=== PATIENT | male | born 1975 | race African-American/Black ===

== ENCOUNTER 2016-12-02 07:29 | Emergency (ER) | payer OTHER ==
[2016-12-02 08:34] LABS: #Basophils 0.1 thou/uL (0.0-0.2); #Eosinphils 0.3 thou/uL (0.0-0.7); #Lymphocytes 0.8 thou/uL (1.20-3.40); #Monocytes 0.5 thou/uL (0.11-0.59); #Neutrophils 5.2 thou/uL (1.40-6.50); %Basophils 1.2 % (0.0-1.0); %Eosinophils 4.1 % (0.0-10.0); %Lymphocytes 11.8 % (21.0-51.0); Mean Platelet Volume 7.9 fL (7.4-10.4); Red Blood Cell (RBC) Count 3.62 mill/uL (4.70-6.10); White Blood Cell (WBC) Count 6.9 thou/uL (4.8-10.8)
[2016-12-02 08:59] LABS: Troponin I 0.137 ng/mL (< 0.028)
[2016-12-02 09:02] LABS: ALT (SGPT) 14 U/L (8-55); AST (SGOT) 18 U/L (5-34); Alkaline Phosphatase 160 U/L (40-150); Anion Gap 24 mmol/L (10-20); BUN (Urea Nitrogen) 41 mg/dL (8.9-20.6); Bilirubin, Total 0.6 mg/dL (0.2-1.2); Calc. Creatinine Clearance 0 mL/min (70-130); Carbon Dioxide 23 mmol/L (22-29); Chloride 99 mmol/L (98-107); Estimated GFR-MDRD 6; Globulin 4.8 g/dL (2.4-3.5); Magnesium 2.2 mg/dL (1.6-2.6); Phosphorus 7.2 mg/dL (2.3-4.7); Protein, Total 8.8 g/dL (6.0-8.3)
== END 2016-12-02 10:07 | disposition home or self-care (01) ==
LOC: ERS 07:29
DX: I12.0 Hypertensive chronic kidney disease with stage 5 chronic kidney disease or end stage renal disease (principal); N18.6 End stage renal disease; E11.9 Type 2 diabetes mellitus without complications; F31.9 Bipolar disorder, unspecified; E78.00 Pure hypercholesterolemia, unspecified; Z99.2 Dependence on renal dialysis
CPT/HCPCS: 36415; 80053; 80307; 82553; 83735; 84100; 84484; 85025; 93005

== ENCOUNTER 2016-12-02 13:26 | Inpatient (IN) | payer OTHER ==
[2016-12-02] MEDS ORDERED: Midazolam HCl 2 mg/2 ml Vial ONE (13:45)
[2016-12-02] MEDS ORDERED: Fentanyl 100 MCG/2 ML VIAL ONE (13:45)
[2016-12-02 13:54] LABS: #Basophils 0.1 thou/uL (0.0-0.2); #Eosinphils 0.2 thou/uL (0.0-0.7); #Lymphocytes 1.3 thou/uL (1.20-3.40); #Monocytes 0.6 thou/uL (0.11-0.59); #Neutrophils 8.1 thou/uL (1.40-6.50); %Basophils 0.9 % (0.0-1.0); %Eosinophils 1.7 % (0.0-10.0); %Lymphocytes 12.9 % (21.0-51.0); %Monocytes 5.7 % (0.0-10.0); Hematocrit 40.8 % (42.0-52.0); Mean Platelet Volume 8.4 fL (7.4-10.4); Red Blood Cell (RBC) Count 4.13 mill/uL (4.70-6.10); White Blood Cell (WBC) Count 10.3 thou/uL (4.8-10.8)
[2016-12-02] MEDS ORDERED: Propofol 1,000 MG/100 ML VIAL IV ONE (14:02)
[2016-12-02 14:12] LABS: Lactic Acid - Sepsis 8.4 mmol/L (0.5-2.2)
[2016-12-02 14:14] LABS: Oxyhemoglobin 97.3 % (94.0-97.0); Sodium 141 mmol/L (135-148)
[2016-12-02 14:16] LABS: ALT (SGPT) 17 U/L (8-55); AST (SGOT) 20 U/L (5-34); Alkaline Phosphatase 179 U/L (40-150); Anion Gap 30 mmol/L (10-20); BUN (Urea Nitrogen) 41 mg/dL (8.9-20.6); Bilirubin, Total 0.7 mg/dL (0.2-1.2); Calc. Creatinine Clearance 0 mL/min (70-130); Calcium 9.2 mg/dL (7.8-10.44); Carbon Dioxide 16 mmol/L (22-29); Chloride 99 mmol/L (98-107); Estimated GFR-MDRD 5; Globulin 5.4 g/dL (2.4-3.5); Protein, Total 9.9 g/dL (6.0-8.3)
[2016-12-02 14:17] LABS: Mechanical Tidal Volume 500 ml; Modified Allen's Test POSITIVE; Vent YES
[2016-12-02 14:21] LABS: Troponin I 0.157 ng/mL (< 0.028)
--- NOTE | 2016-12-02 14:49 | RAD ---
CHEST 1 VIEW: Date: 12/02/16 HISTORY: Emergency exam. COMPARISON: Chest 1 view dated 08/01/16. FINDINGS: The patient is intubated with endotracheal tube tip at the level of the clavicles. Enteric tube is i n place with tip below diaphragm, out of field of view. Mild pulmonary venous congestion. Heart size is enlarged. IMPRESSION: Endotracheal tube tip at the level of the clavicles. Enteric tube tip below diaphragm, out of field of view. POS: [facility]
[2016-12-02] MEDS ORDERED: Dextrose 5% in Water 1,000 ML IV PRN (15:43)
[2016-12-02] MEDS ORDERED: Nitroglycerin 50 MG/250 ML BOT 250 ML IVPB PRN (15:43)
[2016-12-02] MEDS ORDERED: Acetaminophen 650 MG Suppository PR PRN (15:43)
[2016-12-02] MEDS ORDERED: Artificial Tears 18 DROP/0.9 ML EA EYE PRN (15:43)
[2016-12-02] MEDS ORDERED: Eucerin (Mineral Oil/Petrolatum,White) 30 gm Jar TOP PRN (15:43)
[2016-12-02] MEDS ORDERED: Bisacodyl 10 MG SUPP PR PRN (15:43)
[2016-12-02] MEDS ORDERED: Ondansetron HCl/PF 4 MG/2 ML Vial IVP PRN (15:43)
[2016-12-02] MEDS ORDERED: HumaLOG 300 UNITS/3 ML VIAL SC PRN (15:43)
[2016-12-02] MEDS ORDERED: Dextrose 50% Abboject 50 ML SYRINGE SLOW IVP PRN (15:43)
[2016-12-02] MEDS ORDERED: Sedation Protocol FS ONE (15:43)
--- NOTE | 2016-12-02 16:02 | RAD ---
RADIOGRAPH CHEST 1 VIEW: Date: 12/02/16 Time: 2:31 p.m. HISTORY: 41-year-old male status post central line placement. COMPARISON: 12/02/16, 1:29 p.m. FINDINGS: There is a new right subclavian central vascular catheter with distal tip overlying the SVC/right at rial junction. No pneumothorax is identified, but this is a supine view, which would be insensitive for pneumothorax defection. Cardiomegaly. Left lower lobe air space density partially silhouettes th e left hemidiaphragm, worse than before. This is probably atelectasis. Endotracheal tube and NG tube remain. Mild small questionable air space density at right base has developed. IMPRESSION: 1. Right subclavian central vascular catheter placement. 2. Endotracheal tube and NG tube remain. 3. Interval worsening of what may represent left lower lobe atelectasis. ERASTO [] POS: [facility]
[2016-12-02] MEDS ORDERED: DISCONTINUE PREVIOUS NARCOTIC PAIN MEDICATIONS AND BENZODIAZEPINES FS SCH (16:06)
[2016-12-02] MEDS ORDERED: Morphine Sulfate 2 MG/ML SYRINGE SLOW IVP PRN (16:06)
[2016-12-02] MEDS ORDERED: Fentanyl 20 MCG/ML 250 ML IVPB SCH (16:06)
--- NOTE | 2016-12-02 16:09 | CT ---
CT BRAIN NONCONTRAST: 12/02/16 HISTORY: 41-year-old male status post seizure. FINDINGS: There is no midline shift or any other mass effect. There is no evidence of acute intracranial hemo rrhage, large cortical infarct, obstructive hydrocephalus, or extraaxial fluid collection. The calv arium is intact. There is diffuse parenchymal volume loss. There are low attenuation areas in the white matter. These are nonspecific, but in they are probably chronic ischemic white matter changes due to microvascular atherosclerosis. IMPRESSION: 1) No acute intracranial findings. 2) Involutional changes and chronic ischemic white matter changes. 3) Fluid completely filling the nasal cavity and nasopharyngeal airway, a new finding since the prev ious CT of 08/01/16. 4) Diffuse scalp swelling and thickening. 5) Posterior moderately large suboccipital soft tissue density mass, stable since prior CTs dating b ack to 10/01/10. 6) Mucous retention cysts in the bilateral maxillary sinuses and left frontal sinus. 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 raul cedillo POS: [facility]
--- NOTE | 2016-12-02 16:19 | HP ---
PRIMARY CARE PHYSICIAN: Jessica Petty M.D. REASONS FOR ADMISSION: Acute respiratory failure, hypertensive emergency, seizure, encephalopathy, pulmonary edema and volume overload. HISTORY OF PRESENT ILLNESS: A 41-year-old -[place] male with multiple medical problems incl uding hypertension, end-stage renal disease on hemodialysis, diabetes type 2, dyslipidemia and perip heral vascular disease, who was earlier seen in the emergency room around 7:30 a.m. The patient was brought to the ER because he fell down. As per report from the emergency room physician, he was ga mbling and when he was getting out of chair at that time, he fell down and subsequently he was not a ble to maintain his balance. He did not have any head injury. He was brought to emergency room for evaluation. At that time, patient's blood pressure was very high. The patient was due for dialysi s today and that is why he was discharged from the emergency room to get his regular dialysis at his own dialysis center. The patient was waiting in the triage for his ride over there. He was having generalized tonic-clon ic seizure, which was witnessed. Subsequently, he was brought to emergency room for resuscitation. The patient was encephalopathic. He was hypertensive with blood pressure of 245/154 and he was tac hycardic with pulse of 123 and tachypneic with respiratory rate of 28. He was also hypothermic with a temperature of 93.2. He was barely maintaining oxygen saturation with a nonrebreather, but he wa s going hypoxia again and again and that is why this patient required intubation. He did not have any IV access and that is why intraosseous IV line was obtained and subsequently, keith mathews was getting central line. After intubation in the emergency room, he did not have any further seizure. The patient did not get his dialysis yet. At this point, the patient was intubated in the emergency room and that is why unable to get any his tory from him, but I spoke with the ER physician. We are also going to keep this patient in the [facility] after I spoke with Dr. Person, who will manage ventilator and Dr. Che was notified to get em ergent dialysis. REVIEW OF SYSTEMS: All review of systems tried to review with the patient, but unable to review at this point because the patient is intubated and patient was encephalopathic. PAST MEDICAL HISTORY: As per our previous hospital records, the patient has end-stage renal disease , on hemodialysis; labile hypertension; diabetes type 2, on oral hypoglycemics; dyslipidemia; histor y of seizure as a child, but not on any seizure medication; history of left lower extremity tenderne ss infection, status post left below knee amputation and history of polysubstance abuse in the past. PAST SURGICAL HISTORY: Left below knee amputation and left upper extremity AV fistula placement. PAST PSYCHIATRIC HISTORY: Anxiety and depression. ALLERGIES: No known drug allergies. FAMILY HISTORY: Multiple family members with hypertension and diabetes. SOCIAL HISTORY: The patient lives in [place], [place]. He is on disability. No history of tobacco, al cohol or illicit drug abuse currently, but he has a long history of drug abuse with cocaine and andreas jian. CURRENT HOME MEDICATIONS: Based on our hospital record, the patient is on following medications: X anax 2 mg b.i.d., amlodipine 10 mg daily, aspirin 81 mg p.o. daily, PhosLo 667 mg t.i.d., lisinopril 20 mg daily, Toprol-XL 50 mg p.o. daily, minoxidil 20 mg p.o. daily, Zocor 20 mg p.o. at bedtime, R envela 800 mg p.o. daily and glipizide ER 10 mg p.o. daily. EMERGENCY ROOM COURSE: The patient is currently on propofol drip. The patient was given Versed, fe ntanyl, etomidate and rocuronium. PHYSICAL EXAMINATION: VITAL SIGNS: On arrival, blood pressure 245/154, pulse 123, respiratory rate 28, saturation 94% on ventilator and weight 106.5 kilograms. GENERAL: The patient is currently intubated, no acute distress, on ventilator. HEAD: Normocephalic atraumatic. EYES: Pupils are round and reactive to light. ENT: Endotracheal tube in place. NECK: Supple. Range of motion is normal. No meningeal signs of irritation. LUNGS: Bilateral rales noted. Coarse breath sounds noted. Air entry reduced. CARDIAC: S1 and S2 regular. Tachycardia. No murmur, no gallop, no rub. EXTREMITIES: Upper extremity; dialysis graft in the right upper extremity. Passive movement is nor mal. Lower extremity; left jmirs-sjj-ptjo amputation with prosthesis. Right lower extremity has ed nathan. NEUROLOGIC: Unable to assess at this point because the patient is intubated. SKIN: Diaphoretic. SIGNIFICANT LABS AND IMAGING: EKG: Sinus tachycardia. Chest x-ray: Cardiomegaly congestion. CBC : WBC 10.3, hemoglobin 12.7 and platelet 288. ABG reviewed. BMP: Sodium 140, potassium 4.9, chlo ride 99, carbon dioxide 16, anion gap 30, BUN 41, creatinine 12.34, glucose 130, calcium 9.2 and lac tic acid 8.4. LFT: AST 20, ALT 17, alkaline phosphatase 179 and albumin 4.5. ASSESSMENT, PLAN AND IMPRESSION: 1. Acute respiratory failure with hypoxia, most likely because of combined etiology of fluid overlo ad as well as encephalopathy after seizure, all contributed to his hypoxic respiratory failure. Cur rently, the patient is intubated. I spoke with Dr. Person, senior procurement specialist photonics engineer to manage ventila tor. The patient will be admitted in ICU. 2. Acute pulmonary edema. The patient has coarse rales heard from distance. The patient is hypert ensive emergency. The patient was due for dialysis. The patient has end-stage renal disease, on he modialysis and he did not have any dialysis today. He has volume overload status. At this point, I spoke with Dr. Che to do emergent dialysis after admission. The patient is already intubated. 3. Hypertensive emergency. We will closely monitor in CCU. If blood pressure does not come down, then the patient may need a nitroglycerin drip. We will decide about continuous nitroglycerin drip in the next half an hour or will use p.r.n. basis. Our goal is to keep his blood pressure in the 16 0s. We will also use parenteral medication to control his blood pressure. 4. Seizure. The patient had history of seizure as a childhood, most likely metabolic-induced seizu re. We will consult Neurology for their opinion. We will do CT brain in the emergency room. This is a witnessed seizure. As this is first time seizure and that is why he may not need seizure medic ation. We will watch for any seizure. 5. Lactic acidosis, likely related with hypoxia and seizure. We will repeat lactic acid level teresa rrow. 6. Diabetes type 2. We will hold oral diabetic medication. We will continue insulin as per slidin g scale per protocol. We will check Accu-Chek every 6 hourly. 7. Anxiety and depression. The patient was on Xanax 2 mg p.o. b.i.d., unsure if this patient is st ill taking that medication or not. 8. Secondary hyperparathyroidism of renal origin. We will continue PhosLo and Renagel as per home dosage after confirming his home medication. 9. Dyslipidemia. After confirmation of his home medication, we will continue Zocor. 10. Deep venous thrombosis prophylaxis. Heparin 5000 units subcu twice daily. 11. Gastrointestinal prophylaxis. Protonix 40 mg IV daily. 12. CODE STATUS: The patient is FULL CODE. 13. Disposition plan based on clinical course. Total time spent more than 30 minutes to provide critical care to this patient in the emergency room .
[2016-12-02] MEDS: Propofol 1,000 MG/100 ML VIAL IV PRN ×3 (16:33→23:00)
[2016-12-02] MEDS: Sodium Chloride 0.9% 1,000 ML IV SCH (16:44)
--- NOTE | 2016-12-02 17:02 | CON ---
DATE OF CONSULTATION: 12/02/2016 Forty minutes critical care time. REASON FOR CONSULTATION: Acute respiratory failure. HISTORY OF PRESENT ILLNESS: The patient is a 41-year-old male who missed a dialysis session earlier today. He came to the ER, apparently had a seizure in the waiting room, not sure what the circumst ances were behind the seizure. He did not receive any anticonvulsants according to the nursing staf f from the ER, he was intubated and placed on propofol. PAST MEDICAL HISTORY: 1. End-stage renal disease, requiring hemodialysis. 2. Diabetes mellitus. 3. Hypertension. 4. Hyperlipidemia. 5. Childhood seizures. 6. Peripheral vascular disease. 7. Polysubstance abuse in the past. 8. Depression. 9. Anxiety. PAST SURGICAL HISTORY: He has a left yesho-nmp-jsod amputation. He has a left upper extremity AV f istula placement. MEDICATIONS: Prior to admission, glipizide 10 mg every morning, simvastatin 20 mg daily, Renagel 1 tablet daily, minoxidil 20 mg daily, metoprolol XL 50 mg daily, lisinopril 1 tablet daily - dose unk nown, aspirin 81 mg daily, amlodipine 10 mg daily, alprazolam 2 mg b.i.d. Last pneumococcal vaccine on 02/18/2013. ALLERGIES: None. SOCIAL HISTORY: Nonsmoker. He has a history of marijuana and cocaine use in the past, I am not dina e currently. REVIEW OF SYSTEMS: Cannot be obtainable as the patient is intubated. PHYSICAL EXAMINATION: VITAL SIGNS: Pulse 75, O2 sat 100%, respiratory rate 22, blood pressure 187/98. GENERAL: The patient is currently intubated on mechanical ventilation. HEENT: Pupils react. Sclerae anicteric. Oropharynx, endotracheal tube and orogastric tube in place . NECK: Without adenopathy or JVD. LUNGS: Coarse breath sounds bilaterally. CARDIOVASCULAR: S1, S2 regular, without murmur. ABDOMEN: Soft and nontender. EXTREMITIES: Left upper extremity dialysis shunt with palpable thrill. He has a left lower extremi ty xawsr-vop-dmnh amputation. He had a right tibial IO catheter in place which was removed while I was in the room by the nursing staff. LABORATORY AND X-RAY FINDINGS: PH 7.21, pCO2 of 60, pO2 of 231 on SIMV rate 15, tidal volume 500, P EEP 5, FiO2 50%. White blood cell count 10.3, hemoglobin 12.7, hematocrit 40.8, platelet count 288. Sodium 140, potassium 4.9, chloride 99, CO2 of 16, BUN 41, creatinine 12, glucose 130, lactate 8.4 , troponin 0.157. ASSESSMENT: 1. Decompensated chronic renal failure with fluid overload. 2. Seizure. 3. Acute hypercapnic respiratory failure. 4. Lactic acidosis - likely secondary to the seizure. PLAN: 1. Continue mechanical ventilation until the patient has had an opportunity to undergo dialysis. 2. Restart antihypertensives. 3. We would load him with some fosphenytoin. 4. We will follow.
--- NOTE | 2016-12-02 18:10 | CON ---
DATE OF CONSULTATION: 12/02/2016 NEPHROLOGY CONSULTATION REASON FOR CONSULTATION: Respiratory failure, pulmonary edema and end-stage renal disease. HISTORY OF PRESENT ILLNESS: This is a 41-year-old gentleman who presented to the hospital after a s udden onset of acute respiratory failure. The patient has a history of noncompliance, also had seiz ure activity. The patient denies headache. The patient can give no further history as he is intuba pasquale. The patient was supported respiratory jacobs with intubation. PAST MEDICAL HISTORY: Significant for end-stage renal disease, noncompliance, diabetes mellitus, hy pertension, hyperlipidemia, peripheral vascular disease, polysubstance abuse, depression, anxiety, h istory of AV fistula, history of left below knee amputation. HOME MEDICATIONS: List reviewed. ALLERGIES: Reviewed. SOCIOECONOMIC HISTORY: Unavailable. REVIEW OF SYSTEMS: Not obtainable. PHYSICAL EXAMINATION: GENERAL: Patient is resting. VITAL SIGNS: Afebrile, pulse 75, breathing at 16, blood pressure 187/88. GENERAL APPEARANCE AND MENTAL STATUS: Fair. HEAD/NECK: Normocephalic. Atraumatic. EYES: EOMI. No deformity. EARS: Clear. No ulcers. NOSE: Intact. No lesions. MOUTH: Clear. No discharge. THROAT: Clear. No exudate. LUNGS: Clear. No crackles. CARDIAC: S1, S2. No rub. ABDOMEN: Benign. BS+. GENITALIA/RECTUM: Plascencia absent. BACK/EXTREMITIES: Edema 0+ Ulcer- NEUROLOGICAL: Exam cannot be done as the patient is intubated. SKIN: Rash- Bruise- LYMPHATICS: Edema- Ulcer- LABORATORY DATA: Show sodium 140, potassium 4.1. ASSESSMENT AND RECOMMENDATIONS: 1. End-stage renal disease with respiratory failure. Urgent dialysis was initiated and the dialysi s nurse . 2. Anemia, stable. 3. Hypertension. 4. Plan ultrafiltration. 5. Lactic acidosis secondary to seizure. Overall, prognosis is extremely poor. Noncompliance will be addressed to the patient.
[2016-12-02 18:28] LABS: Troponin I 0.162 ng/mL (< 0.028)
[2016-12-02 18:33] LABS: Critical Call CKMBM RESULT DECREASING
[2016-12-02] MEDS: Lorazepam 2 MG/ML VIAL SLOW IVP PRN ×2 (19:13→21:32)
[2016-12-02] MEDS: Labetalol HCl 100 MG/20 ML VIAL SLOW IVP PRN (19:41)
[2016-12-02] MEDS ORDERED: niCARdipine HCl 25 MG in Sodium Chloride 0.9% 250 ML 240 ML IVPB SCH ×2 (20:45→21:00)
[2016-12-02] MEDS ORDERED: Heparin 5,000 UNITS/ML VIAL SC SCH (21:00)
[2016-12-02] MEDS ORDERED: Valproate Sodium 1,000 MG in Sodium Chloride 0.9% 100 ML IVPB SCH (21:00)
[2016-12-02 21:26] LABS: Oxyhemoglobin 96.9 % (94.0-97.0); Sodium 142 mmol/L (135-148)
[2016-12-02 21:29] LABS: Mechanical Tidal Volume 500 ml; Mode SIMV; Pressure Support 10 cmH2O; Vent YES
[2016-12-02 22:27] LABS: Troponin I 0.196 ng/mL (< 0.028)
[2016-12-02 22:29] LABS: Critical Call CKMBM RESULT DECREASING
[2016-12-03] MEDS: Valproate Sodium 500 MG in Sodium Chloride 0.9% 100 ML IVPB SCH ×2 (01:36→14:56)
[2016-12-03 03:21] LABS: #Eosinphils 0.1 thou/uL (0.0-0.7); #Lymphocytes 0.6 thou/uL (1.20-3.40); #Monocytes 0.7 thou/uL (0.11-0.59); #Neutrophils 12.8 thou/uL (1.40-6.50); %Basophils 0.2 % (0.0-1.0); %Eosinophils 0.5 % (0.0-10.0); %Lymphocytes 4.5 % (21.0-51.0); %Monocytes 4.8 % (0.0-10.0); Hematocrit 28.9 % (42.0-52.0); Mean Platelet Volume 8.1 fL (7.4-10.4); Red Blood Cell (RBC) Count 3.02 mill/uL (4.70-6.10); White Blood Cell (WBC) Count 14.3 thou/uL (4.8-10.8)
[2016-12-03] MEDS: Propofol 1,000 MG/100 ML VIAL IV PRN ×4 (03:31→21:39)
[2016-12-03 04:01] LABS: ALT (SGPT) 10 U/L (8-55); AST (SGOT) 12 U/L (5-34); Alkaline Phosphatase 127 U/L (40-150); Anion Gap 18 mmol/L (10-20); BUN (Urea Nitrogen) 26 mg/dL (8.9-20.6); Bilirubin, Total 0.6 mg/dL (0.2-1.2); Calc. Creatinine Clearance 16 mL/min (70-130); Calcium 8.4 mg/dL (7.8-10.44); Carbon Dioxide 29 mmol/L (22-29); Chloride 99 mmol/L (98-107); Estimated GFR-MDRD 8; Globulin 3.6 g/dL (2.4-3.5); Protein, Total 6.8 g/dL (6.0-8.3)
[2016-12-03 06:42] LABS: Oxyhemoglobin 95.1 % (94.0-97.0); Sodium 141 mmol/L (135-148)
[2016-12-03 06:44] LABS: Mechanical Tidal Volume 500 ml; Modified Allen's Test NOT DONE; Vent YES
[2016-12-03 06:45] LABS: Mode SIMV/PSV; Pressure Support 10 cmH2O
--- NOTE | 2016-12-03 07:37 | PRG ---
DATE OF SERVICE: 12/03/2016 Thirty-five minutes critical care time. SUBJECTIVE: Mr. Wright remains intubated on mechanical ventilation. There have been no acute yoon ges in his condition overnight. PHYSICAL EXAMINATION: His temperature is 99.5, pulse 72, blood pressure 133/50, 24-hour intake 1268 , output 1200. NEUROLOGICAL: He will withdraw to deep painful stimuli. Does not follow commands. HEENT: His pupils react to light. He does have a gag reflex. HEENT is otherwise unremarkable exce pt for the endotracheal tube and orogastric tube in place. NECK: No adenopathy, no JVD. CHEST: Clear without wheezing. CARDIAC: S1, S2 regular, without murmur. ABDOMEN: Soft, obese, nontender, nondistended. EXTREMITIES: Left ekbzg-svd-ivvy amputation and left upper arm AV fistula. LABORATORY DATA: White blood count 14.3, hemoglobin 9.1, hematocrit 28.9, platelet count 234. PH 7 .46, pCO2 of 42, pO2 of 79 on SIMV rate 16, tidal volume 500, PEEP 5, pressure support 10, FiO2 30%. Sodium 141, potassium 4.8, chloride 99, CO2 29, BUN 26, creatinine 9.2, and glucose 114. Lactate 2.4. ASSESSMENT: 1. Acute respiratory failure, requiring mechanical ventilation. 2. Encephalopathy -- patient may be postictal after seizures yesterday. 3. Hypercapnic respiratory failure, which has improved. 4. Lactic acidosis, which is improved and was probably secondary to seizures. PLAN: 1. Continue mechanical ventilation until the patient's mental status has improved. 2. Continue nicardipine drip for control of blood pressure. 3. Initiate enteral tube feedings. 4. Seizure management per Neurology. 5. Renal failure management per Nephrology. 6. Adjust mechanical ventilation rate.
--- NOTE | 2016-12-03 07:38 | PDOC.PN ---
- Subjective Encounter Start Date: 12/03/16 Encounter Start Time: 07:36 Mr. Wright is intubated, he has mild sedation, and is a little agitated, and has been biting on the ET tube. - Objective MAR Reviewed: Yes Vital Signs & Weight: Vital Signs (12 hours) Temp Pulse Resp BP Pulse Ox 12/03/16 06:14 72 134/54 L 12/03/16 06:11 73 16 100 12/03/16 06:00 16 12/03/16 05:00 99.5 F 12/03/16 04:00 16 12/03/16 02:29 76 12/03/16 01:59 16 12/03/16 00:31 70 16 100 12/03/16 00:00 100.0 F H 16 12/02/16 22:05 112 H 12/02/16 22:00 16 12/02/16 20:00 98.8 F 20 12/02/16 19:50 98.9 F 108 H 20 100 12/02/16 19:41 108 H 209/114 H Weight Weight 230 lb 6.129 oz Most Recent Monitor Data Heart Rate from ECG 72 NIBP 133/50 NIBP BP-Mean 95 Respiration from ECG 14 SpO2 100 I&O: 12/02/16 12/03/16 12/04/16 06:59 06:59 06:59 Intake Total 1268.1 Output Total 1200 Balance 68.1 Result Diagrams: 12/03/16 02:53 12/03/16 02:53 Additional Labs: Accuchecks 12/03/16 12/03/16 12/02/16 06:18 00:09 18:30 POC Glucose 121 H 95 90 Phys Exam - Physical Examination HEENT: PERRLA + coarse breath sounds Cardiovascular: RRR, no significant murmur Gastrointestinal: soft, non-tender, positive bowel sounds Musculoskeletal: no edema Dx/Plan (1) Seizure Code(s): R56.9 - UNSPECIFIED CONVULSIONS Status: Acute (2) Acute respiratory failure Code(s): J96.00 - ACUTE RESPIRATORY FAILURE, UNSP W HYPOXIA OR HYPERCAPNIA Status: Acute (3) Diabetes mellitus type 2 Code(s): E11.9 - TYPE 2 DIABETES MELLITUS WITHOUT COMPLICATIONS Status: Chronic (4) End stage renal failure on dialysis Code(s): N18.6 - END STAGE RENAL DISEASE; Z99.2 - DEPENDENCE ON RENAL DIALYSIS Status: Chronic (5) Malignant hypertension Code(s): I10 - ESSENTIAL (PRIMARY) HYPERTENSION Status: Chronic - Plan * Acute hypoxic respiratory failure- following seizure- patient is currently intubated- Manganese Heater Managing * HTN- patient is currently on a Cardene drip- he now has an OG tube- will start some of his oral antihypertensives, and begin to wean Cardene drip * DM- continue SSI insulin. * Seizure- ? etiology from Hypertensive emergency- Patient has been started on Valproate by Neurologist * ESRD- dialysis as per Nephrology
[2016-12-03] MEDS ORDERED: Lisinopril 20 MG TAB PO SCH (09:00)
[2016-12-03] MEDS: Famotidine/PF 20 mg/2ml Vial SLOW IVP SCH (09:25)
[2016-12-03] MEDS: Lisinopril 20 MG TAB PO SCH (09:26)
--- NOTE | 2016-12-03 10:07 | RAD ---
RADIOGRAPH CHEST 1 VIEW: Date: 12/03/16 Time: 0510 HOURS HISTORY: 41-year-old male in respiratory failure. COMPARISON: 12/02/16 at 1431 hours. FINDINGS: There has been mild interval improvement of aeration in the retrocardiac portion of left lower lobe, with better visualization of the medial aspect of the left hemidiaphragm now. Small air space densi ty at the right medial base lower lobe remains. Cardiomegaly remains. Endotracheal tube, NG tube, an d right subclavian central venous catheter remain. Pulmonary vascular prominence. No pneumothorax. N o interval change overall. IMPRESSION: 1. Cardiomegaly. 2. Mild bilateral lower lobe nonspecific air space densities. The one on the left has improved. 3. No other interval change. ERASTO [] POS: [facility]
--- NOTE | 2016-12-03 10:42 | PRG ---
DATE OF SERVICE: 12/03/2016 SUBJECTIVE: This is a 41-year-old gentleman being seen for end-stage renal disease. PHYSICAL EXAMINATION: GENERAL: Patient is resting. VITAL SIGNS: Afebrile, pulse 80, breathing at 16, blood pressure 140/63. GENERAL APPEARANCE AND MENTAL STATUS: Fair. HEAD/NECK: Normocephalic. Atraumatic. EYES: EOMI. No deformity. EARS: Clear. No ulcers. NOSE: Intact. No lesions. MOUTH: Clear. No discharge. THROAT: Clear. No exudate. LUNGS: Clear. No crackles. CARDIAC: S1, S2. No rub. ABDOMEN: Benign. BS+. GENITALIA/RECTUM: Plascencia absent. BACK/EXTREMITIES: Edema 0+ Ulcer- NEUROLOGICAL: The patient is resting. SKIN: Rash- Bruise- LYMPHATICS: Edema- Ulcer- LABORATORY DATA: Show hemoglobin 9.1, potassium is 4.8. ASSESSMENT AND RECOMMENDATIONS: 1. Stage 6 chronic kidney disease. We will plan dialysis as scheduled. 2. Pulmonary edema. We will plan dialysis. 3. Hypertension, stable. 4. Medications based on glomerular filtration rate are appropriate.
[2016-12-03] MEDS: Sodium Chloride 0.9% 1,000 ML IV SCH (17:57)
[2016-12-03] MEDS ORDERED: Pantoprazole 40 MG VIAL IVP SCH (21:00)
--- NOTE | 2016-12-03 21:58 | CON ---
DATE OF CONSULTATION: 12/03/2016 REFERRING PHYSICIAN: Dr. Josiah Flores. REASON FOR CONSULTATION: Status epilepticus. HISTORY OF PRESENT ILLNESS: Mr. Wright is a 41-year-old -Emirati male with multiple medica l problems including hypertension, end-stage renal disease on dialysis, diabetes, dyslipidemia, and peripheral vascular disease, who has been consulted for evaluation of seizures. History is obtained from patient's medical chart. Apparently, he was gambling and when he was getting out of chair, at that time he fell down and subsequently he was not able to maintain his balance. He was brought to the Emergency Room for further evaluation. At that time, patient's blood pressure was very high. Patient was due for dialysis on that day and as they felt that this was secondary to him missing beverley lysis for a couple of times a day, he was planned to be discharged home for outpatient dialysis. Ty mathews was waiting in the triage room and while he was there he started having generalized tonic-clon ic seizure, which was witnessed. He was brought back to the emergency room and he had to be intubat ed to protect his airways. Apparently, the patient had episodes of myoclonic jerks. There have bee n witnessed by the nurses. There have been very persistent. I did speak with patient's mother who was at bedside. She reported that patient has a history of seizure disorder in the past, but there was probably for about 10 years ago. He has not been on any seizure medications since that time. Bethany cuellar has not had any seizures since that time. PAST MEDICAL HISTORY: Significant for hypertension, diabetes, hyperlipidemia, end-stage renal disea se on dialysis, history of seizure as a child and history of polysubstance abuse. PAST SURGICAL HISTORY: Significant for left below the knee amputation, left upper extremity AV fist janette placement. SOCIAL HISTORY: Patient does not smoke, drink alcohol, or use illicit drugs; however, he does have a history of cocaine and marijuana use in the past. CURRENT MEDICATIONS: Please review MAR. ALLERGIES: No known drug allergies. REVIEW OF SYSTEMS: Unable to obtain. FAMILY HISTORY: Noncontributory. PHYSICAL EXAMINATION: VITAL SIGNS: Blood pressure of 149/78, pulse of 66, temperature of 98.4, respirations of 17, O2 sat s of 99% on room air. GENERAL: Intubated and sedated -Emirati male, in no apparent distress. RESPIRATORY: Clear to auscultation bilaterally. CARDIOVASCULAR: Regular rate and rhythm. NEUROLOGIC: Mental status: The patient is intubated and sedated with propofol. He does not follow any commands. Cranial nerves: Pupils are 3 mm and reactive. Corneal reflexes are present bilater ally. He does breathe over the ventilator machine. Motor exam showed normal tone and bulk in both upper and lower extremities. He spontaneously moves both upper and lower extremities and he is on 2 -point restraint. Sensory: He withdraws to pain in both upper and lower extremities. Babinski, pl marianna responses flexion bilaterally. LABORATORY DATA: Reviewed, which included CBC, CMP, which is significant for WBC of 14.3, hemoglobi n 9.1, hematocrit 28.9, BUN of 26, creatinine 9.16, otherwise, unremarkable. IMAGING STUDIES: CT head without contrast was reviewed, which showed no acute intracranial abnormal ity. IMPRESSION: 1. Generalized tonic-clonic seizure. 2. Myoclonic jerking. 3. End-stage renal disease on dialysis. ASSESSMENT AND PLAN: Mr. Wright is a 41-year-old -Emirati male with his multiple medical p [facility], who presented with multiple seizures. Yesterday, I had started patient on Depacon IV with 1000 mg loading dose followed by 500 mg b.i.d. of maintenance therapy. This has helped reduce the m yoclonic jerks. There were witnessed by the nurse. At this time, I would recommend continuing on D epacon IV 500 mg b.i.d. I will check a Depakote level in the morning. I will obtain MRI brain with out contrast and EEG on tomorrow morning. Continue supportive care. Thank you for consultation.
[2016-12-04] MEDS: Lorazepam 2 MG/ML VIAL SLOW IVP PRN (00:25)
[2016-12-04] MEDS: Valproate Sodium 500 MG in Sodium Chloride 0.9% 100 ML IVPB SCH ×2 (01:09→15:30)
[2016-12-04] MEDS: Propofol 1,000 MG/100 ML VIAL IV PRN ×5 (01:13→20:27)
--- NOTE | 2016-12-04 01:20 | PDOC.EVN ---
Event Note - Event Note Event Note: Pt seen for: penile bleeding. Intubated, unable to provide any history. Bleeding followed removal of Plascencia catheter. Urology service has been consulted (pt also had a high residual, unclear whether blood or urine), pt going for cystoscopy.
[2016-12-04 03:23] LABS: Bilirubin Negative (Negative); Blood, Urine Large (Negative); Glucose, Urine (Dipstick) Negative (Negative); Ketone, Urine Trace mg/dL (Negative); Nitrite Negative (Negative); Protein, Urine (Dipstick) 300 mg/dL (Neg-Trace)
[2016-12-04 03:26] LABS: Bacteria/HPF None Seen HPF (None Seen); Hyaline Casts/LPF 0-3 HYALINE CAST LPF (0-3 Hyaline); RBC/HPF GREATER THAN 50-TNTC HPF (0-3); Squamous Epithelial 0-3 HPF (0-3)
[2016-12-04 03:37] LABS: #Eosinphils 0.1 thou/uL (0.0-0.7); #Lymphocytes 0.7 thou/uL (1.20-3.40); #Monocytes 0.3 thou/uL (0.11-0.59); #Neutrophils 18.8 thou/uL (1.40-6.50); %Basophils 0.2 % (0.0-1.0); %Eosinophils 0.6 % (0.0-10.0); %Lymphocytes 3.4 % (21.0-51.0); %Monocytes 1.7 % (0.0-10.0); Hematocrit 33.6 % (42.0-52.0); Mean Platelet Volume 7.9 fL (7.4-10.4); White Blood Cell (WBC) Count 19.9 thou/uL (4.8-10.8)
--- NOTE | 2016-12-04 04:45 | OP ---
DATE OF PROCEDURE: 12/04/2016 SURGEON: Dr. Lionel Araiza PREPROCEDUREAL DIAGNOSES: 1. Urinary retention of over 700 mL. 2. History of no urine output for more than 24 hours. 2. Gross hematuria with possible catheter misplacement. POSTOPERATIVE DIAGNOSES: 1. Urinary retention of over 700 mL. 2. History of no urine output for more than 24 hours. 3. Gross hematuria with possible catheter misplacement. 4. Membranous urethral level trauma secondary to balloon insufflation. 5. Benign prostatic hypertrophy with obstruction. 6. Distal urethral stricture disease of uncertain origin, likely vascular secondary to the patient' s known peripheral vascular disease. 7. Urinary retention of approximately 800 mL. PROCEDURE: 1. Cystourethroscopy, 18216. 2. Complicated Plascencia catheter placement over Glidewire 81964. BRIEF HISTORY AND INDICATION FOR PROCEDURE: Mr. Krishna Wright is a 41-year-old Am erican male who presented to the emergency department yesterday after apparent witnessed seizure whi le gambling with friends. The patient was brought to the emergency department, developed a second s eizure. The patient is routine hemodialysis patient of Dr. Erik Che'rubens secondary to hypertension an d diabetes mellitus. The patient also has peripheral vascular disease, has undergone a previous bel ow knee amputation on the left side. Mr. Wright had an indwelling Plascencia catheter placed during his initial hospitalization for his second seizure day before yesterday and had no urine output for mor e than 24 hours. The patient's indwelling Plascencia catheter was discontinued and bright red blood per urethra was noted. I was consulted to evaluate and assess the patient at that time. I did have dur ing the course of the evaluation of the patient a bladder scan performed which showed a residual vol ume within his bladder of 700 mL. Based on the findings, we opted to proceed with cystoscopic assessment. Consent was obtained from t he patient's family via telephone due to the fact that the patient was unable to consent for himself due to intubation and sedated status. TECHNICAL PROCEDURE: Consent was verified. The patient was evaluated in his Intensive Care Unit be d. He was prepped and draped in usual sterile fashion using Betadine prep. The circumcised penis a ppeared to be without gross external lesion, although gross blood was present per urethra. A comple te physical exam was performed. Please see the separately dictated consultation note on this patien t. The patient was cystoscopically evaluated using a 14-Tuvaluan flexible scope, which was passed per ure thra after application of 5 mL of 2% viscous lidocaine jelly. This was advanced and a large amount of clot material was observed in the patient's urethra was terminated at the urinary sphincter level . Careful evaluation notes injury within the 5 cm distal to the urinary sphincter. We were able to negotiate into the patient's prostate gland, which appeared to be obstructive in character and thro ugh this enlarged prostate gland into the patient's bladder. There was no significant bleeding obse rved within the patient's bladder. We placed a 0.035 inch Glidewire into the patient's bladder. We then removed the flexible cystoscope leaving the wire in place. We utilized [place] technique to p lace an 18 [place] 3-way irrigation catheter into the patient's bladder. The catheter was advanced i nto the patient's bladder and inflated to 30 mL. Catheter was then placed to a CBI bag and also to a Plascencia drainage bag. We placed the CBI into the off position in case it is needed for later hematu kathy episodes. The initial drainage from the patient's bladder appeared to be about 800 mL of relati vely dark urine indicating a probable ability to concentrate to some degree. FINDINGS: 1. Probable urethral injury in the bulbar area secondary to catheterization. 2. Urinary retention, likely secondary to enlarged prostate gland. 3. Distal urethral strictures of uncertain, but probable vascular origin. COMPLICATIONS: None.
[2016-12-04 05:25] LABS: Oxyhemoglobin 91.1 % (94.0-97.0); Sodium 141 mmol/L (135-148)
[2016-12-04 05:26] LABS: Mechanical Tidal Volume 500 ml; Mode SIMV; Pressure Support 10 cmH2O; Vent YES
[2016-12-04] MEDS: Acetaminophen 650 MG/20.3 ML UDCUP PER TUBE PRN (06:23)
[2016-12-04 07:00] LABS: Anion Gap 22 mmol/L (10-20); BUN (Urea Nitrogen) 37 mg/dL (8.9-20.6); Calc. Creatinine Clearance 13 mL/min (70-130); Calcium 8.2 mg/dL (7.8-10.44); Carbon Dioxide 26 mmol/L (22-29); Chloride 98 mmol/L (98-107); Estimated GFR-MDRD 6
--- NOTE | 2016-12-04 07:10 | PRG ---
DATE OF SERVICE: 12/04/2016 Thirty-five minutes critical care time. SUBJECTIVE: Mr. Wright remains intubated on mechanical ventilation. He developed urethral bleedin g last night after his Plascencia was pulled and Urology had to be consulted. OBJECTIVE: VITALSIGNS: On exam today, his temperature is 103, pulse 93, blood pressure 143/64. A 24 hour inta ke 1659, output 470. NEUROLOGICAL: The patient is not following commands, but will wake up. HEENT: Pupils react. Sclerae are anicteric. Oropharynx: ET tube in place, has a leak. CARDIOVASCULAR: S1 and S2 regular. LUNGS: Coarse rhonchi. ABDOMEN: Soft, nontender. EXTREMITIES: No edema. He has palpable thrill, left upper extremity shunt. LABORATORY DATA: White blood cell count 19.9, hemoglobin 10, hematocrit 33.6, platelet count 242, p H 7.47, PCO2 39, pO2 60. Valproic acid low at 42. ASSESSMENT: 1. Acute respiratory failure requiring mechanical ventilation. 2. Fever - has a new right lower lobe infiltrate on chest x-ray. 3. Acute renal failure. 4. Encephalopathy. 5. Status post cardiopulmonary arrest. PLAN: 1. Need to switch out the endotracheal tube. 2. Bronchoscopy with lavage, right lower lobe. 3. Adjust antibiotics.
--- NOTE | 2016-12-04 07:38 | OP ---
DATE OF PROCEDURE: 12/04/2016 SURGEON: Dr. Jose G Person PROCEDURE: Exchange of endotracheal tube and Fiberoptic bronchoscopy with bronchoalveolar lavage of the right lower lobe. ANESTHESIA: The patient had been previously sedated with propofol. He was additionally given 100 m g of succinylcholine IV. Using the GlideScope, the patient's current 7.5 endotracheal tube which had a leak in the cuff was e xchanged for an 8.5 endotracheal tube and secured at 27 cm at the lip. This was done without diffic ulty. The bronchoscope was then placed through an adapter down the endotracheal tube. The endotracheal tu be was approximately 5-6 cm above the katherine. There were no obvious endobronchial lesions present. There were some scant mucoid secretions present in the right middle lobe. Bronchoalveolar lavage w as performed in the right lower lobe with approximately 100 mL of normal saline. This was sent for appropriate studies. He tolerated the procedure well.
[2016-12-04] MEDS ORDERED: Vancomycin HCl 1 GM in Premix Bag 1 BAG IVPB SCH (07:45)
[2016-12-04] MEDS ORDERED: Vancomycin HCl 1.25 GM in Sodium Chloride 0.9% 250 ML 250 ML IVPB SCH (07:45)
[2016-12-04] MEDS ORDERED: Vancomycin Sliding Scale 1 EACH FS ONE (07:45)
[2016-12-04] MEDS ORDERED: HOLD VANCOMYCIN FOR LEVEL >20 FS SCH (07:45)
[2016-12-04] MEDS ORDERED: Vancomycin HCl 500 MG in Sodium Chloride 0.9% 100 ML IVPB SCH (07:45)
[2016-12-04] MEDS ORDERED: Vancomycin HCl 750 MG in Sodium Chloride 0.9% 250 ML 250 ML IVPB SCH (07:45)
[2016-12-04] MEDS ORDERED: Vancomycin HCl 1.5 GM in Sodium Chloride 0.9% 250 ML 300 ML IVPB SCH (07:45)
[2016-12-04] MEDS: Piperacillin/Tazobactam 2.25 GM in Sodium Chloride 0.9% 100 ML IVPB SCH ×3 (07:50→23:34)
--- NOTE | 2016-12-04 08:38 | CON ---
DATE OF HOSPITAL ADMISSION: 12/02/2016 DATE OF CONSULTATION REQUEST AND REPORT: 12/04/2016 REASON FOR CONSULTATION: 1. Gross hematuria for catheter removal. 2. Anuria for 24 hours. 3. Apparent urinary retention. HISTORY OF PRESENT ILLNESS: Mr. Krishna Wright is a 41-year-old -Prydeinig male with en d-stage renal disease secondary to hypertension and diabetes mellitus, who is currently on hemodialy sis. The patient presented to the emergency department on 12/02/2016, with a history of seizure and had a witnessed seizure in the emergency department. The patient was apparently gambling at home a nd was getting out of a chair and developed a seizure and fell. In the emergency department, he was also witnessed to have a secondary seizure. The patient's blood pressure was relatively high. The patient was due for hemodialysis and was to get dialysis at his regular dialysis center. Developed a generalized tonic-clonic seizure, which was witnessed. During the course of his admission, dior frye received a Plascencia catheter, which was removed today after no urine output for 24 hours. Family me mbers are unaware as to whether the patient produces urine or not, the patient is not able to provid e any information. At the present time, he is intubated and sedated and on a ventilator. REVIEW OF SYSTEMS: The patient is unable to participate in a review of systems. All of the history is obtained from review of records and from discussion with the patient's current nursing staff. PAST MEDICAL HISTORY: 1. Hypertension. 2. Diabetes mellitus, type 2, on oral hypoglycemics. 3. Dyslipidemia. 4. History of seizures as a child. 5. Peripheral vascular disease, status post left loxap-aom-bjwm amputation. 6. Polysubstance abuse. PAST SURGICAL HISTORY: 1. Left hxmwy-ehr-wwks amputation. 2. Left upper extremity AV fistula placement. PSYCHIATRIC HISTORY: Positive for anxiety and depression as well as polysubstance abuse. ALLERGIES: No known drug allergies. FAMILY MEDICAL HISTORY: Multiple family members with hypertension and diabetes. SOCIAL HISTORY: The patient is on disability, gambles at home or with friends for entertainment and he has a history of cocaine and marijuana use. He is not known to be a smoker, but due to the [facility] history we believe he may be. MEDICATIONS: Current medication history as an outpatient included: 1. Xanax 2 mg twice daily. 2. Amlodipine 10 mg per day. 3. Aspirin 81 mg per day. 4. PhosLo 667 mg t.i.d. 5. Lisinopril 20 mg daily. 6. Toprol XL 50 mg per day. 7. Minoxidil 20 mg p.o. q. day. 8. Zocor 20 mg p.o. at bedtime. 9. Renvela 800 mg p.o. q. day. 10. Glipizide 10 mg ER p.o. q. day. PHYSICAL EXAMINATION: VITAL SIGNS: The patient's temperature is 99.4, pulse 68, respirations 19, O2 saturation on the joellen tilator is 100%. GENERAL: This is an intubated, sedated, -Prydeinig man, in no distress. He was evaluated und er sedation, does not provide any useful information due to the intubation and sedation status. HEAD, EYES, EARS, NOSE, AND THROAT: The patient is intubated. NECK: Appears supple. LUNGS: Clear to auscultation bilaterally with coarse breath sounds consistent with intubation. CARDIAC: The patient has a regular rate and rhythm. ABDOMEN: Soft and nontender above the umbilicus and relatively full below the umbilicus. BACK EXAMINATION: There are no decubiti on the back of the sacral area, the patient is producing br own stool. EXTREMITIES: The patient is status post a left hndzd-leu-zzui amputation, has a decubitus on the st ump. The right foot appears to be free of current gangrene lesions or decubiti. GENITOURINARY: The patient is circumcised. There is gross blood at the urethral meatus. This is n ot bleeding to the degree it was when I was called to see the patient and did arrive within about 30 minutes of the initial consult call. Testes are found present in the scrotum; they are smooth, ano dular, and nontender. Palpation of inguinal canals finds no evidence of hernia. Digital rectal exa mination was performed, finds prostate gland, which is moderately enlarged at about 40 grams. Due t o the sedation status, unable to determine for the patient's prostate gland is tender. There are no specifically sinister nodules, although the overall characteristics of the prostate gland are somew hat indurated. LABORATORY STUDIES: The patient has never had a PSA test in this hospital facility. Current labora tory show the patient's white count at 14,300, hemoglobin 9.1 with hematocrit of 28.9, which indicat es some volume expansion since yesterday. Neutrophil percentage is 90% with a left shift consistent with possible infection, ANC elevated at 12,800. Serum chemistry show the patient's current blood urea nitrogen at 26 with a creatinine of 9.16. Glucose elevated on several tests, but down to 105 o n the most recent test. MICROBIOLOGY: No specimens collected yet today. IMAGING: No CT scan has been performed on the abdomen and pelvis. The patient does have chest x-ra y imaging studies performed due to his current intubation status and x-ray on 12/03/2016, shows card iomegaly, mild bilateral lower lobe nonspecific airspace densities and no other interval changes. ASSESSMENT AND PLAN: 1. Gross blood per urethra, this is likely secondary to the catheter misplacement at initial insert ion. Please see the procedure notes today for cystoscopy and catheter placement. Gross hematuria i n this case is most likely traceable directly to trauma due to the uncertain smoking history. The p atient may benefit from a formal hematuria evaluation when he was in more healthy condition. 2. Urinary retention. A bladder scan was obtained during the course of the evaluation of the patie nt, returned with 700 mL of retained urine. Due to this, the patient will undergo replacement of hi s Plascencia catheter tonight by cystoscopic means or SP tube will be placed. Over 80 minutes of initial consultation time was spent in the evaluation, assessment on this patient today.
--- NOTE | 2016-12-04 09:13 | PRG ---
DATE OF SERVICE: 12/04/2016 NEPHROLOGY PROGRESS NOTE SUBJECTIVE: The patient was seen is in ICU and he is having an EEG done and not waking up. I have discussed with the bedside nurse. PHYSICAL EXAMINATION: GENERAL: This is an obese male seen in ICU, intubated. VITAL SIGNS: Temperature 101.1, pulse 91, respiratory rate 18, blood pressure 140/64. HEENT: Intubated. CARDIOVASCULAR SYSTEM: S1, S2 heard. RESPIRATORY: Clear. GASTROINTESTINAL: Abdomen is soft. MUSCULOSKELETAL: 1+ edema. LABORATORY DATA AND X-RAY FINDINGS: Potassium is 5.2, BUN is 37, creatinine 10.7. Chest x-ray with fluid overload with bilateral infiltrates. ASSESSMENT AND PLAN: 1. End-stage renal disease. Plan is to have dialysis today. 2. Noncompliance. The patient is very noncompliant with his dialysis. 3. Hyperkalemia. Will have dialysis with 2K bath. 4. Fluid overload. 5. Respiratory failure. 6. Anemia of end-stage renal disease. 7. Edema. Plan is to have dialysis today and continue dialysis as tolerated. Overall, long-term prognosis see ms to be poor and we will follow.
--- NOTE | 2016-12-04 09:41 | RAD ---
CHEST 1 VIEW: Date: 12/04/16 HISTORY: Dyspnea. Follow-up. COMPARISON: 12/03/16. FINDINGS: Cardiac silhouette is magnified and enlarged. Pulmonary vasculature is more engorged. Air space infi ltrate throughout the right lung has progressed since the prior study. Mediastinum remains midline. Lines and tubes are unchanged in position. quality assurance monitor chassis leads overlie the chest. IMPRESSION: Worsening infiltrate throughout the right lung. POS: GAVINO
--- NOTE | 2016-12-04 10:40 | PDOC.PN ---
- Subjective Encounter Start Date: 12/04/16 Encounter Start Time: 10:38 Mr. Wright is intubated and sedated. - Objective MAR Reviewed: Yes Vital Signs & Weight: Vital Signs (12 hours) Temp Pulse Resp BP Pulse Ox 12/04/16 10:03 82 129/56 L 12/04/16 10:00 15 12/04/16 09:30 100 12/04/16 08:00 101.1 F H 91 14 100 12/04/16 07:29 89 145/75 H 12/04/16 07:00 101.1 F H 12/04/16 05:53 103.1 F H 12/04/16 05:37 30 H 12/04/16 04:00 25 H 12/04/16 03:00 91 12/04/16 02:00 30 H 12/04/16 01:00 98.7 F 12/04/16 00:29 68 19 100 12/04/16 00:00 15 12/03/16 22:44 74 Weight Weight 232 lb 2.348 oz Most Recent Monitor Data Heart Rate from ECG 80 NIBP 131/53 NIBP BP-Mean 83 Respiration from ECG 21 SpO2 99 I&O: 12/03/16 12/04/16 12/05/16 06:59 06:59 06:59 Intake Total 1268.1 1659.7 Output Total 1200 470 50 Balance 68.1 1189.7 -50 Result Diagrams: 12/04/16 03:24 12/04/16 03:29 Additional Labs: Accuchecks 12/04/16 12/04/16 12/03/16 05:31 01:38 17:56 POC Glucose 96 95 105 12/03/16 12:44 POC Glucose 101 Phys Exam - Physical Examination HEENT: PERRLA Respiratory: clear to auscultation bilateral + coarse breath sounds Cardiovascular: RRR, no significant murmur Gastrointestinal: soft, non-tender, positive bowel sounds Musculoskeletal: no edema Dx/Plan (1) Seizure Code(s): R56.9 - UNSPECIFIED CONVULSIONS Status: Acute (2) Acute respiratory failure Code(s): J96.00 - ACUTE RESPIRATORY FAILURE, UNSP W HYPOXIA OR HYPERCAPNIA Status: Acute (3) Diabetes mellitus type 2 Code(s): E11.9 - TYPE 2 DIABETES MELLITUS WITHOUT COMPLICATIONS Status: Chronic (4) End stage renal failure on dialysis Code(s): N18.6 - END STAGE RENAL DISEASE; Z99.2 - Status: Chronic (5) Malignant hypertension Code(s): I10 - ESSENTIAL (PRIMARY) HYPERTENSION Status: Chronic - Plan * Seizure- ? etiology, concussion from the fall? Neurology work-up is in progress * He makes urine, so will check a UDS to be complete * Continue Valproate * Respiratory failure- patient has been found to have a Right Lung Infiltrate- and antibiotics have been broaded to Vancomycin and Zosyn. * HTN- he is now off the Cardene drip- his blood pressure is stable * DM- blood glucose is stable
[2016-12-04] MEDS: Famotidine/PF 20 mg/2ml Vial SLOW IVP SCH (13:59)
[2016-12-04] MEDS: Lisinopril 20 MG TAB PO SCH (13:59)
[2016-12-04 15:11] LABS: Amphetamine Not Detected (NotDetected); Methadone Not Detected (NotDetected); Methamphetamine Not Detected (NotDetected)
[2016-12-04] MEDS: Sodium Chloride 0.9% 1,000 ML IV SCH (17:50)
[2016-12-05] MEDS: Propofol 1,000 MG/100 ML VIAL IV PRN ×5 (01:22→18:33)
[2016-12-05] MEDS: Valproate Sodium 500 MG in Sodium Chloride 0.9% 100 ML IVPB SCH (01:22)
[2016-12-05 06:12] LABS: Hematocrit 28.8 % (42.0-52.0); Mean Platelet Volume 8.6 fL (7.4-10.4); Red Blood Cell (RBC) Count 3.01 mill/uL (4.70-6.10); White Blood Cell (WBC) Count 19.5 thou/uL (4.8-10.8)
[2016-12-05 06:19] LABS: Anion Gap 16 mmol/L (10-20); BUN (Urea Nitrogen) 32 mg/dL (8.9-20.6); Calc. Creatinine Clearance 18 mL/min (70-130); Calcium 8.2 mg/dL (7.8-10.44); Carbon Dioxide 29 mmol/L (22-29); Chloride 99 mmol/L (98-107); Estimated GFR-MDRD 9
[2016-12-05 06:23] LABS: Band 9 % (5-11); Neutrophil 85 % (42-75)
[2016-12-05 07:27] LABS: Oxyhemoglobin 95.5 % (94.0-97.0)
[2016-12-05 07:30] LABS: Mechanical Tidal Volume 500 ml; Mode SIMV; Modified Allen's Test POSITIVE; Pressure Support 10 cmH2O; Vent YES
--- NOTE | 2016-12-05 07:46 | PDOC.PN ---
- Subjective Encounter Start Date: 12/05/16 Encounter Start Time: 07:44 Mr. Wright is intubated, and sedated. He is responsive. - Objective MAR Reviewed: Yes Vital Signs & Weight: Vital Signs (12 hours) Temp Pulse Resp BP Pulse Ox 12/05/16 07:01 76 151/61 H 12/05/16 07:00 100 12/05/16 06:00 13 12/05/16 04:00 98.9 F 16 12/05/16 02:41 82 131/56 L 12/05/16 02:00 14 12/05/16 00:14 79 148/71 H 12/05/16 00:00 99.9 F H 15 12/04/16 22:27 80 142/71 H 12/04/16 22:00 18 12/04/16 20:00 99.2 F 81 17 99 Weight Admit Weight 232 lb 2.348 oz Weight 226 lb 3.108 oz Most Recent Monitor Data Heart Rate from ECG 76 NIBP 138/71 NIBP BP-Mean 97 Respiration from ECG 22 SpO2 100 I&O: 12/04/16 12/05/16 12/06/16 06:59 06:59 06:59 Intake Total 1659.7 1521 Output Total 470 367 Balance 1189.7 1154 Result Diagrams: 12/05/16 05:28 12/05/16 05:28 Additional Labs: Accuchecks 12/05/16 12/05/16 12/04/16 05:12 00:43 18:16 POC Glucose 116 H 145 H 107 12/04/16 12:22 POC Glucose 99 Phys Exam - Physical Examination HEENT: PERRLA Respiratory: no wheezing, no rales, no rhonchi, clear to auscultation bilateral Cardiovascular: RRR, no significant murmur, no rub Gastrointestinal: soft, non-tender, positive bowel sounds Musculoskeletal: no edema Dx/Plan (1) Seizure Code(s): R56.9 - UNSPECIFIED CONVULSIONS Status: Acute (2) Acute respiratory failure Code(s): J96.00 - ACUTE RESPIRATORY FAILURE, UNSP W HYPOXIA OR HYPERCAPNIA Status: Acute (3) Diabetes mellitus type 2 Code(s): E11.9 - TYPE 2 DIABETES MELLITUS WITHOUT COMPLICATIONS Status: Chronic (4) End stage renal failure on dialysis Code(s): N18.6 - END STAGE RENAL DISEASE; Z99.2 - DEPENDENCE ON RENAL DIALYSIS Status: Chronic (5) Malignant hypertension Code(s): I10 - ESSENTIAL (PRIMARY) HYPERTENSION Status: Chronic - Plan * HTN Emergency - blood pressure is better. It is noted that his UDS was positive for cocaine. This may have precipitated the Hypertensive crisis. * Seizure- MRI is planned for today. Continue Valproate * Respiratory failure- Right Lower lobe infiltrate- continue Zosyn, and Vancomycin. He continues to require Ventilator support. * DM- blood glucose is stable.
--- NOTE | 2016-12-05 07:50 | PRG ---
DATE OF SERVICE: 12/05/2016 A 35 minutes critical care time. SUBJECTIVE: The patient remains intubated on mechanical ventilation. He will awaken when on sedati on, but will not follow commands. EEG yesterday did not demonstrate seizures. OBJECTIVE: VITAL SIGNS: Temperature 98.9, pulse 76, blood pressure 138/71, O2 saturation 100%. A 24-hour inta ke 1521, output 367. HEENT: Unremarkable. NECK: No JVD. LUNGS: Fairly clear. CARDIOVASCULAR: S1, S2 regular. ABDOMEN: Soft, nontender. EXTREMITIES: No edema. He has left below the knee amputation, left upper arm AV fistula. LABORATORY DATA: White blood cell count 19.5, hemoglobin 9.2, hematocrit 28.8, platelet count 184. ABG pending. Sodium 139, potassium 5, chloride 99, CO2 29, BUN 32, creatinine 7.8, glucose 118. X-RAY FINDINGS: Chest x-ray shows a right lower lobe infiltrate. ASSESSMENT: 1. Pneumonia. 2. Acute respiratory failure requiring mechanical ventilation. 3. Status post seizure. 4. Chronic renal failure. PLAN: 1. Await cultures from bronchoscopy done yesterday. 2. MRI of the brain. 3. Keep intubated for the time being given persistent encephalopathy. 4. Initiate enteral tube feedings.
--- NOTE | 2016-12-05 08:42 | RAD ---
CHEST ONE VIEW: History: Intubated. Dyspnea. Follow up. Comparison: 12-04-16 FINDINGS: Cardiac silhouette remains magnified and enlarged. Pulmonary vasculature remains engorged. Patchy in filtrate throughout the right lung is similar in appearance to the prior exam. Lines and tubes are u nchanged in position. physical chemistry professor leads overlie the chest. IMPRESSION: Right lung infiltrate, pulmonary vascular congestion, and other findings appear stable. POS: [facility]
--- NOTE | 2016-12-05 08:49 | PRG ---
DATE OF SERVICE: 12/04/2016 SUBJECTIVE: Mr. Wright is a 41-year-old male who is being admitted with status epilepticus. He shields s not had any seizures over the past 24 hours according to the nurse and the nurse also mentioned th at there are no episodes of myoclonic jerking noted over the past 24 hours. They have been unable t o wean him off the ventilator machine. He becomes extremely agitated when trying to go off sedation and thus he continues to require sedation at this time. PHYSICAL EXAMINATION: VITAL SIGNS: Blood pressure of 144/68, heart rate of 78, temperature of 99.2, respirations of 17 on mechanical ventilation. GENERAL: Intubated and sedated -[place] male in no apparent distress. RESPIRATORY: Clear to auscultation bilaterally. CARDIOVASCULAR: Regular rate and rhythm. NEUROLOGICAL: Mental status: The patient is intubated and sedated. He does not follow any command s. He does grimace to noxious stimuli. Cranial nerves: Pupils are 3 mm and reactive. Positive co ugh and gag reflex. He does breathe over the ventilator machine. Motor exam showed normal tone and bulk. He spontaneously moves both upper extremities and withdraws to pain in both upper extremitie s. LABORATORY DATA AND IMAGING: Reviewed, which included CBC, BMP, Depakote level which is significant for WBC of 19.9, hemoglobin 10.5, hematocrit 33.6, potassium of 5.2, BUN of 37, creatinine of 10.78 , Depakote level of 47.2. EEG was reviewed, which showed moderate generalized slowing without any d ischarges; this is likely secondary to sedation effect. IMPRESSION AND PLAN: 1. Generalized tonic-clonic seizure. 2. End-stage renal disease, dialysis. Mr. Wright is a 41-year-old male who prese nted with multiple seizures that required intubation for airway protection. There has not been any seizure type activity or myoclonic jerking over the past hours. His Depakote level was 47.2. I vesta l increase the dose of Depakote to 750 mg b.i.d. Will recheck the Depakote level in the morning. W e will recover obtaining MRI brain without contrast on morning if possible. Continue supportive car e. No further neurological . Thank you for consultation your consultation.
[2016-12-05] MEDS: Piperacillin/Tazobactam 2.25 GM in Sodium Chloride 0.9% 100 ML IVPB SCH ×3 (09:11→23:15)
[2016-12-05] MEDS: Famotidine/PF 20 mg/2ml Vial SLOW IVP SCH (09:12)
[2016-12-05] MEDS: Heparin 5,000 UNITS/ML VIAL SC SCH ×2 (09:13→20:31)
--- NOTE | 2016-12-05 09:38 | PRG ---
DATE OF SERVICE: 12/05/2016 NEPHROLOGY PROGRESS NOTE SUBJECTIVE: The patient was seen and examined in ICU, intubated and not responding, planned to have MRI today. OBJECTIVE: GENERAL: This is a well-built male, intubated. VITAL SIGNS: Temperature 99, pulse 72, respiratory rate 16, blood pressure 132/70. HEENT: Intubated. CARDIOVASCULAR: S1, S2. Rate and rhythm regular. RESPIRATORY: Clear. GASTROINTESTINAL: Abdomen is soft. MUSCULOSKELETAL: No tenderness, no edema. DERMATOLOGIC: No skin rash. NEUROLOGIC: Intubated. LABORATORY DATA: Potassium is 5.0, BUN is 32, creatinine 7.9. ASSESSMENT AND PLAN: 1. End-stage renal disease. Plan is to have dialysis today and TTS as tolerated. 2. Fluid overload. We will continue dialysis as tolerated. 3. Hypertension, stable. 4. Anemia. We will continue Epogen with dialysis. Overall, prognosis is poor, but plan is to have dialysis, then TTS as tolerated. Follow up with ot er consultants including Neurology.
[2016-12-05] MEDS: Valproate Sodium 750 MG in Sodium Chloride 0.9% 100 ML IVPB SCH ×2 (11:47→20:31)
--- NOTE | 2016-12-05 15:09 | MRI ---
BRAIN MRI NONCOTNRAST: INDICATION: Seizure. COMPARISON: Reference is made to head CT 12/02/16. FINDINGS: Ventricular system is mildly prominent. No midline shift or acute territorial infarction. There is significant patient motion which degrades image quality. Mild-moderate chronic microvascular ische kael disease is advanced for patient's age. Prominent retention cyst formation/mucosal thickening of paranasal sinuses is present, diffusely. There is right mastoid fluid. Central skull base flow vo ids are patent. IMPRESSION: 1. No acute intracranial abnormalities. 2. Advanced for age chronic ischemic disease. Correlate clinically. POS: [facility]
[2016-12-05 15:59] LABS: Vancomycin, Random 10.3 ug/mL (See Comment)
[2016-12-05] MEDS: Lisinopril 20 MG TAB PO SCH (16:03)
[2016-12-05] MEDS: Sodium Chloride 0.9% 1,000 ML IV SCH (17:55)
[2016-12-06] MEDS: Propofol 1,000 MG/100 ML VIAL IV PRN ×5 (04:29→20:06)
[2016-12-06 05:43] LABS: #Eosinphils 0.4 thou/uL (0.0-0.7); #Lymphocytes 0.4 thou/uL (1.20-3.40); #Monocytes 0.7 thou/uL (0.11-0.59); #Neutrophils 12.8 thou/uL (1.40-6.50); %Basophils 0.1 % (0.0-1.0); %Eosinophils 2.6 % (0.0-10.0); %Lymphocytes 2.7 % (21.0-51.0); %Monocytes 4.8 % (0.0-10.0); Hematocrit 29.9 % (42.0-52.0); Mean Platelet Volume 8.4 fL (7.4-10.4); Red Blood Cell (RBC) Count 3.13 mill/uL (4.70-6.10); White Blood Cell (WBC) Count 14.3 thou/uL (4.8-10.8)
[2016-12-06 05:49] LABS: Anion Gap 17 mmol/L (10-20); BUN (Urea Nitrogen) 23 mg/dL (8.9-20.6); Calc. Creatinine Clearance 24 mL/min (70-130); Calcium 8.5 mg/dL (7.8-10.44); Carbon Dioxide 28 mmol/L (22-29); Chloride 99 mmol/L (98-107); Estimated GFR-MDRD 13
--- NOTE | 2016-12-06 07:17 | PRG ---
DATE OF SERVICE: 12/06/2016 Thirty-five minute critical care time. The patient remains intubated on mechanical ventilation. When sedation is turned off, he becomes ag itated to the point he is moving around, but will not follow any commands. PHYSICAL EXAMINATION: VITAL SIGNS: Temperature is 98.9, pulse 91, blood pressure 167/83, 24-hour intake 1375, output 195+ whatever fluid was removed by dialysis. HEENT: His pupils are reactive. Sclerae are anicteric. Oropharynx; endotracheal tube in place. NECK: No JVD. LUNGS: Fairly clear anteriorly. CARDIOVASCULAR: S1 and S2 regular, without murmur. ABDOMEN: Soft, obese, nontender, nondistended. EXTREMITIES: No clubbing, cyanosis, or edema. His chest x-ray demonstrates improvement in the right-sided infiltrate. Endotracheal tube is in goo d position. His culture is growing coag negative Staph in 1 of 2 bottles - one of those was from th e central line put in the ER. ASSESSMENT: 1. Acute respiratory failure requiring mechanical ventilation. 2. Status post generalized tonic clonic seizure. 3. End-stage renal disease requiring hemodialysis. 4. Possibly contaminated central line. PLAN: 1. Replacement of central line. 2. Not weanable at this time secondary to encephalopathy. 3. Continue tube feeds. 4. Prognosis extremely guarded.
--- NOTE | 2016-12-06 07:41 | RAD ---
AP CHEST: History: Daily CCU exam. Comparison: 12-04-16 FINDINGS: ET tube, gastric catheter and right subclavian central venous catheter is similar. Cardiomegaly and pulmonary vascular congestion and central edema pattern is similar. Right costophrenic angle is excl uded. There is suspected tiny left pleural effusion. No pneumothorax is evident. Patchy opacities wi thin the right lung are similar. IMPRESSION: 1. Stable patchy opacities within the right lung suspicious or pneumonia. 2. Persistent changes of CHF. 3. Tubes and lines are stable. POS: [facility]
--- NOTE | 2016-12-06 08:03 | RAD ---
CHEST 1 VIEW: Date: 12/06/16 HISTORY: Line placement. Follow-up. COMPARISON: Earlier exam from same date. FINDINGS: Tip of the endotracheal catheter overlies the thoracic inlet. Nasogastric tube descends to the stoma ch. Tip of a right subclavian central venous catheter projects over the cavoatrial junction. There i s no evidence of pneumothorax. Patchy infiltrate at the right lung base is stable. monitor and storage bin tender l angelia overlie the chest. IMPRESSION: Lines and tubes are as detailed above. Stable radiographic appearance of the chest. POS: [facility]
[2016-12-06 08:09] LABS: Mechanical Tidal Volume 500 ml; Mode SIMV.PSV; Modified Allen's Test POSITIVE; Oxyhemoglobin 95.3 % (94.0-97.0); Pressure Support 10 cmH2O; Sodium 141 mmol/L (135-148); Vent YES
--- NOTE | 2016-12-06 08:09 | OP ---
DATE OF PROCEDURE: 12/06/2016 SURGEON: Dr. Jose G Person PROCEDURE: Central line placement. PREOPERATIVE DIAGNOSIS: Infected previous central line. POSTOPERATIVE DIAGNOSIS: Replacement of central line over a guidewire. ANESTHESIA: 1% lidocaine without epinephrine. DESCRIPTION OF PROCEDURE: Initially I attempted to put a right IJ central line in; however, the ves deb could not be visualized well by ultrasound. It could not be cannulated with a needle. Therefor e I elected to do a guidewire exchange on the right subclavian catheter using sterile technique afte r chlorhexidine prep. The line was exchanged without difficulty. Three ports flushed venous blood.
[2016-12-06 08:27] LABS: Vancomycin, Random 15.9 ug/mL (See Comment)
[2016-12-06] MEDS: Piperacillin/Tazobactam 2.25 GM in Sodium Chloride 0.9% 100 ML IVPB SCH (08:53)
[2016-12-06] MEDS: Famotidine/PF 20 mg/2ml Vial SLOW IVP SCH (08:54)
[2016-12-06] MEDS: Heparin 5,000 UNITS/ML VIAL SC SCH ×2 (08:55→20:07)
[2016-12-06] MEDS: Lisinopril 20 MG TAB PO SCH (08:55)
[2016-12-06] MEDS: Valproate Sodium 750 MG in Sodium Chloride 0.9% 100 ML IVPB SCH (08:56)
--- NOTE | 2016-12-06 10:00 | PQF ---
CLINICAL DOCUMENTATION IMPROVEMENT CLARIFICATION FORM: ICD-10 Updated PLEASE DO AN ADDENDUM TO THE PROGRESS NOTE WITH ANY DOCUMENTATION UPDATES OR ADDITIONS AND CARRY THROUGH TO DC SUMMARY. THANK YOU. DATE: 12/06 ATTN: DR. MARYAM HUNTER Please exercise your independent, professional judgment in responding to the clarification form. Clinical indicators are provided on the bottom of this form for your review Please check appropriate box(s): [ ] Aspiration Pneumonia [ ] Ventilator Associated Pneumonia [ ] Empirically treating Gram Negative Pneumonia [ ] Empirically treating Anaerobic Pneumonia [ ] Pneumonia secondary to (specify organism / underlying disease) [ ] Bronchopneumonia [ ] Pneumonia of unknown etiology [ ] Other diagnosis [ ] Unable to determine In addition, please specify: Present on Admission (POA): [ ] Yes [ ] No [ ] Unable to determine For continuity of documentation, please document condition throughout progress notes and discharge summary. Thank You. CLINICAL INDICATORS - SIGNS / SYMPTOMS / LABS ATTENDING PN 12/04 & 3: PATIENT HAS BEEN FOUND TO HAVE A R LUNG INFILTRATE - ANTIBIOTICS BROADENED TO VANCOMYCIN & ZOSYN PULMONOLOGY PN 12/04: ASSESSMENT - 2. FEVER, HAS NEW RLL INFILTRATE ON X-RAY PULMONOLOGY PN 12/05: ASSESSMENT - 1. PNEUMONIA CXR 12/04: WORSENING INFILTRATE THROUGHOUT R LUNG CXR 12/05: RIGHT LUNG INFILTRATE T: 100.0 - 103.1 (12/03 - 12/04) WBC: 10.3 - 19.9 (12/02 - 12/04) RISK FACTORS: S/P GENERALIZED TONIC-CLONIC SEIZURE REQUIRING INTUBATION ON VENTILATOR >96 HRS ENCEPHALOPATHY TREATMENTS: IV ANTIBIOTICS (ZOSYN & VANCOMYCIN (12/04 - PRESENT) SERIAL CXR PULMONOLOGY CONSULT RESPIRATORY TREATMENTS THANK YOU! Tiera Addressed in Progress note 12/06/2016 (This form is maintained as a part of the permanent medical record) 2014 [employer]. All Rights Reserved Tiera Marrero RN, BSN [email or web address] Office: [phone] [facility]
--- NOTE | 2016-12-06 11:03 | PDOC.PN ---
- Subjective Encounter Start Date: 12/06/16 Encounter Start Time: 09:30 -: non-verbal Pt seen and examined, chart reviewed in its entrety. Pt is intubated, sedated and nonverbal. This is my first visit with this patient. No F/C, no n/V/D/C, no acute events overnight. ROS not obtainable - Objective Resuscitation Status: full MAR Reviewed: Yes Vital Signs & Weight: Vital Signs (12 hours) Temp Pulse Resp BP Pulse Ox 12/06/16 08:55 145/58 H 12/06/16 08:54 85 145/58 H 12/06/16 08:00 12 12/06/16 07:54 85 145/58 H 12/06/16 07:47 81 14 99 12/06/16 07:00 99.8 F H 12/06/16 06:00 18 12/06/16 04:00 18 12/06/16 03:00 98.9 F 12/06/16 02:29 91 162/72 H 12/06/16 02:00 21 H 12/06/16 00:15 79 13 100 12/06/16 00:00 100 F H 14 Weight Admit Weight 232 lb 2.348 oz Weight 221 lb 9.033 oz Most Recent Monitor Data Heart Rate from ECG 80 NIBP 145/58 NIBP BP-Mean 100 Respiration from ECG 18 SpO2 100 I&O: 12/05/16 12/06/16 12/07/16 06:59 06:59 06:59 Intake Total 1521 2329 Output Total 367 200 0 Balance 1154 2129 0 Result Diagrams: 12/06/16 05:00 12/06/16 05:00 Additional Labs: Accuchecks 12/06/16 12/05/16 12/05/16 00:24 18:29 12:25 POC Glucose 73 75 98 Radiology Reviewed by me: Yes EKG Reviewed by me: Yes Phys Exam - Physical Examination Constitutional: NAD HEENT: PERRLA, moist MMs, sclera anicteric, oral pharynx no lesions Neck: no nodes, no JVD, supple, full ROM Respiratory: no wheezing, no rhonchi R>L rales Cardiovascular: RRR, no significant murmur, no rub Gastrointestinal: soft, non-tender, no distention, positive bowel sounds Musculoskeletal: pulses present, edema present Neurological: non-focal, normal sensation, moves all 4 limbs Lymphatic: no nodes Skin: no rash, normal turgor, cap refill <2 seconds Dx/Plan (1) Pneumonia involving right lung Code(s): J18.9 - PNEUMONIA, UNSPECIFIED ORGANISM Status: Acute Qualifiers: Pneumonia type: due to unspecified organism Lung location: middle lobe of lung Qualified Code(s): J18.1 - Lobar pneumonia, unspecified organism Comment: right fletcher infiltrate, represents bacterial pneumonia, atypical versus aspiration. On Vanc/Zosyn, will streamline abx. Not MRSA. I believe Levoflox and clinda will better cover. (2) Acute respiratory failure Code(s): J96.00 - ACUTE RESPIRATORY FAILURE, UNSP W HYPOXIA OR HYPERCAPNIA Status: Acute Qualifiers: Respiratory failure complication: hypoxia Qualified Code(s): J96.01 - Acute respiratory failure with hypoxia Comment: secondary to seizures (3) Seizure Code(s): R56.9 - UNSPECIFIED CONVULSIONS Status: Acute Comment: neuro following. Aniepilleptics increase. No noted seizure activity in lst 24 hours (4) Diabetes mellitus type 2 Code(s): E11.9 - TYPE 2 DIABETES MELLITUS WITHOUT COMPLICATIONS Status: Chronic (5) End stage renal failure on dialysis Code(s): N18.6 - END STAGE RENAL DISEASE; Z99.2 - DEPENDENCE ON RENAL DIALYSIS Status: Chronic (6) HLD (hyperlipidemia) Code(s): E78.5 - HYPERLIPIDEMIA, UNSPECIFIED Status: Chronic Qualifiers: Hyperlipidemia type: unspecified Qualified Code(s): E78.5 - Hyperlipidemia , unspecified (7) Malignant hypertension Code(s): I10 - ESSENTIAL (PRIMARY) HYPERTENSION Status: Chronic - Plan cont current plan of care, continue antibiotics, PT/OT, respiratory therapy * .
[2016-12-06] MEDS: Clindamycin/D5W 900 MG in Premix Bag 1 BAG IVPB SCH ×2 (14:10→21:26)
[2016-12-06] MEDS: Sodium Chloride 0.9% 1,000 ML IV SCH (20:05)
--- NOTE | 2016-12-06 20:11 | PRG ---
DATE OF SERVICE: 12/06/2016 SUBJECTIVE: The patient was seen and examined in ICU, intubated and not responding very well. Had dialysis today, tolerated well. Blood pressure is stable. OBJECTIVE: GENERAL: This is a well-built male in no apparent distress. VITAL SIGNS: Temperature 98.8. Pulse 85. Respiratory rate 16. Blood pressure 147/81. HEENT: Intubated. NECK: Supple. CARDIOVASCULAR: S1, S2 heard. Rate and rhythm regular. RESPIRATORY: Clear to auscultation. GASTROINTESTINAL: Abdomen is soft. MUSCULOSKELETAL: No tenderness. No edema. DERMATOLOGIC: No skin rash. NEUROLOGIC: Intubated. PSYCHIATRIC: Mood and affect normal. LABORATORY DATA: Potassium 4.3, BUN 23, creatinine 5.7. ASSESSMENT AND PLAN: 1. End-stage renal disease. We will continue on dialysis Sunday, , and Sunday as tolera pasquale. 2. Fluid overload. Continue to remove fluid with dialysis. 3. Hypertension, stable. 4. Edema, controlled. 5. Anemia. We will continue Epogen with dialysis. Plan is to continue on dialysis as tolerated.
[2016-12-07] MEDS: Propofol 1,000 MG/100 ML VIAL IV PRN ×3 (01:56→09:54)
[2016-12-07] MEDS: Clindamycin/D5W 900 MG in Premix Bag 1 BAG IVPB SCH ×3 (05:17→21:02)
[2016-12-07 05:36] LABS: #Basophils 0.1 thou/uL (0.0-0.2); #Eosinphils 0.4 thou/uL (0.0-0.7); #Lymphocytes 0.7 thou/uL (1.20-3.40); #Monocytes 0.7 thou/uL (0.11-0.59); #Neutrophils 8.7 thou/uL (1.40-6.50); %Basophils 0.5 % (0.0-1.0); %Lymphocytes 6.3 % (21.0-51.0); Hematocrit 29.2 % (42.0-52.0); Mean Platelet Volume 8.2 fL (7.4-10.4); Red Blood Cell (RBC) Count 3.11 mill/uL (4.70-6.10); White Blood Cell (WBC) Count 10.5 thou/uL (4.8-10.8)
[2016-12-07 05:56] LABS: Anion Gap 18 mmol/L (10-20); BUN (Urea Nitrogen) 35 mg/dL (8.9-20.6); Calc. Creatinine Clearance 19 mL/min (70-130); Calcium 8.6 mg/dL (7.8-10.44); Carbon Dioxide 26 mmol/L (22-29); Chloride 98 mmol/L (98-107); Estimated GFR-MDRD 10
[2016-12-07] MEDS ORDERED: Sodium Chloride 0.9% 250 ML 200 ML IVPB PRN (07:10)
--- NOTE | 2016-12-07 07:48 | PRG ---
DATE OF SERVICE: 12/07/2016 Thirty-five minutes critical care time. Mr. Wright remains intubated on mechanical ventilation. He is starting to wake up and track with h is eyes. Unfortunately, I could not fully discontinue sedation this morning because he is about to undergo dialysis. PHYSICAL EXAMINATION: VITAL SIGNS: Temperature is 99.0, pulse 90, blood pressure 146/68, 24 intake 2565, output 244. Agus ght 225 pounds. HEENT: Pupils react. Sclerae are anicteric. Oropharynx, endotracheal tube in place. NECK: No JVD. LUNGS: Fairly clear anteriorly. CARDIOVASCULAR: S1, S2 regular. ABDOMEN: Soft, nontender. EXTREMITIES: No edema. He has a left [id number] amputation. LABORATORY DATA: White blood cell count 10.5, hemoglobin 9.2, hematocrit 29.2, platelet count 230. ABG; pH 7.42, pCO2 of 40, pO2 76 on SIMV rate 12, tidal volume 500, PEEP 5, pressure 10, FiO2 25%. Sodium 138, potassium 4.3, chloride 98, CO2 26, BUN 35, creatinine 7.3, glucose 81. Chest x-ray sh ows clearing of the right-sided infiltrate. ASSESSMENT: 1. Status post seizure, likely related to cocaine abuse. 2. Acute respiratory failure requiring mechanical ventilation. 3. Chronic renal failure requiring hemodialysis. 4. Possibly contaminated central line at the time of admission. 5. Aspiration pneumonia. PLAN: 1. After dialysis his sedation will be stopped and he will be evaluated for the prospect of extubat ion. 2. Antibiotics have been changed to Levaquin and clindamycin since MRSA is not involved in this shelton e. 3. Continue seizure medications per Neurology.
--- NOTE | 2016-12-07 08:11 | RAD ---
PORTABLE CHEST 1 VIEW: DATE: 12/07/16. TIME: 4:16 a.m. HISTORY: Respiratory failure. FINDINGS: No significant interval change is seen since the previous day's exam. POS: [facility]
[2016-12-07 09:26] LABS: Sodium 141 mmol/L (135-148)
[2016-12-07 09:27] LABS: Mechanical Tidal Volume 500 ml; Mode SIMV/PSV; Pressure Support 10 cmH2O; Vent YES
--- NOTE | 2016-12-07 10:34 | PDOC.PN ---
- Subjective Encounter Start Date: 12/07/16 Encounter Start Time: 10:32 Subjective: nonverbal - Objective MAR Reviewed: Yes Vital Signs & Weight: Vital Signs (12 hours) Temp Pulse Resp BP Pulse Ox 12/07/16 10:00 14 12/07/16 09:21 87 126/64 12/07/16 08:00 99.9 F H 89 16 100 12/07/16 07:24 85 144/56 H 12/07/16 07:00 99.9 F H 12/07/16 06:00 14 12/07/16 05:34 90 184/84 H 12/07/16 04:00 99.0 F 15 12/07/16 02:29 82 128/50 L 100 12/07/16 02:00 16 12/07/16 00:27 82 12 100 12/07/16 00:00 99.6 F 17 12/06/16 22:35 90 138/62 Weight Admit Weight 232 lb 2.348 oz Weight 225 lb 4.999 oz Most Recent Monitor Data Heart Rate from ECG 85 NIBP 135/70 NIBP BP-Mean 92 Respiration from ECG 20 SpO2 100 I&O: 12/06/16 12/07/16 12/08/16 06:59 06:59 06:59 Intake Total 2329 2565 Output Total 200 244 0 Balance 2129 2321 0 Result Diagrams: 12/07/16 05:15 12/07/16 05:15 Additional Labs: Accuchecks 12/07/16 12/06/16 12/06/16 00:03 18:25 12:50 POC Glucose 79 79 80 Phys Exam - Physical Examination Constitutional: NAD Neck: no JVD coarse BS, no focal findings Cardiovascular: RRR, no significant murmur Gastrointestinal: soft, non-tender, no distention, positive bowel sounds Musculoskeletal: no edema Dx/Plan (1) Polysubstance abuse Code(s): F19.10 - OTHER PSYCHOACTIVE SUBSTANCE ABUSE, UNCOMPLICATED Status: Acute (2) Acute respiratory failure Code(s): J96.00 - ACUTE RESPIRATORY FAILURE, UNSP W HYPOXIA OR HYPERCAPNIA Status: Acute Qualifiers: Respiratory failure complication: hypoxia Qualified Code(s): J96.01 - Acute respiratory failure with hypoxia Comment: secondary to seizures (3) Pneumonia involving right lung Code(s): J18.9 - PNEUMONIA, UNSPECIFIED ORGANISM Status: Acute Qualifiers: Pneumonia type: due to unspecified organism Lung location: middle lobe of lung Qualified Code(s): J18.1 - Lobar pneumonia, unspecified organism Comment: right fletcher infiltrate, represents bacterial pneumonia, atypical versus aspiration. On Vanc/Zosyn, will streamline abx. Not MRSA. I believe Levoflox and clinda will better cover. (4) Seizure Code(s): R56.9 - UNSPECIFIED CONVULSIONS Status: Acute Comment: neuro following. Aniepilleptics increase. No noted seizure activity in lst 24 hours (5) Diabetes mellitus type 2 Code(s): E11.9 - TYPE 2 DIABETES MELLITUS WITHOUT COMPLICATIONS Status: Chronic (6) End stage renal failure on dialysis Code(s): N18.6 - END STAGE RENAL DISEASE; Z99.2 - DEPENDENCE ON RENAL DIALYSIS Status: Chronic (7) HLD (hyperlipidemia) Code(s): E78.5 - HYPERLIPIDEMIA, UNSPECIFIED Status: Chronic Qualifiers: Hyperlipidemia type: unspecified Qualified Code(s): E78.5 - Hyperlipidemia , unspecified (8) Malignant hypertension Code(s): I10 - ESSENTIAL (PRIMARY) HYPERTENSION Status: Chronic (9) Noncompliance with medication regimen Code(s): Z91.14 - PATIENT'S OTHER NONCOMPLIANCE WITH MEDICATION REGIMEN Status : Chronic - Plan cont HD, vent depent, on enteral nutrition -: cont iv antibx -: cont FRAN, bblocker per tube * .
[2016-12-07] MEDS ORDERED: Metoprolol Tartrate 25 MG TAB PO SCH (11:45)
--- NOTE | 2016-12-07 12:27 | PRG ---
DATE OF SERVICE: 12/07/2016 SUBJECTIVE: The patient was seen and examined during dialysis, ICU, remains intubated. PHYSICAL EXAMINATION: GENERAL: A well-built male in no apparent distress. VITAL SIGNS: Temperature 99.9, pulse 85, respiratory rate 18, blood pressure 135/70. HEENT: Intubated. CARDIOVASCULAR: S1, S2 heard. Rate and rhythm regular. RESPIRATORY: Clear. GASTROINTESTINAL: Abdomen is soft. MUSCULOSKELETAL: . DERMATOLOGIC: No skin rash. NEUROLOGIC: Intubated and sedated. LABORATORY DATA: Potassium is 4.3, BUN is 35, creatinine is 7.3. ASSESSMENT AND PLAN: 1. End-stage renal disease. The patient was evaluated at dialysis, tolerating well, we will contin ue on dialysis Sunday, , and Sunday, fluid overload, better. 2. Edema, controlled. 3. Hypertension. We will remove fluid. 4. Anemia. Continue ALBERT. Continue dialysis, TTS as tolerated.
[2016-12-07] MEDS: Famotidine 20 MG TAB PO SCH (13:06)
[2016-12-07] MEDS: Heparin 5,000 UNITS/ML VIAL SC SCH ×2 (13:07→19:39)
[2016-12-07] MEDS: Valproate Sodium 250 mg/5 ml UD Cup PO SCH ×2 (13:08→19:39)
[2016-12-07] MEDS: Lisinopril 20 MG TAB PO SCH (13:08)
[2016-12-07] MEDS ORDERED: DC Sedation Protocol FS ONE (14:23)
[2016-12-07] MEDS: Sodium Chloride 0.9% 1,000 ML IV SCH (17:50)
[2016-12-07] MEDS: Metoprolol Tartrate 25 MG TAB PO SCH (19:39)
[2016-12-08] MEDS: Acetaminophen 650 MG/20.3 ML UDCUP PER TUBE PRN (02:43)
[2016-12-08 04:17] LABS: #Eosinphils 0.3 thou/uL (0.0-0.7); #Lymphocytes 0.9 thou/uL (1.20-3.40); #Neutrophils 8.6 thou/uL (1.40-6.50); %Basophils 0.1 % (0.0-1.0); %Eosinophils 3.2 % (0.0-10.0); %Lymphocytes 8.3 % (21.0-51.0); %Monocytes 8.9 % (0.0-10.0); Hematocrit 30.4 % (42.0-52.0); Mean Platelet Volume 7.8 fL (7.4-10.4); Red Blood Cell (RBC) Count 3.25 mill/uL (4.70-6.10); White Blood Cell (WBC) Count 10.8 thou/uL (4.8-10.8)
[2016-12-08 04:54] LABS: Anion Gap 16 mmol/L (10-20); BUN (Urea Nitrogen) 24 mg/dL (8.9-20.6); Calc. Creatinine Clearance 24 mL/min (70-130); Calcium 8.9 mg/dL (7.8-10.44); Carbon Dioxide 30 mmol/L (22-29); Chloride 99 mmol/L (98-107); Estimated GFR-MDRD 13
[2016-12-08] MEDS: Clindamycin/D5W 900 MG in Premix Bag 1 BAG IVPB SCH ×3 (05:02→21:05)
--- NOTE | 2016-12-08 08:18 | PRG ---
DATE OF SERVICE: 12/08/2016 Mr. Wright was extubated yesterday afternoon. He is slowly coming back around mentally. He is mac ented to place, but not to time or to current events. PHYSICAL EXAMINATION: VITAL SIGNS: Temperature is 98.9, pulse 85, blood pressure 137/65. 24 hour intake 1215, output 320 0 through dialysis. HEENT: Sclerae are anicteric. Oropharynx clear. NECK: No JVD. CHEST: Clear to auscultation without wheezing. CARDIAC: S1 and S2 regular. ABDOMEN: Soft, obese, nontender. EXTREMITIES: He has a left [id number] amputation. LABORATORY DATA: White blood cell count 10.8, hemoglobin 9.9, hematocrit 30.4, platelet count 218. Sodium 141, potassium 3.6, chloride 99, CO2 30, BUN 24, creatinine 5.6, glucose 101. His chest x-ray is fairly clear. Cultures show no further growth to date. ASSESSMENT: 1. Encephalopathy, which is slowly improving. 2. Post-seizure likely related to cocaine abuse. 3. Acute respiratory failure requiring mechanical ventilation - now resolved. 4. Chronic renal failure requiring hemodialysis. 5. Possibly contaminated central line time at the time of admission which now has been changed out. 6. Aspiration pneumonia, which is clearing. PLAN: 1. I would like to leave him in the ICU today to allow his sensorium to clear more before sending h im to the floor. 2. Initiate physical therapy. 3. Initiate diet.
--- NOTE | 2016-12-08 09:00 | PRG ---
DATE OF SERVICE: 12/08/2016 SUBJECTIVE: Patient was seen and examined at bedside and overnight events noted. Patient denies an y shortness of breath or chest pain or palpitation. No history of nausea or vomiting or diarrhea or fever or chills or cramps. OBJECTIVE: GENERAL: This is a well-built male in no apparent distress VITAL SIGNS: Temperature 98.3, pulse 92, respiratory rate 18, blood pressure 172/84. HEENT: Atraumatic, normocephalic. Oral mucosa is moist. NECK: Supple. CARDIOVASCULAR: S1 and S2 heard, rate and rhythm regular. RESPIRATORY: Clear to auscultation. GASTROINTESTINAL: Abdomen is soft. MUSCULOSKELETAL: No tenderness, no edema. DERMATOLOGIC: No skin rash. NEUROLOGIC: Alert and awake and oriented X3. No focal neurologic deficits. Moving all the extremi ties. PSYCHIATRIC: Mood and affect normal. LABORATORY DATA: Potassium 3.6, BUN is 74, creatinine is 5.6. ASSESSMENT AND PLAN: 1. End-stage renal disease. Continue on dialysis, Sunday, , and Sunday as tolerated. 2. Edema, controlled 3. Hypertension. 4. Anemia. Continue on dialysis, Sunday, , and Sunday as tolerated. We will follow.
[2016-12-08] MEDS: Lisinopril 20 MG TAB PO SCH (09:32)
[2016-12-08] MEDS: Heparin 5,000 UNITS/ML VIAL SC SCH ×2 (09:33→20:37)
[2016-12-08] MEDS: Famotidine 20 MG TAB PO SCH (09:33)
[2016-12-08] MEDS: Metoprolol Tartrate 25 MG TAB PO SCH ×2 (09:33→20:38)
[2016-12-08] MEDS: Valproate Sodium 250 mg/5 ml UD Cup PO SCH ×2 (09:33→20:38)
--- NOTE | 2016-12-08 10:20 | RAD ---
AP VIEW CHEST: 12/08/2016 HISTORY: Ventilator dependent patient. COMPARISON: 12/07/2016 FINDINGS: AP view chest demonstrates a right subclavian central line in place. Nasogastric and endotracheal t ubes have been removed. Mild cardiomegaly is seen. Pulmonary vascular congestion is seen. No evid ence of effusions, pneumonia, or pneumothorax is seen. IMPRESSION: 1. Cardiomegaly. 2. Pulmonary vascular congestion. POS: [facility]
[2016-12-08 13:48] VITALS: BMI 28.5
[2016-12-08] MEDS ORDERED: Succinylcholine Chloride 20 MG/ML 10 ml SYRINGE FS ONE (14:48)
--- NOTE | 2016-12-08 16:32 | PDOC.PN ---
- Subjective Encounter Start Date: 12/08/16 Encounter Start Time: 11:55 Subjective: pt was extubated yesterday -: is awkae, still drowsy, no seizures -: pleitez in place - Objective Vital Signs & Weight: Vital Signs (12 hours) Temp Pulse Pulse Pulse Resp BP BP 12/08/16 16:00 98.6 F 12/08/16 13:48 90 95 144/69 H 12/08/16 12:00 98.4 F 12/08/16 09:33 92 141/67 H 12/08/16 09:32 141/67 H 12/08/16 08:50 12/08/16 08:00 98.3 F 92 22 H 12/08/16 07:00 98.3 F BP Pulse Ox 12/08/16 16:00 12/08/16 13:48 173/87 H 12/08/16 12:00 12/08/16 09:33 12/08/16 09:32 12/08/16 08:50 93 L 12/08/16 08:00 98 12/08/16 07:00 Weight Admit Weight 232 lb 2.348 oz Weight 222 lb 6.4 oz Most Recent Monitor Data Heart Rate from ECG 87 NIBP 154/81 NIBP BP-Mean 106 Respiration from ECG 10 SpO2 100 I&O: 12/07/16 12/08/16 12/09/16 06:59 06:59 06:59 Intake Total 2565 1215 680 Output Total 244 327 65 Balance 2321 888 615 Result Diagrams: 12/08/16 04:00 12/08/16 04:00 Additional Labs: Accuchecks 12/08/16 12/08/16 12/07/16 11:58 05:22 22:59 POC Glucose 98 86 92 12/07/16 18:07 POC Glucose 78 Phys Exam - Physical Examination Neck: no JVD diminished BS at bases Cardiovascular: RRR, no significant murmur, no rub Gastrointestinal: soft, non-tender, no distention Musculoskeletal: no edema, pulses present Neurological: non-focal, normal sensation Psychiatric: A&O x 3 Skin: no rash Dx/Plan (1) Acute respiratory failure Code(s): J96.00 - ACUTE RESPIRATORY FAILURE, UNSP W HYPOXIA OR HYPERCAPNIA Status: Acute Qualifiers: Respiratory failure complication: hypoxia Qualified Code(s): J96.01 - Acute respiratory failure with hypoxia Comment: secondary to seizures (2) Pneumonia involving right lung Code(s): J18.9 - PNEUMONIA, UNSPECIFIED ORGANISM Status: Acute Qualifiers: Pneumonia type: due to unspecified organism Lung location: middle lobe of lung Qualified Code(s): J18.1 - Lobar pneumonia, unspecified organism Comment: right fletcher infiltrate, represents bacterial pneumonia, atypical versus aspiration. On Vanc/Zosyn, will streamline abx. Not MRSA. I believe Levoflox and clinda will better cover. (3) Polysubstance abuse Code(s): F19.10 - OTHER PSYCHOACTIVE SUBSTANCE ABUSE, UNCOMPLICATED Status: Acute (4) Seizure Code(s): R56.9 - UNSPECIFIED CONVULSIONS Status: Acute Comment: neuro following. Aniepilleptics increase. No noted seizure activity in lst 24 hours (5) Diabetes mellitus type 2 Code(s): E11.9 - TYPE 2 DIABETES MELLITUS WITHOUT COMPLICATIONS Status: Chronic (6) End stage renal failure on dialysis Code(s): N18.6 - END STAGE RENAL DISEASE; Z99.2 - DEPENDENCE ON RENAL DIALYSIS Status: Chronic (7) Malignant hypertension Code(s): I10 - ESSENTIAL (PRIMARY) HYPERTENSION Status: Chronic (8) Noncompliance with medication regimen Code(s): Z91.14 - PATIENT'S OTHER NONCOMPLIANCE WITH MEDICATION REGIMEN Status : Chronic - Plan * . pt is improving. will continue with current care . transfer to tele when ok with pulmo. HD pe renal. monitor BP. will f/u on urology recomm regarding removal of pleitez.
[2016-12-08] MEDS: Sodium Chloride 0.9% 1,000 ML IV SCH (17:21)
[2016-12-09 04:46] LABS: Anion Gap 18 mmol/L (10-20); BUN (Urea Nitrogen) 31 mg/dL (8.9-20.6); Calc. Creatinine Clearance 19 mL/min (70-130); Calcium 9.1 mg/dL (7.8-10.44); Carbon Dioxide 28 mmol/L (22-29); Chloride 99 mmol/L (98-107); Estimated GFR-MDRD 10
[2016-12-09] MEDS: Clindamycin/D5W 900 MG in Premix Bag 1 BAG IVPB SCH ×2 (05:33→15:04)
[2016-12-09] MEDS: Heparin 5,000 UNITS/ML VIAL SC SCH ×2 (08:38→21:46)
[2016-12-09] MEDS: Famotidine 20 MG TAB PO SCH (08:38)
[2016-12-09] MEDS: Metoprolol Tartrate 25 MG TAB PO SCH (08:38)
[2016-12-09] MEDS: Valproate Sodium 250 mg/5 ml UD Cup PO SCH ×2 (08:38→21:46)
[2016-12-09] MEDS: Lisinopril 20 MG TAB PO SCH ×2 (08:39→21:46)
[2016-12-09 10:42] LABS: #Eosinphils 0.3 thou/uL (0.0-0.7); #Lymphocytes 1.1 thou/uL (1.20-3.40); #Monocytes 1.4 thou/uL (0.11-0.59); #Neutrophils 9.7 thou/uL (1.40-6.50); %Basophils 0.2 % (0.0-1.0); %Eosinophils 2.8 % (0.0-10.0); %Monocytes 11.1 % (0.0-10.0); Hematocrit 34.2 % (42.0-52.0); Mean Platelet Volume 8.1 fL (7.4-10.4); Red Blood Cell (RBC) Count 3.69 mill/uL (4.70-6.10); White Blood Cell (WBC) Count 12.6 thou/uL (4.8-10.8)
[2016-12-09 11:02] LABS: Anion Gap 18 mmol/L (10-20); BUN (Urea Nitrogen) 18 mg/dL (8.9-20.6); Calc. Creatinine Clearance 28 mL/min (70-130); Calcium 9.5 mg/dL (7.8-10.44); Carbon Dioxide 26 mmol/L (22-29); Chloride 99 mmol/L (98-107); Estimated GFR-MDRD 16
--- NOTE | 2016-12-09 11:25 | PRG ---
DATE OF SERVICE: 12/09/2016 SUBJECTIVE: This is a 41-year-old gentleman being seen for end-stage renal disease. Patient denies any nausea, vomiting or chest pain. PHYSICAL EXAMINATION: GENERAL: Patient is awake, alert. VITAL SIGNS: Afebrile, pulse 86, breathing at 16, blood pressure 153/56. GENERAL APPEARANCE AND MENTAL STATUS: Fair. HEAD/NECK: Normocephalic. Atraumatic. EYES: EOMI. No deformity. EARS: Clear. No ulcers. NOSE: Intact. No lesions. MOUTH: Clear. No discharge. THROAT: Clear. No exudate. LUNGS: Clear. No crackles. CARDIAC: S1, S2. No rub. ABDOMEN: Benign. BS+. GENITALIA/RECTUM: Plascencia absent. BACK/EXTREMITIES: Edema 0+ Ulcer- NEUROLOGICAL: Alert and motor intact. SKIN: Rash- Bruise- LYMPHATICS: Edema- Ulcer- LABORATORY DATA: Show hemoglobin 11.2. ASSESSMENT AND PLAN: 1. Stage 6 chronic kidney disease. We will plan dialysis today. 2. Hypertension, stable. 3. Anemia, stable. 4. Medications based on glomerular filtration rate are appropriate.
--- NOTE | 2016-12-09 11:49 | EKG ---
Test Reason : AMS Blood Pressure : / mmHG Vent. Rate : 090 BPM Atrial Rate : 090 BPM P-R Int : 190 ms QRS Dur : 098 ms QT Int : 420 ms P-R-T Axes : 071 005 078 degrees QTc Int : 513 ms Normal sinus rhythm Possible Left atrial enlargement Prolonged QT Abnormal ECG Confirmed by ROSEMARY ZHOU, ROSI Owen ([id number]), art editor MILEY LOPEZ ([id number]) on 12/09/2016 11:48:57 AM Referred By: Confirmed By:ROSI RILEY MD
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
[2016-12-09] MEDS: Metoprolol Tartrate 50 MG TAB PO SCH (21:46)
[2016-12-09] MEDS: Labetalol HCl 100 MG/20 ML VIAL SLOW IVP PRN (21:59)
[2016-12-10 06:56] LABS: Anion Gap 20 mmol/L (10-20); BUN (Urea Nitrogen) 32 mg/dL (8.9-20.6); Calc. Creatinine Clearance 20 mL/min (70-130); Calcium 9.4 mg/dL (7.8-10.44); Carbon Dioxide 24 mmol/L (22-29); Chloride 100 mmol/L (98-107); Estimated GFR-MDRD 11
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
[2016-12-10] MEDS ORDERED: Sodium Chloride 0.9% 10 ML ONE (07:57)
[2016-12-10] MEDS: Famotidine 20 MG TAB PO SCH (08:08)
[2016-12-10] MEDS: Lisinopril 20 MG TAB PO SCH ×2 (08:08→22:28)
[2016-12-10] MEDS: Metoprolol Tartrate 50 MG TAB PO SCH ×2 (08:09→22:28)
[2016-12-10] MEDS: Heparin 5,000 UNITS/ML VIAL SC SCH ×2 (08:12→22:29)
[2016-12-10] MEDS: Valproate Sodium 250 mg/5 ml UD Cup PO SCH ×2 (08:14→22:28)
[2016-12-10 08:27] LABS: Anion Gap 20 mmol/L (10-20); BUN (Urea Nitrogen) 32 mg/dL (8.9-20.6); Calc. Creatinine Clearance 20 mL/min (70-130); Calcium 9.4 mg/dL (7.8-10.44); Carbon Dioxide 27 mmol/L (22-29); Chloride 98 mmol/L (98-107); Estimated GFR-MDRD 10
[2016-12-10 08:31] LABS: #Basophils 0.1 thou/uL (0.0-0.2); #Eosinphils 0.3 thou/uL (0.0-0.7); #Monocytes 1.3 thou/uL (0.11-0.59); #Neutrophils 8.8 thou/uL (1.40-6.50); %Basophils 0.9 % (0.0-1.0); %Eosinophils 2.7 % (0.0-10.0); %Lymphocytes 8.4 % (21.0-51.0); %Monocytes 11.6 % (0.0-10.0); Hematocrit 38.1 % (42.0-52.0); Mean Platelet Volume 8.4 fL (7.4-10.4); White Blood Cell (WBC) Count 11.5 thou/uL (4.8-10.8)
--- NOTE | 2016-12-10 11:34 | PRG ---
DATE OF SERVICE: 12/10/2016 SUBJECTIVE: This is a 41-year-old gentleman being seen for end-stage renal disease. Patient denies any nausea, vomiting or chest pain. PHYSICAL EXAMINATION: GENERAL: Patient is awake, alert. VITAL SIGNS: Afebrile, pulse 84, breathing at 16, blood pressure 161/85. HEAD/NECK: Normocephalic. Atraumatic. EYES: EOMI. No deformity. EARS: Clear. No ulcers. NOSE: Intact. No lesions. MOUTH: Clear. No discharge. THROAT: Clear. No exudate. LUNGS: Clear. No crackles. CARDIAC: S1, S2. No rub. ABDOMEN: Benign. BS+. GENITALIA/RECTUM: Plascencia absent. BACK/EXTREMITIES: Edema 0+ Ulcer-. NEUROLOGICAL: Alert and motor intact. SKIN: Rash- Bruise- LYMPHATICS: Edema- Ulcer-. LABORATORY DATA: Show hemoglobin 12.1, potassium 3.7. ASSESSMENT AND RECOMMENDATIONS: 1. Stage 6 chronic kidney disease, stable. 2. Hypertension, stable. 3. Anemia, stable. 4. Congestive heart failure, stable. 5. Medications based on GFR are appropriate.
--- NOTE | 2016-12-10 12:17 | PDOC.PN ---
- Subjective Encounter Start Date: 12/10/16 Encounter Start Time: 11:45 Subjective: pt lying comfortably in bed. - Objective Vital Signs & Weight: Vital Signs (12 hours) Temp Pulse Resp BP BP BP Pulse Ox 12/10/16 09:05 161/85 H 12/10/16 08:11 84 191/96 H 12/10/16 08:09 84 191/96 H 12/10/16 08:08 191/96 H 12/10/16 07:25 98.7 F 84 17 191/96 H 97 12/10/16 05:55 78 20 195/97 H 95 12/10/16 04:00 98.2 F 86 16 123/60 92 L 12/10/16 00:28 96 Weight Admit Weight 232 lb 2.348 oz Weight 222 lb 4.8 oz Most Recent Monitor Data Heart Rate from ECG 100 NIBP 125/86 NIBP BP-Mean 96 Respiration from ECG 23 SpO2 94 I&O: 12/09/16 12/10/16 12/11/16 06:59 06:59 06:59 Intake Total 2197 1191 Output Total 322 321 Balance 1875 870 Result Diagrams: 12/10/16 08:04 12/10/16 08:04 Additional Labs: Accuchecks 12/09/16 20:29 POC Glucose 112 H Phys Exam - Physical Examination HEENT: PERRLA, moist MMs, sclera anicteric Neck: no nodes Respiratory: no wheezing, no rales, no rhonchi Cardiovascular: RRR, no significant murmur, no rub, gallop Gastrointestinal: soft, non-tender, no distention, positive bowel sounds Musculoskeletal: no edema Neurological: non-focal Psychiatric: normal affect, A&O x 3 Skin: no rash Dx/Plan (1) Acute respiratory failure Code(s): J96.00 - ACUTE RESPIRATORY FAILURE, UNSP W HYPOXIA OR HYPERCAPNIA Status: Acute Qualifiers: Respiratory failure complication: hypoxia Qualified Code(s): J96.01 - Acute respiratory failure with hypoxia Comment: secondary to seizures (2) Pneumonia involving right lung Code(s): J18.9 - PNEUMONIA, UNSPECIFIED ORGANISM Status: Acute Qualifiers: Pneumonia type: due to unspecified organism Lung location: middle lobe of lung Qualified Code(s): J18.1 - Lobar pneumonia, unspecified organism Comment: right fletcher infiltrate, represents bacterial pneumonia, atypical versus aspiration. On Vanc/Zosyn, will streamline abx. Not MRSA. I believe Levoflox and clinda will better cover. (3) Polysubstance abuse Code(s): F19.10 - OTHER PSYCHOACTIVE SUBSTANCE ABUSE, UNCOMPLICATED Status: Acute (4) Seizure Code(s): R56.9 - UNSPECIFIED CONVULSIONS Status: Acute Comment: neuro following. Aniepilleptics increase. No noted seizure activity in lst 24 hours (5) Diabetes mellitus type 2 Code(s): E11.9 - TYPE 2 DIABETES MELLITUS WITHOUT COMPLICATIONS Status: Chronic (6) End stage renal failure on dialysis Code(s): N18.6 - END STAGE RENAL DISEASE; Z99.2 - DEPENDENCE ON RENAL DIALYSIS Status: Chronic (7) Malignant hypertension Code(s): I10 - ESSENTIAL (PRIMARY) HYPERTENSION Status: Chronic (8) Noncompliance with medication regimen Code(s): Z91.14 - PATIENT'S OTHER NONCOMPLIANCE WITH MEDICATION REGIMEN Status : Chronic - Plan we will continue to adjust pain medications * .
--- NOTE | 2016-12-10 12:24 | PDOC.EVN ---
Event Note - Event Note Event Note: pt seen and examined . progress note dictated # [id number]
--- NOTE | 2016-12-10 12:45 | PRG ---
DATE OF SERVICE: 12/09/2016 This note is for visit of 12/09/16 SUBJECTIVE: The patient is doing well. He is more awake and alert. He denies any chest pain or shortness of breath. He was noted to have elevated blood pressure. Patient tolerated his dialysis well. PHYSICAL EXAMINATION: VITAL SIGNS: On examination, his temperature is 97.9, pulse rate 97, respirations are 17, and blood pressure is 197/103. LUNGS: Chest is clear. HEART: S1, S2 normal. ABDOMEN: Soft, bowel sounds are present. LABORATORY DATA: White count is 12.6, hemoglobin 11.2, and platelet count is 277. Neutrophils are 77. Glucose is 140, potassium 3.3, chloride 99, CO2 26, BUN 18, creatinine 4.94. ASSESSMENT: 1. Resolved acute respiratory failure. 2. Right lung pneumonia, improved. Patient has diminished 1 week of antibiotic. 3. Polysubstance abuse. 4. Seizure disorder, controlled. 5. Type 2 diabetes mellitus, controlled. 6. Mild hypokalemia. 7. Uncontrolled hypertension, slightly worse. 8. Hematuria. The patient is still on Plascencia. DISCUSSION: At this time, patient will be transferred to telemetry floor. We will continue to adjust his blood pressure medications. Await Urology recommendation for a Plascencia, likely presumed to be in place for 2-3 weeks given his history of hematuria. We will transfer out to telemetry if okay with Pulmonary Service. Continue hemodialysis per Renal. We will replace potassium. Patient was encouraged to be compliant with his medications. [facility]
--- NOTE | 2016-12-10 15:16 | PRG ---
DATE OF SERVICE: 12/10/2016 Mr. Wright still has significant blood pressure elevations up to 191/96 today. Heart rate is 84, r espiratory rate is 18, oximetry is 95%. He is resting flat in bed in no distress. Lungs are clear. IMPRESSION: 1. End-stage renal disease. 2. Hypertension, not controlled. 3. Anemia of chronic disease. 4. Cardiomyopathy. 5. Encephalopathy, resolved. 6. History of seizures. 7. Polysubstance abuse. PLAN: Continue support. There are no acute pulmonary issues at this time.
[2016-12-11 05:19] LABS: Anion Gap 18 mmol/L (10-20); BUN (Urea Nitrogen) 38 mg/dL (8.9-20.6); Calc. Creatinine Clearance 16 mL/min (70-130); Calcium 9.3 mg/dL (7.8-10.44); Carbon Dioxide 27 mmol/L (22-29); Chloride 99 mmol/L (98-107); Estimated GFR-MDRD 8
--- NOTE | 2016-12-11 08:44 | PRG ---
DATE OF SERVICE: 12/11/2016 SUBJECTIVE: This is a 41-year-old gentleman being seen for end-stage renal disease. Patient denies any nausea, vomiting or chest pain. PHYSICAL EXAMINATION: GENERAL: Patient is awake, alert. VITAL SIGNS: Afebrile, pulse 96, breathing at 16, blood pressure 158/78. GENERAL APPEARANCE AND MENTAL STATUS: Fair. HEAD/NECK: Normocephalic. Atraumatic. EYES: EOMI. No deformity. EARS: Clear. No ulcers. NOSE: Intact. No lesions. MOUTH: Clear. No discharge. THROAT: Clear. No exudate. LUNGS: Clear. No crackles. CARDIAC: S1, S2. No rub. ABDOMEN: Benign. BS+. GENITALIA/RECTUM: Plascencia absent. BACK/EXTREMITIES: Edema 0+ Ulcer- NEUROLOGICAL: Alert and motor intact. SKIN: Rash- Bruise- LYMPHATICS: Edema- Ulcer- LABORATORY DATA: Show hemoglobin is 12. ASSESSMENT RECOMMENDATIONS: 1. Stage 6 chronic kidney disease. Continue hemodialysis per schedule. 2. Hypertension, stable. 3. Anemia, stable. 4. Medications based on glomerular filtration rate are appropriate.
[2016-12-11] MEDS: Heparin 5,000 UNITS/ML VIAL SC SCH (08:46)
[2016-12-11] MEDS: Lisinopril 20 MG TAB PO SCH (08:46)
[2016-12-11] MEDS: Metoprolol Tartrate 50 MG TAB PO SCH (08:47)
[2016-12-11] MEDS: Valproate Sodium 250 mg/5 ml UD Cup PO SCH (08:47)
[2016-12-11] MEDS: Famotidine 20 MG TAB PO SCH (08:47)
--- NOTE | 2016-12-11 08:52 | PDOC.PN ---
- Subjective Encounter Start Date: 12/11/16 Encounter Start Time: 08:47 Subjective: "ready to go home" - Objective MAR Reviewed: Yes Vital Signs & Weight: Vital Signs (12 hours) Pulse BP Pulse Ox 12/11/16 00:36 96 12/10/16 22:28 96 161/86 H Weight Admit Weight 232 lb 2.348 oz Weight 222 lb 4.8 oz Most Recent Monitor Data Heart Rate from ECG 100 NIBP 125/86 NIBP BP-Mean 96 Respiration from ECG 23 SpO2 94 I&O: 12/10/16 12/11/16 12/12/16 06:59 06:59 06:59 Intake Total 1191 1200 Output Total 321 30 Balance 870 1170 Result Diagrams: 12/10/16 08:04 12/11/16 04:55 Additional Labs: Accuchecks 12/10/16 12/10/16 12/10/16 20:55 17:23 11:23 POC Glucose 138 H 99 101 Phys Exam - Physical Examination Constitutional: NAD Neck: no JVD Respiratory: clear to auscultation bilateral Cardiovascular: RRR, no significant murmur Gastrointestinal: soft, positive bowel sounds Musculoskeletal: no edema Dx/Plan (1) Polysubstance abuse Code(s): F19.10 - OTHER PSYCHOACTIVE SUBSTANCE ABUSE, UNCOMPLICATED Status: Acute (2) Acute respiratory failure Code(s): J96.00 - ACUTE RESPIRATORY FAILURE, UNSP W HYPOXIA OR HYPERCAPNIA Status: Acute Qualifiers: Respiratory failure complication: hypoxia Qualified Code(s): J96.01 - Acute respiratory failure with hypoxia Comment: secondary to seizures (3) Pneumonia involving right lung Code(s): J18.9 - PNEUMONIA, UNSPECIFIED ORGANISM Status: Acute Qualifiers: Pneumonia type: due to unspecified organism Lung location: middle lobe of lung Qualified Code(s): J18.1 - Lobar pneumonia, unspecified organism Comment: right fletcher infiltrate, represents bacterial pneumonia, atypical versus aspiration. On Vanc/Zosyn, will streamline abx. Not MRSA. I believe Levoflox and clinda will better cover. (4) Seizure Code(s): R56.9 - UNSPECIFIED CONVULSIONS Status: Acute Comment: neuro following. Aniepilleptics increase. No noted seizure activity in lst 24 hours (5) Diabetes mellitus type 2 Code(s): E11.9 - TYPE 2 DIABETES MELLITUS WITHOUT COMPLICATIONS Status: Chronic (6) End stage renal failure on dialysis Code(s): N18.6 - END STAGE RENAL DISEASE; Z99.2 - DEPENDENCE ON RENAL DIALYSIS Status: Chronic (7) HLD (hyperlipidemia) Code(s): E78.5 - HYPERLIPIDEMIA, UNSPECIFIED Status: Chronic Qualifiers: Hyperlipidemia type: unspecified Qualified Code(s): E78.5 - Hyperlipidemia , unspecified (8) Malignant hypertension Code(s): I10 - ESSENTIAL (PRIMARY) HYPERTENSION Status: Chronic (9) Noncompliance with medication regimen Code(s): Z91.14 - PATIENT'S OTHER NONCOMPLIANCE WITH MEDICATION REGIMEN Status : Chronic - Plan cont current plan of care discuss with consultants, JEANNE? * .
--- NOTE | 2016-12-11 08:59 | PRG ---
DATE OF SERVICE: 12/11/2016 SUBJECTIVE: The patient is doing reasonably well and has no complaints. PHYSICAL EXAMINATION: VITAL SIGNS: Temperature is 99.1, pulse 96, respirations 18, and O2 sat 96%. HEENT: Unremarkable. NECK: No JVD. CHEST: Clear. CARDIAC: S1, S2 regular. ABDOMEN: Soft. EXTREMITIES: No edema. LABORATORY DATA: Sodium 140, potassium 3.7, chloride 99, CO2 27, BUN 30, creatinine 8.5, and glucos e 87. ASSESSMENT: 1. Stable pulmonary status, status post prolonged intubation. 2. End-stage renal disease. 3. Cocaine abuse. 4. History of seizures. 5. Status post hematuria from Plascencia being inflated in his urethra. PLAN: He looks relatively stable for hospital discharge. I believe his Plascencia is supposed to remain in place for another week before Urology takes that out. Nothing further to add at this time.
[2016-12-11 09:59] VITALS: TEMP 98.1
--- NOTE | 2016-12-11 12:46 | DIS ---
DATE OF ADMISSION: 12/02/2016 DATE OF DISCHARGE: 12/11/2016 DIAGNOSES: Non-ST elevation NV, lactic acidosis, anemia of chronic disease. Acute toxic encephalopa thy. DISPOSITION: Discharged home. PRIMARY CARE PROVIDER: Dr. Jessica Petty. CONSULTATIONS: He was also seen in consultation by Dr. Ccii Ricardo and Dr. Lionel Araiza. DISCHARGE SUMMARY: Acute respiratory failure, polysubstance abuse including cocaine, seizure, diabe juliana mellitus type 2 with end-stage renal disease on hemodialysis, malignant hypertension, dyslipidem ia, noncompliance. DISCHARGE MEDICATIONS: Glipizide 10 mg a day, Zocor 20 mg a day, Renagel 800 mg a day, minoxidil 20 mg a day, metoprolol 50 mg a day, lisinopril 20 mg a day, calcium acetate 667 mg 3 times a day, asp irin 81 mg a day, amlodipine 10 mg a day, Depakene 750 mg p.o. b.i.d. ALLERGIES: No known drug allergies. PENDING AT THE TIME OF DISCHARGE: Nothing. CODE STATUS: FULL. LABORATORY DATA: Laboratory at the time of admission, creatinine 12.34, BUN 41, CO2 of 16. Lactic acid 8.4. CK-MB 15.2, troponin 0.157. White count 19.5, hemoglobin 9.2. Patient's drug screen was positive for barbiturates, benzodiazepine and cocaine. His chest x-ray was pertinent for cardiomeg mark. HOSPITAL COURSE: The patient with multiple medical problems brought to the emergency room with gene ralized tonic clonic seizures. He was encephalopathic at this time, he was admitted with severe hig h blood pressure 245/154, tachypneic and tachycardic. He was seen and placed in the Intensive Care Unit. Consultations were obtained with Dr. Erik Che, Nephrology; Dr. Jose G Person, Pulmonology. The patient required intubation, ventilation, sedation, emergent hemodialysis. On day 2, he remaine d intubated, ventilated. Lactic acidosis, improved on IV fluids. He was on Cardene drip for blood pressure. An enteral tube had been placed for feeding. On day , he remained mechanically intub ated. On 12/04/2016, he underwent therapeutic diagnostic bronchoscopy. ET tube was changed. On , he remained mechanically intubated, still agitated, not following commands, tube feedings were continued, treatment for hypertension was continued, sedation was continued. On 12/08, the patient had been extubated. He was oriented to place but not time recurrent events. He was being transitioned to oral medicines, seizures were controlled. On 12/09/2016, had a fall, h it his head, stat CT revealed no intracranial injury. On 12/10, he was dramatically improved. When I saw him today, he is alert, oriented, cooperative. Blood pressure 161/86, 145/70, 163/83. The p atient's cardiorespiratory exam was unremarkable. He was desirous of going on. He has outpatient d ialysis schedule for tomorrow routinely. He has Sunday, Sunday, Sunday dialysis, presents end-st age renal disease. He was discharged on his medicines as listed in the summary to followup with his PCP in 1 week to continue his Sunday, Sunday, Sunday hemodialysis. He was encouraged to take hi s medicines as directed.
[2016-12-11 12:52] VITALS: BP 130/66
== END 2016-12-11 12:54 | disposition home or self-care (01) | DRG 166 ==
LOC: ERS 13:26 → CCU 15:54 → 2NO 12-09 14:29
PROVIDERS: ADMIT Internal Medicine; ATTEND Internal Medicine
PROC: 5A1955Z Respiratory Ventilation, Greater than 96 Consecutive Hours (ICD-10-PCS; principal; 2016-12-02)
PROC: 0BH17EZ Insertion of Endotracheal Airway into Trachea, Via Natural or Artificial Opening (ICD-10-PCS; 2016-12-02)
PROC: 5A1D70Z Performance of Urinary Filtration, Intermittent, Less than 6 Hours Per Day (ICD-10-PCS; 2016-12-02)
PROC: 0B9F8ZX Drainage of Right Lower Lung Lobe, Via Natural or Artificial Opening Endoscopic, Diagnostic (ICD-10-PCS; 2016-12-04)
PROC: 0T9B80Z Drainage of Bladder with Drainage Device, Via Natural or Artificial Opening Endoscopic (ICD-10-PCS; 2016-12-04)
PROC: 02HV33Z Insertion of Infusion Device into Superior Vena Cava, Percutaneous Approach (ICD-10-PCS; 2016-12-06)
DX: J96.01 Acute respiratory failure with hypoxia (principal); J69.0 Pneumonitis due to inhalation of food and vomit; I21.4 Non-ST elevation (NSTEMI) myocardial infarction; I13.2 Hypertensive heart and chronic kidney disease with heart failure and with stage 5 chronic kidney disease, or end stage renal disease; G92 Toxic encephalopathy; N17.9 Acute kidney failure, unspecified; R34 Anuria and oliguria; S37.39XA Other injury of urethra, initial encounter; N18.6 End stage renal disease; I42.9 Cardiomyopathy, unspecified; I16.1 Hypertensive emergency; E87.2 Acidosis; N25.81 Secondary hyperparathyroidism of renal origin; N13.8 Other obstructive and reflux uropathy; N99.820 Postprocedural hemorrhage of a genitourinary system organ or structure following a genitourinary system procedure; T80.219A Unspecified infection due to central venous catheter, initial encounter; T68.XXXA Hypothermia, initial encounter; G40.401 Other generalized epilepsy and epileptic syndromes, not intractable, with status epilepticus; J96.02 Acute respiratory failure with hypercapnia; I50.9 Heart failure, unspecified; Z99.2 Dependence on renal dialysis; Z91.15 Patient's noncompliance with renal dialysis; E87.70 Fluid overload, unspecified; E11.22 Type 2 diabetes mellitus with diabetic chronic kidney disease; Z89.512 Acquired absence of left leg below knee; F41.9 Anxiety disorder, unspecified; F32.9 Major depressive disorder, single episode, unspecified; E78.5 Hyperlipidemia, unspecified; N40.1 Benign prostatic hyperplasia with lower urinary tract symptoms; R33.8 Other retention of urine; R31.0 Gross hematuria; N35.9 Urethral stricture, unspecified; I73.9 Peripheral vascular disease, unspecified; F14.10 Cocaine abuse, uncomplicated; F19.10 Other psychoactive substance abuse, uncomplicated; D63.1 Anemia in chronic kidney disease; E87.6 Hypokalemia; E87.5 Hyperkalemia; T87.89 Other complications of amputation stump; N48.89 Other specified disorders of penis
CPT/HCPCS: 31500; 36415; 36416; 36556; 51702; 70450; 70551; 71010; 80048; 80053; 80164; 80202; 80306; 80307; 81001; 82553; 82805; 83605; 83735; 84100; 84484; 85025; 86803; 87040; 87070; 87086; 87149; 87205; 87340; 87389; 90935; 93005; 94002; 94003; 94640; 95816; 95819; 96365; 96366; 96375; A4216; C1751; C1769; G0257; G8978-GP-CM; G8979-GP-CJ; J0360; J1644; J1956; J2060; J2250; J2543; J2704; J3010; J3370; J3490; J7050; J7620; Q2009; S0028

== ENCOUNTER 2016-12-17 11:08 | Emergency (ER) | payer OTHER | END 2016-12-17 12:12 | disposition left against medical advice (07) | LOC: ERS 11:08 | DX: R31.9 Hematuria, unspecified (principal); E78.5 Hyperlipidemia, unspecified; I10 Essential (primary) hypertension; Z79.899 Other long term (current) drug therapy | CPT/HCPCS: 99283 ==

== ENCOUNTER 2017-01-15 09:56 | Emergency (ER) | payer OTHER | END 2017-01-15 10:58 | disposition home or self-care (01) | LOC: ERS 09:56 | DX: L73.9 Follicular disorder, unspecified (principal); E78.5 Hyperlipidemia, unspecified; I10 Essential (primary) hypertension | CPT/HCPCS: 99282 ==

== ENCOUNTER 2017-01-17 21:47 | Observation (INO) | payer OTHER ==
[2017-01-17 23:08] LABS: #Basophils 0.1 thou/uL (0.0-0.2); #Eosinphils 0.3 thou/uL (0.0-0.7); #Monocytes 0.4 thou/uL (0.11-0.59); #Neutrophils 3.8 thou/uL (1.40-6.50); %Basophils 1.8 % (0.0-1.0); %Eosinophils 5.3 % (0.0-10.0); %Lymphocytes 17.8 % (21.0-51.0); %Monocytes 7.6 % (0.0-10.0); Hematocrit 27.2 % (42.0-52.0); Mean Platelet Volume 8.9 fL (7.4-10.4); Red Blood Cell (RBC) Count 2.91 mill/uL (4.70-6.10); White Blood Cell (WBC) Count 5.6 thou/uL (4.8-10.8)
[2017-01-17] MEDS ORDERED: Nitroglycerin 2% Ointment 1 INCH/1 GM Packet ONE (23:25)
[2017-01-17] MEDS ORDERED: Nitroglycerin 0.4 MG TAB (25 Tab Bottle) ONE (23:25)
[2017-01-17 23:30] LABS: ALT (SGPT) 12 U/L (8-55); AST (SGOT) 14 U/L (5-34); Alkaline Phosphatase 135 U/L (40-150); Anion Gap 22 mmol/L (10-20); BUN (Urea Nitrogen) 87 mg/dL (8.9-20.6); Bilirubin, Total 0.8 mg/dL (0.2-1.2); CK (CPK) 389 U/L (30-200); Calc. Creatinine Clearance 0 mL/min (70-130); Calcium 8.2 mg/dL (7.8-10.44); Carbon Dioxide 20 mmol/L (22-29); Chloride 98 mmol/L (98-107); Estimated GFR-MDRD 5; Globulin 4.2 g/dL (2.4-3.5); Lipase 114 U/L (8-78); Protein, Total 7.8 g/dL (6.0-8.3)
[2017-01-17 23:33] LABS: Troponin I 0.095 ng/mL (< 0.028)
[2017-01-18] MEDS ORDERED: hydrALAZINE 20 MG/ML VIAL ONE (01:10)
[2017-01-18 01:42] LABS: Troponin I 0.106 ng/mL (< 0.028)
[2017-01-18] MEDS ORDERED: hydrALAZINE 20 MG/ML VIAL SLOW IVP PRN ×2 (02:06→02:26)
[2017-01-18] MEDS ORDERED: Ondansetron ODT 4 MG TAB SL PRN (02:06)
[2017-01-18] MEDS ORDERED: Ondansetron HCl/PF 4 MG/2 ML Vial IVP PRN ×2 (02:06→02:26)
[2017-01-18] MEDS ORDERED: Acetaminophen 325 MG TAB PO PRN ×2 (02:06→02:26)
[2017-01-18] MEDS ORDERED: Loratadine 10 MG TAB PO PRN (02:26)
[2017-01-18] MEDS ORDERED: Nitroglycerin 0.4 MG TAB (25 Tab Bottle) SL PRN (02:26)
[2017-01-18] MEDS ORDERED: HYDROcodone/Acetaminophen 5/325 mg Tablet PO PRN (02:26)
[2017-01-18] MEDS ORDERED: Mag-Al 1200 mg/1200 mg/30 ML UDCUP PO PRN (02:26)
[2017-01-18] MEDS ORDERED: Senokot 8.6 MG TAB PO PRN (02:26)
[2017-01-18] MEDS ORDERED: Calcium Carbonate 500 MG ChewTAB PO PRN (02:26)
[2017-01-18] MEDS ORDERED: Benzonatate 100 MG CAP PO PRN (02:26)
[2017-01-18] MEDS ORDERED: Bisacodyl 5 MG TAB PO PRN (02:26)
[2017-01-18] MEDS ORDERED: Lorazepam 1 MG TAB PO PRN (02:26)
[2017-01-18] MEDS: cloNIDine 0.1 MG TAB PO PRN ×2 (04:12→20:28)
[2017-01-18 04:54] LABS: Acetaminophen Less than 6.0 mcg/mL (10.0-30.0); Salicylate Less than 8.0 mg/dL (15.0-30.0)
[2017-01-18 04:57] LABS: Troponin I 0.102 ng/mL (< 0.028)
--- NOTE | 2017-01-18 05:11 | HP ---
DATE OF ADMISSION: 01/18/2017 PRIMARY CARE PHYSICIAN [facility], Dr. Petty CHIEF COMPLAINT: Feeling dizzy with blurred vision and night sweats. HISTORY OF PRESENT ILLNESS: Mr. Wright is a 41-year-old male with past medical his tory of hypertension, dyslipidemia, drug abuse, seizure disorder, end-stage renal disease on dialysis , diabetes, and left BKA, who presented to the emergency room with the above-mentioned complaints. H istory is mainly obtained by the record review as the patient is rather not talk to me at this time o f the night. It is 4:30 a.m. in the morning. Electronic medical records have been reviewed extensiv rj. The patient was recently admitted here at our facility on 12/02/2016 until 12/11/2016. At that time he had a prolonged hospitalization requiring intubation for encephalopathy that was thought sec ondary to be witnessed tonic clonic seizures. At that time, he was found to have uncontrolled hypert ension requiring Cardene drip and ICU admission. He was eventually discharged on metoprolol, lisinop ril, minoxidil, amlodipine and Depakene. The patient has stopped taking almost all of these except f or the minoxidil. However, when I tried to ask him why he has stopped these he said, "I don't need n o medications". Upon presentation to the emergency room, he was found to be in hypertensive urgency with blood pressu re 235/126. With intervention his blood pressure improved to 189/88. IMPRESSION AND PLAN: He has missed hemodialysis the last time. He is Sunday, , and y scheduled. He has evidence of acute on chronic kidney insufficiency and fluid backup with BNP elev ated to over 3600. He has evidence of end organ damage in the form of elevated cardiac enzymes at 0. 093 with CK-MB of 13.3. He has elevated CK, as well at 389 and lipase is elevated at 114. He is now being admitted for hypertensive urgency and fluid overload. Other than that no history is obtainable from the patient who is rather noncooperative at this time. PAST MEDICAL HISTORY: 1. End-stage renal disease on hemodialysis Tuesdays, , and Saturdays. 2. History of seizure disorder. Patient has stopped taking his Depakene. 3. History of uncontrolled hypertension. 4. Diabetes mellitus type 2. 5. Dyslipidemia. 6. 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 7. History of polysubstance abuse. PAST SURGICAL HISTORY: Left below knee amputation and left upper extremity AV fistula placement. PSYCHIATRIC HISTORY: Anxiety and depression. ALLERGIES: No known medication allergies. FAMILY HISTORY: Multiple family members with hypertension and diabetes. SOCIAL HISTORY: He is currently on Disability. He denies any drug, tobacco or alcohol abuse accordi ng to the history, but he has tested positive for cocaine and marijuana in the past. CURRENT HOME MEDICATIONS: The patient could not accurately tell us about his home medications. Thes e further need to be clarified. REVIEW OF SYSTEMS: Unobtainable due to noncooperation. LABORATORY DATA: CBC shows hemoglobin 9.1, hematocrit 27.2. Serum chemistries show sodium 135, bica rbonate 20, anion gap 22, BUN 87, creatinine 14.42, glucose 174, creatinine kinase 389, BNP 3603, tro ponin 0.095 and then 0.106, lipase is 114. A 12-lead EKG shows prolonged QT and normal sinus rhythm. PHYSICAL EXAMINATION: VITAL SIGNS: Most recent blood pressure is 189/88, pulse of 88, respirations 20, saturating 96% on r oom air, temperature upon presentation 98.4. GENERAL: No acute distress. He is lying comfortably in bed and trying to sleep. He is moving all 4 extremities. He is in no acute distress and appears quite comfortable at this time. His significan t other is present in the room with him. The rest of the physical examination is limited as the patient is not cooperative and does not want m e to examined him. According to the ER report, he did have rale on physical examination. Left BKA i s visible. IMPRESSION AND PLAN: 1. Near syncope. The patient has missed dialysis and is in gross fluid overlo ad at this time. He will be admitted to telemetry unit and we will continue to trend serial cardiac enzymes. His leather skinner will be consulted for need for emergent hemodialysis in the morning. Othe rwise, he had had an extensive cardiac workup done earlier this year, including an echocardiogram in 07/2016 which showed severe concentric left ventricular hypertrophy with preserved ejection fraction of 55%. We will restart his home medications of aspirin and statin, but he is reluctant to take anyt kristin else. Check serum drug screen. 2. Acute pulmonary edema consistent with fluid overload due to missed hemodialysis. Emergent hemodi alysis should be started soon. 3. Acute on chronic kidney disease. Dialysis will be initiated shortly. 4. Elevated troponin, likely demand ischemia from fluid overload. He does have chronically elevated troponin in the setting of chronic renal failure. 5. Elevated lipase, unclear significance. The patient is asymptomatic. We will repeat lipase in th e morning. 6. History of seizure disorder. Unfortunately, the patient has started the medication without couns eling. This will be further discussed when he is more compliant. He needs to be restarted on his De pakote and follow up with Neurology. He has a long history of noncompliance. 7. Anemia of chronic kidney disease. Continue to monitor. Procrit as per Nephrology. 8. Diabetes mellitus type 2. It is unclear if he is taking any oral diabetic medications. At this time, we will start him on insulin sliding scale with frequent Accu-Cheks. 9. Secondary hyperparathyroidism of renal origin. We will restart his PhosLo and Renagel as per naveed e dosage after confirming his home medications. 10. Dyslipidemia. We will start and confirm his Zocor. 11. Deep venous thrombosis and gastrointestinal prophylaxis with subcutaneous heparin and oral Su nix. 12. Code status: Full code, presumed at this time as the patient is not willing to discuss his care with me at the moment. DISPOSITION: He is currently being admitted under observation status for fluid overload. Further ma nagement will depend upon his clinical course. Counseling needs to be provided with the importance o f adherence to medical regimen. The patient is, however, a poor candidate for same.
[2017-01-18] MEDS ORDERED: Nitroglycerin 2% Ointment 1 INCH/1 GM Packet TOP SCH (06:00)
[2017-01-18 07:22] VITALS: BMI 30.1
--- NOTE | 2017-01-18 07:44 | RAD ---
CHEST 1 VIEW: Date: 01/17/17 COMPARISON: 12/08/16. HISTORY: Dyspnea. FINDINGS: Portable upright chest demonstrates an enlarged cardiac silhouette. Pulmonary vessels are prominent. Patchy interstitial opacities. No masses or consolidation. No pleural effusion or pneumothorax. IMPRESSION: Cardiomegaly. Pulmonary vascular congestion. POS: [facility]
--- NOTE | 2017-01-18 08:06 | PDOC.PN ---
- Subjective Encounter Start Date: 01/18/17 Encounter Start Time: 08:04 Subjective: uncooperaative, no distress - Objective MAR Reviewed: Yes Vital Signs & Weight: Vital Signs (12 hours) Temp Pulse Resp BP Pulse Ox 01/18/17 07:31 98.1 F 83 18 139/64 95 01/18/17 06:15 82 193/86 H 01/18/17 04:05 98.4 F 87 18 198/98 H 93 L 01/18/17 02:02 98.3 F 84 20 176/86 H 97 Weight Weight 247 lb 4.8 oz I&O: 01/17/17 01/18/17 01/19/17 06:59 06:59 06:59 Intake Total 240 Balance 240 Result Diagrams: 01/17/17 22:57 01/17/17 22:57 Phys Exam - Physical Examination Constitutional: NAD Neck: no JVD mild post rales Cardiovascular: RRR, no significant murmur Gastrointestinal: soft, non-tender, positive bowel sounds Musculoskeletal: edema present Dx/Plan (1) Seizure Code(s): R56.9 - UNSPECIFIED CONVULSIONS Status: Chronic Comment: neuro following. Aniepilleptics increase. No noted seizure activity in lst 24 hours (2) Diabetes mellitus type 2 Code(s): E11.9 - TYPE 2 DIABETES MELLITUS WITHOUT COMPLICATIONS Status: Chronic (3) End stage renal failure on dialysis Code(s): N18.6 - END STAGE RENAL DISEASE; Z99.2 - DEPENDENCE ON RENAL DIALYSIS Status: Chronic (4) Malignant hypertension Code(s): I10 - ESSENTIAL (PRIMARY) HYPERTENSION Status: Chronic (5) Noncompliance with medication regimen Code(s): Z91.14 - PATIENT'S OTHER NONCOMPLIANCE WITH MEDICATION REGIMEN Status : Chronic (6) Noncompliance with treatment Code(s): Z91.19 - PATIENT'S NONCOMPLIANCE W OTH MEDICAL TREATMENT AND REGIMEN Status: Chronic (7) Volume overload Code(s): E87.70 - FLUID OVERLOAD, UNSPECIFIED Status: Acute - Plan HD per Renal -: control BP -: cont accu/ss -: difficult patient-attitude, compliance * .
[2017-01-18] MEDS: Minoxidil 10 MG TAB PO SCH (08:44)
[2017-01-18] MEDS: Calcium Acetate 667 MG CAP PO SCH ×3 (08:45→18:09)
[2017-01-18] MEDS: Amlodipine 10 MG TAB PO SCH (08:45)
[2017-01-18] MEDS: Sevelamer Carbonate 800 MG TAB PO SCH (08:45)
[2017-01-18] MEDS: Heparin 5,000 UNITS/ML VIAL SC SCH ×2 (08:47→20:29)
[2017-01-18] MEDS ORDERED: Aspirin 325 MG TAB PO SCH (09:00)
[2017-01-18 10:00] LABS: Amphetamine Not Detected (NotDetected); Methadone Not Detected (NotDetected); Methamphetamine Not Detected (NotDetected)
[2017-01-18] MEDS ORDERED: Simvastatin 20 MG TAB PO SCH (21:00)
[2017-01-19 05:01] LABS: #Basophils 0.1 thou/uL (0.0-0.2); #Eosinphils 0.4 thou/uL (0.0-0.7); #Lymphocytes 0.8 thou/uL (1.20-3.40); #Monocytes 0.5 thou/uL (0.11-0.59); #Neutrophils 4.4 thou/uL (1.40-6.50); %Basophils 1.5 % (0.0-1.0); %Eosinophils 7.2 % (0.0-10.0); %Monocytes 8.6 % (0.0-10.0); Hematocrit 27.8 % (42.0-52.0); Mean Platelet Volume 8.3 fL (7.4-10.4); Red Blood Cell (RBC) Count 2.94 mill/uL (4.70-6.10); White Blood Cell (WBC) Count 6.3 thou/uL (4.8-10.8)
[2017-01-19 05:20] LABS: Anion Gap 19 mmol/L (10-20); BUN (Urea Nitrogen) 49 mg/dL (8.9-20.6); Calc. Creatinine Clearance 16 mL/min (70-130); Calcium 8.5 mg/dL (7.8-10.44); Carbon Dioxide 27 mmol/L (22-29); Chloride 100 mmol/L (98-107); Estimated GFR-MDRD 7
[2017-01-19] MEDS: Sevelamer Carbonate 800 MG TAB PO SCH (09:10)
[2017-01-19] MEDS: Amlodipine 10 MG TAB PO SCH (09:11)
[2017-01-19] MEDS: Minoxidil 10 MG TAB PO SCH (09:11)
[2017-01-19] MEDS: Calcium Acetate 667 MG CAP PO SCH (09:11)
[2017-01-19] MEDS: Heparin 5,000 UNITS/ML VIAL SC SCH (09:12)
[2017-01-19 09:15] VITALS: BP 163/77
[2017-01-19 09:39] VITALS: TEMP 97.4
--- NOTE | 2017-01-19 10:25 | DIS ---
TRANSFER OF CARE NOTE DISPOSITION: Discharged home. PRIMARY CARE PROVIDER: Jessica Petty M.D. FINAL DIAGNOSES: 1. Volume overload. 2. Chest pain. 3. End-stage renal disease. 4. Diabetes mellitus type 2. 5. Hypertension. 6. Noncompliance with medications. 7. Noncompliance with dialysis. 8. History of seizures. 9. Cocaine abuse. DISCHARGE MEDICATIONS: Discharge medications are his normal medications which he does not take on a regular basis, minoxidil 20 mg a day, Renagel 800 mg a day, Zocor 20 mg a day, amlodipine 10 mg a day , aspirin 81 mg a day, calcium acetate 667 mg a day. ALLERGIES: No known drug allergies. PENDING AT TIME OF DISCHARGE: Nothing. CODE STATUS: FULL. HOSPITAL COURSE: [facility] with feeling diz zy, blurred vision, night sweats. He was noncompliant with his medications at that time. LABORATORY: Revealed a creatinine of 14, sodium 135, CO2 of 20, BUN of 87. The patient was put in w ith volume overload, underwent dialysis. His creatinine dropped from 14.2 to 9.56. His potassium co ntinued to be normal. His sodium was normal at 142, BUN dropped to 49, he was found to have cocaine positive drug screen. His chest is clear. Heart had a regular rate and rhythm. Blood pressure is 163/77. He has schedule d hemodialysis tomorrow. He is being discharged to followup with hemodialysis tomorrow and Sunday, , and Sunday. He has been asked to follow up with Dr. Petty in 7 days. The patient shields s been sullen and uncooperative with examination, history and physical exam throughout his hospital s stacy. He is currently in no distress and did not want to discuss discharge planning with me. His non compliance with dialysis appointments and his medications and his use of cocaine makes readmission in the near term unfortunately predictable.
--- NOTE | 2017-01-19 12:04 | CON ---
DATE OF CONSULTATION: 01/18/2017 CONSULTING PHYSICIAN: Dr. Riley. REASON FOR CONSULTATION: End-stage renal disease evaluation care. REASON FOR ADMISSION: Dizziness. HISTORY OF PRESENT ILLNESS: A 41-year-old male with history of hypertension, hyperlipidemia, drug ab use, seizure disorder, who came to the hospital with above chronic conditions. No fever, no chills, no chest pain, palpitation, no abdominal pain reported. Patient is very noncompliant with his dialys is and he usually has dialysis Sunday, and Sunday and he has missed at least for a week t his time. Patient is being evaluated for dizziness. PAST MEDICAL HISTORY: Positive for end-stage renal disease, seizure disorder, hypertension, type 2 d iabetes, hyperlipidemia, polysubstance abuse. PAST SURGICAL HISTORY: Left wckid-tby-ltam amputation and AV fistula placement. HOME MEDICATIONS: Keflex, PhosLo, aspirin, amlodipine, Xanax, Zocor, Renagel, minoxidil. ALLERGIES: No known drug allergies. SOCIAL HISTORY: No smoking, alcohol, or illicit drug abuse. FAMILY HISTORY: No history of any kidney disease. REVIEW OF SYSTEMS: The following complete review of systems was negative, unless otherwise mentioned in the HPI or below: Constitutional: Weight loss or gain, ability to conduct usual activities. Skin: Rash, itching. Eyes: Double vision, pain. ENT/Mouth: Nose bleeding, neck stiffness, pain, tenderness. Cardiovascular: Palpitations, dyspnea on exertion, orthopnea. Respiratory: Shortness of breath, wheezing, cough, hemoptysis, fever or night sweats. Gastrointestinal: Poor appetite, abdominal pain, heartburn, nausea, vomiting, constipation, or diarr hea. Genitourinary: Urgency, frequency, dysuria, nocturia. Musculoskeletal: Pain, swelling. Neurologic/Psychiatric: Anxiety, depression. Allergy/Immunologic: Skin rash, bleeding tendency. PHYSICAL EXAMINATION: GENERAL: This is an obese male in no apparent distress. VITAL SIGNS: Temperature 97.3, pulse 73, respirations 20, blood pressure 170/79. HEENT: Atraumatic, normocephalic. Oral mucosa is moist. NECK: Supple, no masses. CARDIOVASCULAR: S1, S2 heard. Rate and rhythm regular. RESPIRATORY: Clear. ABDOMEN: Soft. MUSCULOSKELETAL: No tenderness. DERMATOLOGIC: No skin rash. NEUROLOGIC: Alert, awake. PSYCHIATRIC: Mood and affect normal. LABORATORY DATA: Hemoglobin is 9.1, potassium is 4.5, BUN is 87, creatinine is 14.4. ASSESSMENT AND PLAN: 1. End-stage renal disease on hemodialysis. Plan is to continue on dialysis. 2. Hypertension. Titrate blood pressure medicines. 3. Fluid overload, remove fluid with dialysis. 4. Anemia. Hemoglobin is 9. We will continue on Epogen as tolerated. Plan is to continue on dialy sis as tolerated and as tolerated. 5. Noncompliance, counseled. Thank you for the consultation.
--- NOTE | 2017-01-19 12:48 | PRG ---
DATE OF SERVICE: 01/19/2017 SUBJECTIVE: Patient was seen and examined at bedside and overnight events noted. Patient denies any shortness of breath or chest pain or palpitation. No history of nausea or vomiting or diarrhea or f ever or chills or cramps. OBJECTIVE: GENERAL: This is an obese male in no apparent distress. VITAL SIGNS: Temperature 97.4, pulse 93, respiratory rate 22, and blood pressure 163/77. HEENT: Atraumatic, normocephalic. Oral mucosa is moist. NECK: Supple. CARDIOVASCULAR: S1, S2 heard. Rate and rhythm regular. RESPIRATORY: Clear to auscultation. GASTROINTESTINAL: Abdomen is soft. MUSCULOSKELETAL: No tenderness, no edema. DERMATOLOGIC: No skin rash. NEUROLOGIC: Alert and awake and oriented x3. No focal neurologic deficits. Moving all the extremit ies. PSYCHIATRIC: Mood and affect normal. LABORATORY DATA: Potassium is 4.1, BUN is 49, creatinine is 9.1. ASSESSMENT AND PLAN: 1. End-stage renal disease, continue on hemodialysis as tolerated. 2. Status post . 3. Hypertension, stable. 4. Edema, controlled. 5. Anemia of end-stage renal disease. 6. Plan is to continue on dialysis Sunday, , and Sunday as tolerated.
== END 2017-01-19 10:38 | disposition home or self-care (01) ==
LOC: ERS 21:47 → 2SW 01-18 00:47
PROVIDERS: ADMIT Internal Medicine; ATTEND Internal Medicine
DX: E87.70 Fluid overload, unspecified (principal); R07.9 Chest pain, unspecified; E11.22 Type 2 diabetes mellitus with diabetic chronic kidney disease; I12.0 Hypertensive chronic kidney disease with stage 5 chronic kidney disease or end stage renal disease; N18.6 End stage renal disease; R56.9 Unspecified convulsions; F14.10 Cocaine abuse, uncomplicated; F41.8 Other specified anxiety disorders; R55 Syncope and collapse; J81.0 Acute pulmonary edema; N17.9 Acute kidney failure, unspecified; R74.8 Abnormal levels of other serum enzymes; D63.1 Anemia in chronic kidney disease; N25.81 Secondary hyperparathyroidism of renal origin; Z99.2 Dependence on renal dialysis; Z73.6 Limitation of activities due to disability; Z91.15 Patient's noncompliance with renal dialysis; Z91.14 Patient's other noncompliance with medication regimen; Z79.2 Long term (current) use of antibiotics; Z79.82 Long term (current) use of aspirin; Z79.899 Other long term (current) drug therapy; Z89.512 Acquired absence of left leg below knee; Z86.59 Personal history of other mental and behavioral disorders
CPT/HCPCS: 36415; 71010; 80048; 80053; 80306; 80307; 82553; 83690; 83880; 84484; 85025; 87340; 90935; 93005; 96374; 96376; A4216; G0257; G0378; J0360; J1644

== ENCOUNTER 2017-03-28 02:24 | Emergency (ER) | payer OTHER ==
[2017-03-28] MEDS ORDERED: Lidocaine 1% w/Epinephrine 1:100K 20 ML VIAL ONE (03:00)
== END 2017-03-28 03:52 | disposition home or self-care (01) ==
LOC: ERS 02:24
DX: L02.31 Cutaneous abscess of buttock (principal); E78.5 Hyperlipidemia, unspecified; I10 Essential (primary) hypertension; Z99.2 Dependence on renal dialysis
CPT/HCPCS: 10060; 87070; 87077; 87186; 87205; J2001

== ENCOUNTER 2017-03-31 04:41 | Inpatient (IN) | payer OTHER ==
[2017-03-31 05:51] LABS: #Eosinphils 0.5 thou/uL (0.0-0.7); #Lymphocytes 0.8 thou/uL (1.20-3.40); #Monocytes 0.8 thou/uL (0.11-0.59); #Neutrophils 7.4 thou/uL (1.40-6.50); %Basophils 0.1 % (0.0-1.0); %Eosinophils 5.7 % (0.0-10.0); %Lymphocytes 8.3 % (21.0-51.0); %Neutrophils 77.9 % (42.0-75.0); Hemoglobin 9.9 g/dL (14.0-18.0); Mean Corpuscular HGB CONC 32.3 g/dL (32.0-36.0); Mean Corpuscular Volume 89.8 fl (80.0-94.0); Mean Platelet Volume 8.3 fL (7.4-10.4); Platelet Count 282 thou/uL (130-400); RBC Distribution Width 14.6 % (11.5-14.5); Red Blood Cell (RBC) Count 3.41 mill/uL (4.70-6.10); White Blood Cell (WBC) Count 9.5 thou/uL (4.8-10.8)
[2017-03-31 06:05] LABS: Anion Gap 23 mmol/L (10-20); BUN (Urea Nitrogen) 80 mg/dL (8.9-20.6); Calc. Creatinine Clearance 0 mL/min (70-130); Calcium 9.3 mg/dL (7.8-10.44); Carbon Dioxide 27 mmol/L (22-29); Chloride 92 mmol/L (98-107); Estimated GFR-MDRD 5; Glucose 75 mg/dL (70-105); Potassium 4.8 mmol/L (3.5-5.1); Sodium 137 mmol/L (136-145)
[2017-03-31] MEDS ORDERED: hydrALAZINE 20 MG/ML VIAL ONE (06:47)
[2017-03-31] MEDS ORDERED: Ondansetron HCl/PF 4 MG/2 ML Vial IVP PRN ×2 (09:39→10:46)
[2017-03-31] MEDS ORDERED: Ondansetron ODT 4 MG TAB PO PRN ×2 (09:39→10:46)
[2017-03-31] MEDS ORDERED: Acetaminophen 325 MG TAB PO PRN (09:40)
[2017-03-31 10:09] VITALS: BMI 26.7
[2017-03-31] MEDS ORDERED: cefTRIAXone\\ROCEPHIN 2 GM in Sodium Chloride 0.9% 100 ML IVPB SCH (10:46)
[2017-03-31] MEDS ORDERED: traMADol HCl 50 MG TAB PO PRN (10:46)
[2017-03-31] MEDS ORDERED: Acetaminophen 500 MG TAB PO PRN (10:46)
[2017-03-31] MEDS: Calcium Acetate 667 MG CAP PO SCH ×2 (12:35→17:59)
[2017-03-31] MEDS: cloNIDine 0.1 MG TAB PO PRN ×3 (12:41→22:24)
[2017-03-31] MEDS: hydrALAZINE 20 MG/ML VIAL SLOW IVP PRN ×2 (14:53→22:13)
--- NOTE | 2017-03-31 14:53 | HP ---
DATE OF ADMISSION: 03/31/2017 PRIMARY CARE PHYSICIAN: Jessica Petty M.D. PRIMARY CONTINUOUS VULCANIZING MACHINE OPERATOR: Alexx Johnson M.D. CHIEF COMPLAINT: Back abscess. HISTORY OF PRESENT ILLNESS: This is a 42-year-old male who presents to [facility] Emergency Department for reevaluation of lower back abscess status post incisio n and drainage with packing of the abscess approximately 48 hours prior to this evaluation. The chris ent states he underwent a local incision and drainage on 03/29/2017 and was placed on oral antibiotic therapy. The patient states the pain in the area increased with worsening drainage. The patient de nied any specific documented fever, but states he was returning to the emergency room for evaluation of the wound and repacking. Evaluation in the emergency room showed purulent drainage of the abscess cavity at the lower lumbar spine and superior aspect of the sacrum with replacement of wound packing . Wound culture performed on 03/28/2017 showed methicillin-resistant Staphylococcus aureus. The pat ient received IV vancomycin in the emergency room as well as morphine sulfate intravenous normal sali ne x1 liter and hydralazine 10 mg IV push. The patient's blood pressure was noted severely elevated at 246/148. The patient's history also significant for end-stage renal disease with hemodialysis on Sunday, , and Saturdays. The patient states he has not undergone his hemodialysis today. T he patient denies any specific shortness of breath, but some chest tightness. The patient also admit s to some headache and low back pain. PAST MEDICAL HISTORY: 1. End-stage renal disease with hemodialysis Sunday, , and Sunday. 2. Hypertension, uncontrolled. 3. Hyperlipidemia. 4. History of noncompliance. 5. Tobacco abuse. 6. History of cocaine use. 7. Questionable history of seizures. PAST SURGICAL HISTORY: 1. Status post AV fistula placement. 2. Status post above the knee amputation of the left lower extremity. 3. Status post back surgery. CURRENT MEDICATIONS: 1. Alprazolam 2 mg p.o. b.i.d. 2. Amlodipine 10 mg p.o. daily. 3. Enteric coated aspirin 81 mg 1 tab p.o. daily. 4. Calcium acetate 667 mg p.o. t.i.d. 5. Renagel 800 mg p.o. daily. 6. Zocor 20 mg p.o. at bedtime. ALLERGIES: No known drug allergies. FAMILY HISTORY: Multiple family members with hypertension and diabetes. SOCIAL HISTORY: Currently disabled. Smokes up to a half a pack to a pack of cigarettes daily. Hist ory of cocaine and marijuana use. No current alcohol. REVIEW OF SYSTEMS: The following complete review of systems was negative, unless otherwise mentioned in the HPI or below: Constitutional: Weight loss or gain, ability to conduct usual activities. Skin: Rash, itching. Eyes: Double vision, pain. ENT/Mouth: Nose bleeding, neck stiffness, pain, tenderness. Cardiovascular: Palpitations, dyspnea on exertion, orthopnea. Respiratory: Shortness of breath, wheezing, cough, hemoptysis, fever or night sweats. Gastrointestinal: Poor appetite, abdominal pain, heartburn, nausea, vomiting, constipation, or diarrhea. Genitourinary: Urgency, frequency, dysuria, nocturia. Musculoskeletal: Pain, swelling. Neurologic/Psychiatric: Anxiety, depression. Allergy/Immunologic: Skin rash, bleeding tendency. PHYSICAL EXAMINATION: VITAL SIGNS: Currently, blood pressure 240/121, pulse 93, respiratory rate 20, temperature 98.3 degr ees Fahrenheit, O2 saturation 95% on room air. GENERAL APPEARANCE: This is a 42-year-old male, alert and oriented x3, in no acute distress. HEENT: Pupils are equal, round, and reactive to light and accommodation. Extraocular muscles are in tact. No scleral icterus, no conjunctival injection. Nares patent. OP is clear. NECK: Supple, no cervical adenopathy, no thyromegaly, no carotid bruits, no JVD appreciated. Cervic al spine with full active and passive range of motion. CHEST: Lungs are clear to auscultation bilaterally. CARDIOVASCULAR: S1, S2 with tachycardia. ABDOMEN: Obese, soft, nontender, nondistended. Bowel sounds are positive in all four quadrants. Th ere is no hepatosplenomegaly, no abdominal bruits, no rebound or guarding appreciated. EXTREMITIES: Warm and dry with fair turgor. Left lower extremity prosthesis in place. Mild edema n oted in the right lower extremity. SKIN: Shows abscess of the lower lumbar spine on the superior aspect of the gluteal region. Approxi mately 3 x 3 center purulence with 8 centimeter area of induration, firmness, and tenderness to palpa tion. NEUROLOGIC: Cranial nerves II-XII are grossly intact. No focal or lateralizing signs appreciated. PERTINENT LABORATORY AND X-RAY FINDINGS: Sodium 137, potassium 4.8, chloride 92, CO2 of 27, BUN 80, creatinine 13.33, estimated GFR 5, glucose 75, lactic acid 1.4, calcium 9.3. CBC showed a white bloo d cell count 9.5, hemoglobin 10, hematocrit 31, platelet count 282 with 78% neutrophils. Wound cultu re dated 03/28/2017, positive for methicillin-resistant Staphylococcus aureus. ASSESSMENT AND PLAN: 1. Lower lumbar/upper gluteal abscess. The patient will be admitted to the medical floor. We will continue intravenous vancomycin sliding scale with dialysis. Consult Wound Care Service for local ca re and repacking of the wound. Wound culture positive for methicillin-resistant Staphylococcus aureu s sensitive to vancomycin. We will continue to monitor clinical response to IV antibiotics and local care. The patient may need further resection and surgical debridement. 2. Hypertensive urgency. We will consult Nephrology service for hemodialysis. The patient's curren t hemodialysis regular session scheduled on 03/31/2017. We will provide clonidine and hydralazine fo r systolic greater than 170. Resume home antihypertensive regimen to include amlodipine 10 mg daily. 3. Chronic normocytic anemia secondary to chronic kidney disease. Stable currently. No evidence to suggest acute blood loss. Repeat CBC in the a.m. 4. History of noncompliance. We will continue to encourage compliance with dialysis and wound care. Case management consult for coordination of care after discharge. 5. Prophylaxis. Sequential compression devices while in bed. Pepcid 20 mg p.o. b.i.d. 6. Code status is FULL. Surrogate medical decision maker is Matthew Wright.
[2017-03-31] MEDS ORDERED: diphenhydrAMINE 50 MG/ML VIAL ONE (15:52)
[2017-03-31] MEDS ORDERED: diphenhydrAMINE 50 MG/ML VIAL IVP PRN (17:03)
[2017-03-31] MEDS: Atorvastatin Calcium 10 MG TAB PO SCH (22:13)
[2017-03-31] MEDS: ALPRAZolam 1 MG TAB PO SCH (22:13)
[2017-03-31] MEDS: Famotidine 20 MG TAB PO SCH (22:24)
--- NOTE | 2017-04-01 00:59 | CON ---
DATE OF CONSULTATION: 03/31/2017 CONSULTING PHYSICIAN: Martinez Alcala D.O. REASON FOR CONSULTATION: End-stage renal disease evaluation and care. REASON FOR ADMISSION: Back abscess. HISTORY OF PRESENT ILLNESS: This is a 42-year-old male with history of end-stage renal disea se, hypertension, hyperlipidemia, and tobacco use, came to the hospital with back abscess and failed antibiotic therapy as outpatient getting treatment. The patient is due for dialysis today. Nephrolo gy was consulted for maintenance dialysis . He is noncompliant with dialysis. No fevers, chill s, no nausea or vomiting. He is complaining of back pain and he was edematous. PAST MEDICAL HISTORY: Positive for end-stage renal disease, hypertension, hyperlipidemia, substance abuse, seizure. PAST SURGICAL HISTORY: AV fistula placement, knee amputation, back surgery, dialysis access placemen t. HOME MEDICATIONS: Alprazolam, amlodipine, aspirin, calcium acetate, Renagel, Zocor. ALLERGIES: He has no known drug allergies. FAMILY HISTORY: Positive for hypertension. SOCIAL HISTORY: Smokes half pack per day, history of cocaine and marijuana use. No alcohol use. REVIEW OF SYSTEMS: The following complete review of systems was negative, unless otherwise mentioned in the HPI or below: Constitutional: Weight loss or gain, ability to conduct usual activities. Skin: Rash, itching. Eyes: Double vision, pain. ENT/Mouth: Nose bleeding, neck stiffness, pain, tenderness. Cardiovascular: Palpitations, dyspnea on exertion, orthopnea. Respiratory: Shortness of breath, wheezing, cough, hemoptysis, fever, or night sweats. Gastrointestinal: Poor appetite, abdominal pain, heartburn, nausea, vomiting, constipation, or diarr hea. Genitourinary: Urgency, frequency, dysuria, nocturia. Musculoskeletal: Pain, swelling. Neurologic/Psychiatric: Anxiety, depression. Allergy/Immunologic: Skin rash, bleeding tendency. PHYSICAL EXAMINATION: GENERAL: This is a well-built white male in no apparent distress. VITAL SIGNS: Temperature 97.9, pulse 111, respirations 18, blood pressure 223/176. HEENT: Atraumatic, normocephalic. Oral mucosa is moist. NECK: Supple, no masses. CARDIOVASCULAR: S1, S2 heard. Rate and rhythm regular. RESPIRATORY: Clear. MUSCULOSKELETAL: 2+ edema. DERMATOLOGIC: No rash. NEUROLOGIC: Alert and awake. PSYCHIATRIC: Mood and affect normal. LABORATORY DATA: Hemoglobin is 9.9, potassium is 4.8, BUN is 80, creatinine is 13.3. ASSESSMENT AND PLAN: 1. End-stage renal disease. Continue on hemodialysis. 2. Fluid overload with edema. 3. Hypertension. Remove fluid with dialysis. Continue home medications. 4. Anemia. We will follow. Plan is to have dialysis today and tomorrow as tolerated with fluid removal. The patient had tolerat ed dialysis today with 5 liters off. Plan for another session tomorrow with 4-5 liters off if tolera pasquale. Continue blood pressure control with p.r.n. IV medications if needed. Thank you for the consult. We will continue on dialysis as tolerated. Plan is to have daily dialysi s at least for 2 days.
[2017-04-01 03:54] LABS: Eosinophils 5 % (0-10); Hemoglobin 11.4 g/dL (14.0-18.0); Lymphocytes 6 % (21-51); MDiff Complete? YES; Mean Corpuscular HGB CONC 32.9 g/dL (32.0-36.0); Mean Corpuscular Hemoglobin 29.8 pg (27.0-31.0); Mean Corpuscular Volume 90.5 fl (80.0-94.0); Mean Platelet Volume 8.4 fL (7.4-10.4); Monocytes 5 % (0-10); Neutrophil 84 % (42-75); PLT Morphology Comment Appears Adequate; Platelet Count 244 thou/uL (130-400); RBC Distribution Width 14.6 % (11.5-14.5); Red Blood Cell (RBC) Count 3.81 mill/uL (4.70-6.10); White Blood Cell (WBC) Count 6.5 thou/uL (4.8-10.8)
[2017-04-01 04:03] LABS: Anion Gap 20 mmol/L (10-20); BUN (Urea Nitrogen) 44 mg/dL (8.9-20.6); Calc. Creatinine Clearance 15 mL/min (70-130); Calcium 8.9 mg/dL (7.8-10.44); Carbon Dioxide 27 mmol/L (22-29); Chloride 96 mmol/L (98-107); Estimated GFR-MDRD 8; Glucose 190 mg/dL (70-105); Potassium 4.3 mmol/L (3.5-5.1); Sodium 139 mmol/L (136-145)
[2017-04-01] MEDS ORDERED: Promethazine HCl 25 MG/ML VIAL SLOW IVP PRN (04:15)
[2017-04-01 09:20] LABS: Hep B Surf Ag Non-Reactive S/CO (NonReactive)
[2017-04-01] MEDS: Calcium Acetate 667 MG CAP PO SCH ×3 (13:08→17:25)
[2017-04-01] MEDS: Amlodipine 10 MG TAB PO SCH (13:09)
[2017-04-01] MEDS: Sevelamer Carbonate 800 MG TAB PO SCH (13:09)
[2017-04-01] MEDS: ALPRAZolam 1 MG TAB PO SCH ×2 (13:10→20:37)
--- NOTE | 2017-04-01 17:21 | PRG ---
DATE OF SERVICE: 04/01/2017. SUBJECTIVE: Patient was seen and examined at bedside and overnight events noted. Patient denies any shortness of breath or chest pain or palpitation. No history of nausea or vomiting or diarrhea or fever or chills or cramps. OBJECTIVE: GENERAL: This is an obese male in no apparent distress. VITAL SIGNS: Temperature 97, pulse 93, respiratory rate 18, blood pressure 170/77. HEENT: Atraumatic, normocephalic, Oral mucosa is moist. NECK: Supple CARDIOVASCULAR: S1, S2 heard, rate and rhythm regular. RESPIRATORY: Clear to auscultation GASTROINTESTINAL: Abdomen is soft MUSCULOSKELETAL: No tenderness, No edema DERMATOLOGIC: No skin rash NEUROLOGIC: Alert and awake and oriented x3. No focal neurologic deficits. Moving all the extremit ies. PSYCHIATRIC: Mood and affect normal. LABORATORY DATA: Potassium is 4.3, BUN is 44, and creatinine is 9.03. ASSESSMENT AND PLAN: 1. End-stage renal disease, status post dialysis. The patient was seen during dialysis. Continue d ialysis. 2. Edema with fluid overload. Remove fluid with dialysis. 3. Hypertension. 4. Anemia. 5. Noncompliance, counseled. The patient had extra dialysis today and advised to limit fluid intake, counseled to have regular ses de of some dialysis. We will follow.
--- NOTE | 2017-04-01 17:36 | PDOC.PN ---
- Subjective Encounter Start Date: 04/01/17 Encounter Start Time: 17:15 Subjective: f/u for HTN urgency and L gluteal abscess with MRSA. Tolerating HD and -: BP improved. Currently on Vancomycin with HD. - Objective Resuscitation Status: Resuscitation Status FULL:Full Resuscitation Vital Signs & Weight: Vital Signs (12 hours) Temp Pulse Resp BP Pulse Ox 04/01/17 13:09 93 04/01/17 08:00 98.7 F 93 20 170/77 H 94 L Weight Admit Weight 220 lb Weight 220 lb Result Diagrams: 04/01/17 03:05 04/01/17 03:05 Additional Labs: Accuchecks 04/01/17 03:15 POC Glucose 189 H Microbiology 03/31/17 06:00 Venous blood - Right Hand Blood Culture - Preliminary Specimen has been received and culture in progress. No Growth to date. 03/31/17 05:30 Venous blood - Right Hand Blood Culture - Preliminary Specimen has been received and culture in progress. No Growth to date. Laboratory Tests 03/31/17 03/31/17 03/31/17 05:32 05:32 05:35 Hgb 9.9 L BUN 80 H Creatinine 13.33 H Calcium 9.3 Hep Bs Antigen Non-Reactive Phys Exam - Physical Examination Constitutional: NAD HEENT: PERRLA, oral pharynx no lesions Neck: no JVD, supple Respiratory: no wheezing, clear to auscultation bilateral Cardiovascular: RRR Gastrointestinal: soft, non-tender, no distention, positive bowel sounds LUE with AV fistula, L BKA Musculoskeletal: no edema, pulses present Neurological: moves all 4 limbs Psychiatric: A&O x 3 Skin: normal turgor, cap refill <2 seconds Dx/Plan (1) Hypertensive urgency Code(s): I16.0 - HYPERTENSIVE URGENCY Status: Acute Comment: Resolved, likely due to non-compliance, resume home BP regimen and monitor clinical response (2) Abscess, gluteal cleft Code(s): L02.31 - CUTANEOUS ABSCESS OF BUTTOCK Status: Acute Comment: MRSA on wound cx, continue Vancomycin sliding scale with HD, WCT for local care (3) End stage renal failure on dialysis Code(s): N18.6 - END STAGE RENAL DISEASE; Z99.2 - DEPENDENCE ON RENAL DIALYSIS Status: Chronic Comment: HD per Renal service, monitor clinical trend (4) Noncompliance with treatment Code(s): Z91.19 - PATIENT'S NONCOMPLIANCE W OTH MEDICAL TREATMENT AND REGIMEN Status: Chronic Comment: Encourage compliance with medications and HD - Plan continue antibiotics, social sciences lecturer, out of bed/ambulate Stable currently -: Continue Vancomycin sliding scale with HD -: Continue WCT with local care -: Pain control as clinically indicated -: Add Metoprolol 12.5mg BID * .
[2017-04-01] MEDS ORDERED: Vancomycin HCl 750 MG in Sodium Chloride 0.9% 250 ML 250 ML IVPB SCH (18:00)
[2017-04-01] MEDS ORDERED: Vancomycin HCl 1.25 GM in Sodium Chloride 0.9% 250 ML 250 ML IVPB SCH (18:00)
[2017-04-01] MEDS ORDERED: Vancomycin HCl 500 MG in Sodium Chloride 0.9% 100 ML IVPB SCH (18:00)
[2017-04-01] MEDS ORDERED: Vancomycin HCl 1 GM in Premix Bag 1 BAG IVPB SCH (18:00)
[2017-04-01] MEDS ORDERED: HOLD VANCOMYCIN FOR LEVEL >20 FS SCH (18:00)
[2017-04-01] MEDS: Atorvastatin Calcium 10 MG TAB PO SCH (20:37)
[2017-04-01] MEDS: Famotidine 20 MG TAB PO SCH (20:38)
[2017-04-01] MEDS: Metoprolol Tartrate 25 MG TAB PO SCH (20:38)
[2017-04-02] MEDS ORDERED: Vancomycin HCl 1 GM in Sodium Chloride 0.9% 250 ML 250 ML IVPB SCH (09:00)
--- NOTE | 2017-04-02 10:11 | PRG ---
DATE OF SERVICE: 04/02/2017 SUBJECTIVE: This is an 42-year-old gentleman being seen for end-stage renal disease. The patient de nies any nausea, vomiting or chest pain. PHYSICAL EXAMINATION: GENERAL: Patient is awake, alert. VITAL SIGNS: Afebrile, pulse 70, breathing at 16, blood pressure 116/59. OBJECTIVE: See above. Awake, alert, in no acute distress. GENERAL APPEARANCE AND MENTAL STATUS: Fair. HEAD/NECK: Normocephalic. Atraumatic. EYES: EOMI. No deformity. EARS: Clear. No ulcers. NOSE: Intact. No lesions. MOUTH: Clear. No discharge. THROAT: Clear. No exudate. LUNGS: Clear. No crackles. CARDIAC: S1, S2. No rub. ABDOMEN: Benign. BS+. GENITALIA/RECTUM: Plascencia absent. BACK/EXTREMITIES: Edema 0+ Ulcer- NEUROLOGICAL: Alert and motor intact. SKIN: Rash- Bruise- LYMPHATICS: Edema- Ulcer- LABORATORY: Hemoglobin 9.4. ASSESSMENT: 1. Stage 6 chronic kidney disease. We will plan hemodialysis as scheduled. 2. Hypertension. 3. Anemia, stable. 4. Medications based on glomerular filtration rate are appropriate.
[2017-04-02] MEDS: Metoprolol Tartrate 25 MG TAB PO SCH (10:37)
[2017-04-02] MEDS: Amlodipine 10 MG TAB PO SCH (10:38)
[2017-04-02] MEDS: ALPRAZolam 1 MG TAB PO SCH (10:39)
[2017-04-02 11:50] VITALS: BP 156/89; TEMP 97.8
[2017-04-02] MEDS: Calcium Acetate 667 MG CAP PO SCH (18:39)
[2017-04-02] MEDS: Sevelamer Carbonate 800 MG TAB PO SCH (18:40)
--- NOTE | 2017-04-02 23:46 | DIS ---
DATE OF ADMISSION: 03/31/2017 DATE OF DISCHARGE: 04/02/2017 DISCHARGE DIAGNOSES: 1. Left gluteal cleft abscess with methicillin-resistant Staphylococcus aureus. 2. End-stage renal disease with hemodialysis. 3. Hypertensive urgency, resolved. 4. Noncompliance with medical treatment. CONSULTATIONS: Dr. Johnson with Nephrology Service. PERTINENT LABORATORY AND X-RAY FINDINGS: Creatinine ranged between 9.03 to 13.33. Lactic acid level 1.4. CBC showed a hemoglobin ranging between 9.9 to 11.4. Blood cultures dated on 03/31/2017 showe d 1 out of 2 positive for presumptive corynebacterium. Left gluteal abscess culture dated on 018 showed methicillin-resistant Staphylococcus aureus. HOSPITAL COURSE: Patient was admitted to the medical floor after initially presenting with left lowe r lumbar and upper gluteal cleft abscess with methicillin-resistant Staphylococcus aureus. Patient w as placed on IV vancomycin, receiving this with hemodialysis during the hospital course. Patient was also noted with hypertensive urgency at the initial presentation in the emergency room, placed on IV and oral blood pressure regimen to include clonidine and hydralazine. Patient underwent hemodialysi s with overall stabilization of blood pressures. After 2 sessions of hemodialysis. Patient received local wound care by Wound Care team with daily dressing changes and wound packing exchange. Patient overall remained clinically stable throughout the hospital course, tolerating IV antibiotic therapy with hemodialysis as well as local wound care. Patient overall clinically stable and ready for disch arge on 04/02/2017. DISCHARGE MEDICATIONS: 1. Alprazolam 2 mg 1 tab p.o. b.i.d. 2. Amlodipine 10 mg 1 tab p.o. daily. 3. Enteric coated aspirin 81 mg 1 tab p.o. daily. 4. Calcium acetate 667 mg p.o. t.i.d. 5. Renagel 800 mg p.o. daily. 6. Zocor 20 mg p.o. at bedtime. 7. Vancomycin sliding scale with hemodialysis Tuesdays, , and Saturdays, ending on 04/16/19 18. FOLLOWUP: Patient will follow up with [facility] in [place], [place] within 3 days of discharge. Annelise melva will follow up with Dr. Johnsno with Nephrology service for outpatient hemodialysis. CONDITION ON DISCHARGE: Fair. ACTIVITY: Ad neo. DIET: Renal. SPECIAL INSTRUCTIONS: Recommend wound dressing changes and exchange of current packing within 48 tracie rs of discharge. CODE STATUS: FULL. DISPOSITION: Home 04/02/2017.
== END 2017-04-02 17:38 | disposition home or self-care (01) | DRG 602 ==
LOC: ERS 04:41 → T4-B 09:32
PROVIDERS: ADMIT Hospitalist; ATTEND Hospitalist
PROC: 5A1D70Z Performance of Urinary Filtration, Intermittent, Less than 6 Hours Per Day (ICD-10-PCS; principal; 2017-04-01)
PROC: 5A1D70Z Performance of Urinary Filtration, Intermittent, Less than 6 Hours Per Day (ICD-10-PCS; 2017-04-02)
DX: L02.31 Cutaneous abscess of buttock (principal); N18.6 End stage renal disease; I12.0 Hypertensive chronic kidney disease with stage 5 chronic kidney disease or end stage renal disease; Z89.612 Acquired absence of left leg above knee; E87.70 Fluid overload, unspecified; B95.62 Methicillin resistant Staphylococcus aureus infection as the cause of diseases classified elsewhere; Z99.2 Dependence on renal dialysis; E78.5 Hyperlipidemia, unspecified; Z91.19 Patient's noncompliance with other medical treatment and regimen; F17.210 Nicotine dependence, cigarettes, uncomplicated; I16.0 Hypertensive urgency; D63.1 Anemia in chronic kidney disease
CPT/HCPCS: 10060; 36415; 36416; 80048; 83605; 85007; 85025; 85027; 87040; 87340; 90935; 96365; 96375; G0257; J0360; J1200; J2405; J3370; Q0162

== ENCOUNTER 2017-04-04 02:41 | Inpatient (IN) | payer OTHER ==
[2017-04-04] MEDS ORDERED: hydrALAZINE 20 MG/ML VIAL ONE ×2 (03:17→04:19)
[2017-04-04 03:37] LABS: #Basophils 0.1 thou/uL (0.0-0.2); #Eosinphils 0.5 thou/uL (0.0-0.7); #Monocytes 0.7 thou/uL (0.11-0.59); #Neutrophils 6.4 thou/uL (1.40-6.50); %Basophils 0.7 % (0.0-1.0); %Eosinophils 5.4 % (0.0-10.0); %Lymphocytes 11.7 % (21.0-51.0); %Monocytes 8.5 % (0.0-10.0); %Neutrophils 73.7 % (42.0-75.0); Hemoglobin 9.6 g/dL (14.0-18.0); Mean Corpuscular HGB CONC 32.4 g/dL (32.0-36.0); Mean Corpuscular Hemoglobin 29.2 pg (27.0-31.0); Mean Corpuscular Volume 90.2 fl (80.0-94.0); Mean Platelet Volume 7.9 fL (7.4-10.4); Platelet Count 310 thou/uL (130-400); RBC Distribution Width 14.6 % (11.5-14.5); Red Blood Cell (RBC) Count 3.27 mill/uL (4.70-6.10); White Blood Cell (WBC) Count 8.6 thou/uL (4.8-10.8)
[2017-04-04 03:49] LABS: ALT (SGPT) 11 U/L (8-55); AST (SGOT) 17 U/L (5-34); Albumin 3.6 g/dL (3.5-5.0); Alkaline Phosphatase 173 U/L (40-150); Anion Gap 17 mmol/L (10-20); BUN (Urea Nitrogen) 43 mg/dL (8.9-20.6); Bilirubin, Total 0.8 mg/dL (0.2-1.2); Calc. Creatinine Clearance 0 mL/min (70-130); Calcium 9.3 mg/dL (7.8-10.44); Carbon Dioxide 27 mmol/L (22-29); Chloride 98 mmol/L (98-107); Estimated GFR-MDRD 6; Glucose 94 mg/dL (70-105); Potassium 4.5 mmol/L (3.5-5.1); Protein, Total 8.6 g/dL (6.0-8.3); Sodium 137 mmol/L (136-145)
[2017-04-04 03:54] LABS: Troponin I 0.139 ng/mL (< 0.028)
[2017-04-04 03:57] LABS: CKMB 6.8 ng/mL (0-6.6)
[2017-04-04] MEDS ORDERED: Aspirin 325 MG TAB ONE (04:19)
[2017-04-04 06:28] LABS: Acetaminophen Less than 6.0 mcg/mL (10.0-30.0); Alcohol Less than 10 mg/dL (Less than 10); Salicylate Less than 8.0 mg/dL (15.0-30.0)
--- NOTE | 2017-04-04 07:51 | RAD ---
PORTABLE CHEST ONE VIEW: Date: 04-04-17 Time: 3:32 a.m. History: Endstage renal failure, patient on dialysis. Patient missed dialysis. FINDINGS: Comparison is made with exam of 01-17-17. The heart size is enlarged. No lobar consolidation, pneumothorax, yoandy pulmonary edema, or pleural e ffusions are seen. IMPRESSION: No acute process. POS: [facility]
--- NOTE | 2017-04-07 13:48 | EKG ---
Test Reason : Blood Pressure : / mmHG Vent. Rate : 087 BPM Atrial Rate : 087 BPM P-R Int : 160 ms QRS Dur : 094 ms QT Int : 408 ms P-R-T Axes : 064 004 074 degrees QTc Int : 490 ms Normal sinus rhythm Possible Left atrial enlargement Prolonged QT Abnormal ECG Confirmed by IAN STEVENS ([id number]), pictures editor MILEY LOPEZ ([id number]) on 04/07/2017 1:47:32 PM Referred By: RODNEY Confirmed By:IAN STEVENS
== END 2017-04-04 07:00 | disposition left against medical advice (07) | DRG 602 ==
LOC: ERS 02:41 → ERHOLD 05:21
PROVIDERS: ADMIT Family Medicine; ATTEND Family Medicine
DX: L02.31 Cutaneous abscess of buttock (principal); N18.6 End stage renal disease; I12.0 Hypertensive chronic kidney disease with stage 5 chronic kidney disease or end stage renal disease; I16.0 Hypertensive urgency; E78.5 Hyperlipidemia, unspecified; E78.00 Pure hypercholesterolemia, unspecified; R79.89 Other specified abnormal findings of blood chemistry; Z99.2 Dependence on renal dialysis; Z91.15 Patient's noncompliance with renal dialysis; Z79.82 Long term (current) use of aspirin; Z79.899 Other long term (current) drug therapy; Z89.512 Acquired absence of left leg below knee
CPT/HCPCS: 71045; 80053; 80307; 82553; 83605; 84484; 85025; 93005; 96365; 96375; J0360; J3370

== ENCOUNTER 2017-04-15 19:42 | Emergency (ER) | payer OTHER ==
[2017-04-15] MEDS ORDERED: hydrALAZINE 25 MG TAB ONE (21:05)
[2017-04-15 21:17] LABS: #Basophils 0.1 thou/uL (0.0-0.2); #Eosinphils 0.2 thou/uL (0.0-0.7); #Lymphocytes 0.8 thou/uL (1.20-3.40); #Monocytes 0.4 thou/uL (0.11-0.59); #Neutrophils 4.2 thou/uL (1.40-6.50); %Eosinophils 4.4 % (0.0-10.0); %Lymphocytes 13.4 % (21.0-51.0); %Monocytes 7.7 % (0.0-10.0); %Neutrophils 73.6 % (42.0-75.0); Hemoglobin 10.3 g/dL (14.0-18.0); Mean Corpuscular HGB CONC 32.4 g/dL (32.0-36.0); Mean Corpuscular Hemoglobin 29.1 pg (27.0-31.0); Mean Corpuscular Volume 89.9 fl (80.0-94.0); Mean Platelet Volume 8.9 fL (7.4-10.4); Platelet Count 189 thou/uL (130-400); RBC Distribution Width 15.8 % (11.5-14.5); Red Blood Cell (RBC) Count 3.54 mill/uL (4.70-6.10); White Blood Cell (WBC) Count 5.7 thou/uL (4.8-10.8)
[2017-04-15 21:40] LABS: Anion Gap 22 mmol/L (10-20); BUN (Urea Nitrogen) 100 mg/dL (8.9-20.6); Calc. Creatinine Clearance 0 mL/min (70-130); Calcium 9.2 mg/dL (7.8-10.44); Carbon Dioxide 22 mmol/L (22-29); Chloride 100 mmol/L (98-107); Estimated GFR-MDRD 5; Glucose 114 mg/dL (70-105); Potassium 4.4 mmol/L (3.5-5.1); Sodium 140 mmol/L (136-145)
--- NOTE | 2017-04-15 22:27 | ULT ---
ULTRASOUND OF BACK: History: Palpable abnormality in the lower back area. By history this has been incised and drained. This shows some induration to the tissue in this region without a definite defined fluid collection. IMPRESSION: Mixed attenuation change of the soft tissues which appears to represent edema change. I do not see a definite discrete abscess collection. It is possible that some of the heterogeneous change was relate d to some type of complex fluid collection, but could just represent indurated tissue. POS: [facility]
== END 2017-04-16 04:25 | disposition home or self-care (01) ==
LOC: ERS 19:42
DX: S31.000A Unspecified open wound of lower back and pelvis without penetration into retroperitoneum, initial encounter (principal); I12.0 Hypertensive chronic kidney disease with stage 5 chronic kidney disease or end stage renal disease; N18.6 End stage renal disease; Z79.82 Long term (current) use of aspirin; Z79.899 Other long term (current) drug therapy; X58.XXXA Exposure to other specified factors, initial encounter
CPT/HCPCS: 36415; 76705; 80048; 85025; 96365; J3370

== ENCOUNTER 2017-04-17 18:29 | Observation (INO) | payer OTHER ==
[2017-04-17 19:50] LABS: #Basophils 0.1 thou/uL (0.0-0.2); #Eosinphils 0.3 thou/uL (0.0-0.7); #Lymphocytes 0.7 thou/uL (1.20-3.40); #Monocytes 0.4 thou/uL (0.11-0.59); #Neutrophils 4.5 thou/uL (1.40-6.50); %Eosinophils 5.8 % (0.0-10.0); %Lymphocytes 11.4 % (21.0-51.0); %Monocytes 6.2 % (0.0-10.0); %Neutrophils 75.6 % (42.0-75.0); Hemoglobin 9.4 g/dL (14.0-18.0); Mean Corpuscular HGB CONC 32.7 g/dL (32.0-36.0); Mean Corpuscular Hemoglobin 29.2 pg (27.0-31.0); Mean Corpuscular Volume 89.2 fl (80.0-94.0); Mean Platelet Volume 8.7 fL (7.4-10.4); Platelet Count 196 thou/uL (130-400); RBC Distribution Width 16.2 % (11.5-14.5)
[2017-04-17 20:16] LABS: ALT (SGPT) 11 U/L (8-55); AST (SGOT) 15 U/L (5-34); Albumin 3.9 g/dL (3.5-5.0); Alkaline Phosphatase 141 U/L (40-150); Anion Gap 23 mmol/L (10-20); BUN (Urea Nitrogen) 110 mg/dL (8.9-20.6); Bilirubin, Total 0.9 mg/dL (0.2-1.2); Calc. Creatinine Clearance 0 mL/min (70-130); Calcium 8.8 mg/dL (7.8-10.44); Carbon Dioxide 20 mmol/L (22-29); Chloride 100 mmol/L (98-107); Estimated GFR-MDRD 4; Globulin 4.8 g/dL (2.4-3.5); Glucose 113 mg/dL (70-105); Magnesium 2.1 mg/dL (1.6-2.6); Potassium 4.6 mmol/L (3.5-5.1); Protein, Total 8.7 g/dL (6.0-8.3); Sodium 138 mmol/L (136-145)
--- NOTE | 2017-04-17 21:45 | CT ---
CT HEAD NONCONTRAST 04/17/17 INDICATION: Blurry vision. COMPARISON: 12/10/16. FINDINGS: Ventricular system is age appropriate in size. There is mild chronic microvascular ischemic disease o f the cerebral white matter. No intracranial hemorrhage, mass effect, or midline shift. No significan t interval change. Ventricular system is age appropriate in size. There is mild chronic microvascular ischemic disease of the cerebral white matter. No intracranial hemorrhage, mass effect or midline sh ift. No significant interval change identified. Redemonstration of partial visualization of prominent edema of the posterior scalp soft tissues. correlate clinically. IMPRESSION: No acute intracranial abnormalities. POS: [facility]
[2017-04-17] MEDS ORDERED: Bisacodyl 5 MG TAB PO PRN (22:45)
[2017-04-17] MEDS ORDERED: Acetaminophen 650 MG Suppository PR PRN (22:45)
[2017-04-17] MEDS ORDERED: Acetaminophen 325 MG TAB PO PRN (22:45)
[2017-04-17] MEDS ORDERED: hydrALAZINE 20 MG/ML VIAL SLOW IVP PRN (22:58)
[2017-04-17] MEDS ORDERED: hydrALAZINE 20 MG/ML VIAL ONE (22:59)
--- NOTE | 2017-04-17 23:39 | HP ---
PRIMARY CARE PROVIDER: None. Patient reports that he is in the process of switching providers and was previously seen by Dr. Jessica Petty. CRAYON GRADER: Dr. Johnson. CHIEF COMPLAINT: High blood pressure. HISTORY OF PRESENT ILLNESS: Mr. Wright is a pleasant 42-year-old gentleman who was seen at [facility] on 04/17/2017. He has hemodialysis as an outpatient. He missed dialysis in the last couple of weeks. He reports that he did not feel like going for hemodialysis, and therefore did not go. He also reports that he started having blurry vision this afternoon. He reports that the blurry vision is constant. He reports that he is unable to read words. However, he is able to watch television. He is also able to count fingers correctly. He denies any nausea or vomiting. He reports that he had a headache that has now resolved. He denies any fevers or chills. REVIEW OF SYSTEMS: The following complete review of systems was negative, unless otherwise mentioned in the HPI or below: Constitutional: Weight loss or gain, ability to conduct usual activities. Skin: Rash, itching. Eyes: Double vision, pain. ENT/Mouth: Nose bleeding, neck stiffness, pain, tenderness. Cardiovascular: Palpitations, dyspnea on exertion, orthopnea. Respiratory: Shortness of breath, wheezing, cough, hemoptysis, fever, or night sweats. Gastrointestinal: Poor appetite, abdominal pain, heartburn, nausea, vomiting, constipation, or diarrhea. Genitourinary: Urgency, frequency, dysuria, nocturia. Musculoskeletal: Pain, swelling. Neurologic/Psychiatric: Anxiety, depression. Allergy/Immunologic: Skin rash, bleeding tendency. PAST MEDICAL HISTORY: Significant for end-stage renal disease with hemodialysis Sunday, , and Sunday; hypertension; dyslipidemia; history of noncompliance; tobacco abuse; cocaine use; questionable history of seizures; back abscess. PAST SURGICAL HISTORY: Significant for AV fistula placement, left below-knee- amputation, and back surgery. SOCIAL HISTORY: Patient denies tobacco use, alcohol use, and recreational drug use. ALLERGIES: No known drug allergies. CURRENT MEDICATIONS: It is unclear whether he is compliant with his medications. He was on alprazolam, amlodipine, enteric-coated aspirin, calcium acetate, Renogen, and Zocor in the past. FAMILY HISTORY: No family history of premature coronary artery disease. PHYSICAL EXAMINATION: GENERAL: Mr. Wright is awake and alert, not in acute distress. VITAL SIGNS: Blood pressure is 197/91, pulse is 95. He is breathing at rate of 16 and saturating 96% on room air. He is afebrile. When he presented to the emergency room, he had a blood pressure of 236/131. EYES: No scleral icterus, no conjunctival pallor. ENT: Moist mucosal membranes, no oropharyngeal erythema or exudates. NECK: Supple, nontender, normal range of movement, trachea is midline. RESPIRATORY: Accessory muscles of breathing are not active. Chest wall movements are symmetric bilaterally. Lungs are clear to auscultation without wheeze, rhonchi, or crepitations. CARDIOVASCULAR: S1 and S2 are heard, regular. Peripheral pulses palpable. No carotid bruit, no pericardial rub. He has a left upper extremity dialysis access. ABDOMEN: Soft, nontender, bowel sounds heard, no hepatomegaly, no splenomegaly. NEUROLOGIC: He reports that he is unable to read print. Otherwise, he is able to count fingers. He is able to watch television. Otherwise, cranial nerves II -XII are intact. Deep tendon reflexes 2+. PSYCHIATRIC: Normal mood, normal affect, patient is oriented to person, place, and time. MUSCULOSKELETAL: Status post left BKA. Power is 5/5 in all 4 extremities. SKIN: He has healing wound over the left buttock. He also has multiple tattoos. LYMPHATIC: No cervical lymphadenopathy. LABORATORY DATA: Mr. Wright's labs and investigations were reviewed. I reviewed his electrocardiogram, which shows normal sinus rhythm, no ST changes to suggest an acute coronary syndrome. I also reviewed noncontrast CT scan of the brain, which did not show any bleed. He has a normal white count, normocytic anemia with hemoglobin 9.4, normal platelet count, normal sodium, normal potassium, decreased carbon dioxide of 20, elevated anion gap of 23, elevated blood urea nitrogen of 110, elevated creatinine of 15.02, unremarkable liver function tests, and elevated BNP of 2844 ASSESSMENT AND PLAN: Mr. Wright is a pleasant 42-year-old gentleman who was seen at [facility] on 04/17/2017. His problem list includes: 1. Hypertensive emergency: Mr. Cedenos blood pressure has improved since coming to the emergency room. He will be admitted to the hospital for further monitoring and administration of intravenous antihypertensives as needed. 2. End-stage renal disease on dialysis. He has been noncompliant with his dialysis sessions. His case was discussed with his human resources project coordinator by emergency room physician. Patient will be dialyzed in the morning. 3. Dyslipidemia: Continue patient's home medications once clarified. 4. Noncompliance with treatment plan: Patient has been counseled to be compliant. LEVEL OF RISK: High. LEVEL OF COMPLEXITY: High. MTDD
[2017-04-17 23:53] VITALS: BMI 31.8
[2017-04-18 05:59] LABS: #Basophils 0.1 thou/uL (0.0-0.2); #Eosinphils 0.5 thou/uL (0.0-0.7); #Lymphocytes 0.7 thou/uL (1.20-3.40); #Monocytes 0.6 thou/uL (0.11-0.59); #Neutrophils 4.8 thou/uL (1.40-6.50); %Eosinophils 8.3 % (0.0-10.0); %Lymphocytes 9.9 % (21.0-51.0); %Monocytes 8.5 % (0.0-10.0); %Neutrophils 72.3 % (42.0-75.0); Hemoglobin 9.2 g/dL (14.0-18.0); Mean Corpuscular HGB CONC 32.9 g/dL (32.0-36.0); Mean Corpuscular Hemoglobin 29.3 pg (27.0-31.0); Mean Platelet Volume 10.1 fL (7.4-10.4); Platelet Count 206 thou/uL (130-400); RBC Distribution Width 16.4 % (11.5-14.5); Red Blood Cell (RBC) Count 3.15 mill/uL (4.70-6.10); White Blood Cell (WBC) Count 6.6 thou/uL (4.8-10.8)
[2017-04-18 06:18] LABS: Anion Gap 25 mmol/L (10-20); BUN (Urea Nitrogen) 116 mg/dL (8.9-20.6); Calc. Creatinine Clearance 10 mL/min (70-130); Calcium 8.8 mg/dL (7.8-10.44); Carbon Dioxide 21 mmol/L (22-29); Chloride 99 mmol/L (98-107); Estimated GFR-MDRD 4; Glucose 141 mg/dL (70-105); Potassium 4.7 mmol/L (3.5-5.1); Sodium 140 mmol/L (136-145)
[2017-04-18 08:02] VITALS: TEMP 98.5
[2017-04-18] MEDS ORDERED: Heparin 5,000 UNITS/ML VIAL SC SCH (09:00)
--- NOTE | 2017-04-18 11:25 | CON ---
DATE OF CONSULTATION: 04/18/2017 REASON FOR CONSULTATION: Maintenance hemodialysis. HISTORY OF PRESENT ILLNESS: This is a very pleasant 42-year-old gentleman who misses dialysis on a r egular basis, who presented to the hospital with elevated blood pressure. The patient was not hyperk alemic and had blood pressure in the 240s, for which he had not taken his medicines. The patient den ies headache, numbness, tingling or weakness. PAST MEDICAL HISTORY: End-stage renal disease, history of hyperlipidemia, noncompliance, tobacco use , cocaine use, history of seizures, history of AV fistula, history of tunneled dialysis catheter, his tory of left below knee replacement. SOCIAL/FAMILY HISTORY: History of drug use. ALLERGIES: Reviewed. HOME MEDICATIONS: Reviewed. REVIEW OF SYSTEMS: A 15-point review of systems was performed and negative except positives noted. GENERAL: Weakness- HEAD: Headache- NECK: No swelling or lumps. NOSE: No epistaxis or discharge. EYES: No diplopia or pain. RESPIRATORY: Dyspnea- CARDIOVASCULAR: Chest pain- GASTROINTESTINAL: Nausea- /HEALTH EDUCATION DIRECTOR: Hematuria- MUSCULOSKELETAL: No joint pain. NEUROPSYCHIATIC SYSTEMS: No suicidal ideation. No ideation. SKIN: Denies any rash or ulcer. CONSTITUTIONAL: No fever or chills. PHYSICAL EXAMINATION: GENERAL: Patient was awake, alert. VITAL SIGNS: Afebrile, pulse 94, breathing at 16, blood pressure 132/62. OBJECTIVE: See above. Awake, alert, in no acute distress. GENERAL APPEARANCE AND MENTAL STATUS: Fair. HEAD/NECK: Normocephalic. Atraumatic. EYES: EOMI. No deformity. EARS: Clear. No ulcers. NOSE: Intact. No lesions. MOUTH: Clear. No discharge. THROAT: Clear. No exudate. LUNGS: Clear. No crackles. CARDIAC: S1, S2. No rub. ABDOMEN: Benign. BS+. GENITALIA/RECTUM: Plascencia absent. BACK/EXTREMITIES: Edema 0+ Ulcer- NEUROLOGICAL: Alert and motor intact. SKIN: Rash- Bruise- LYMPHATICS: Edema- Ulcer- LABORATORY: Hemoglobin 9.2, potassium 4.7. ASSESSMENT AND RECOMMENDATIONS: 1. Stage 6 chronic kidney disease with uremia. Plan urgent hemodialysis. 2. Hypertension. Plan ultrafiltration and compliance with medication was discussed. 3. Secondary hyperparathyroidism. Continue low phosphorus diet. 4. Medications based on glomerular filtration rate are appropriate.
[2017-04-18] MEDS ORDERED: ALPRAZolam 1 MG TAB PO PRN (11:48)
[2017-04-18] MEDS ORDERED: Sevelamer Carbonate 800 MG TAB PO PRN (11:52)
[2017-04-18] MEDS ORDERED: Sevelamer Carbonate 800 MG TAB PO SCH (12:00)
[2017-04-18] MEDS ORDERED: Calcium Acetate 667 MG CAP PO PRN (12:00)
[2017-04-18] MEDS ORDERED: SEVELAMER HCL 1600 MG PO SCH (12:00)
[2017-04-18] MEDS ORDERED: Calcium Acetate 667 MG CAP PO SCH (12:00)
[2017-04-18 12:15] LABS: Acetaminophen Less than 6.0 mcg/mL (10.0-30.0); Alcohol Less than 10 mg/dL (Less than 10); Salicylate Less than 8.0 mg/dL (15.0-30.0)
[2017-04-18 12:38] VITALS: BP 144/63
[2017-04-18] MEDS ORDERED: hydrALAZINE 25 MG TAB PO SCH (15:00)
[2017-04-18] MEDS ORDERED: Simvastatin 20 MG TAB PO SCH (21:00)
[2017-04-19] MEDS ORDERED: Amlodipine 10 MG TAB PO SCH (09:00)
[2017-04-19] MEDS ORDERED: Minoxidil 10 MG TAB PO SCH (09:00)
--- NOTE | 2017-04-19 12:06 | DIS ---
DISCHARGE DIAGNOSES: 1. Hypertensive urgency/emergency. 2. End-stage renal disease on hemodialysis. 3. General noncompliance. BRIEF SUMMARY OF HOSPITAL COURSE: This is a 42-year-old male with a known history of end-stage renal disease, hypertension who presented with elevated blood pressures. Unfortunately, the patient also has a known history of medication noncompliance, including with oral medications and medical regimen such as hemodialysis. The patient was seen by Nephrology in consultation during this hospitalization and underwent hemodialysis without adverse sequelae. Resumption of the patient's home regimen controlled his blood pressure. The remainder of the patient's chronic medical issues have remained stable during this hospitalization. CONSULTATIONS: Nephrology. MEDICATION RECONCILIATION: The patient is being discharged on his home regimen without change. Need for compliance has been reviewed with the patient. DISCHARGE CONDITION AT THE TIME OF DISCHARGE: The patient is hemodynamically stable. I have seen and examined the patient on the day of discharge. He has at baseline diet and activity. DISCHARGE INSTRUCTIONS: The patient is asked to follow up closely with his outpatient team including a new primary care provider, his Nephrology team, and hemodialysis. Thank you for asking me to care for the patient. With questions or concerns, please contact me at [facility]. Greater than 30 minutes spent coordinating discharge for the patient. BLAIRE
--- NOTE | 2017-05-12 15:57 | EKG ---
Test Reason : Blood Pressure : / mmHG Vent. Rate : 088 BPM Atrial Rate : 088 BPM P-R Int : 160 ms QRS Dur : 098 ms QT Int : 418 ms P-R-T Axes : -06 074 -34 degrees QTc Int : 505 ms Normal sinus rhythm Abnormal QRS-T angle, consider primary T wave abnormality Prolonged QT Abnormal ECG Confirmed by INEZ ZHOU, LIANET ([id number]), design editor ROGER RIVER ([id number]) on 05/12/2017 3:56:11 PM Referred By: Confirmed By:LIANET WILEY MD
== END 2017-04-18 15:31 | disposition home or self-care (01) ==
LOC: ERS 18:29 → 2SW 23:38
PROVIDERS: ADMIT Internal Medicine; ATTEND Internal Medicine
DX: I16.1 Hypertensive emergency (principal); I12.0 Hypertensive chronic kidney disease with stage 5 chronic kidney disease or end stage renal disease; N18.6 End stage renal disease; N25.81 Secondary hyperparathyroidism of renal origin; E78.5 Hyperlipidemia, unspecified; Z91.15 Patient's noncompliance with renal dialysis; Z79.82 Long term (current) use of aspirin; Z79.899 Other long term (current) drug therapy; Z89.512 Acquired absence of left leg below knee; Z99.2 Dependence on renal dialysis
CPT/HCPCS: 36415; 70450; 80048; 80053; 80307; 83735; 83880; 84100; 85025; 93005; 96374; A4216; G0378; J0360; J1644

== ENCOUNTER 2017-06-15 21:56 | Observation (INO) | payer OTHER ==
[2017-06-15 22:25] LABS: #Basophils 0.1 thou/uL (0.0-0.2); #Eosinphils 0.2 thou/uL (0.0-0.7); #Lymphocytes 0.8 thou/uL (1.20-3.40); #Monocytes 0.4 thou/uL (0.11-0.59); #Neutrophils 3.7 thou/uL (1.40-6.50); %Basophils 1.4 % (0.0-1.0); %Eosinophils 3.8 % (0.0-10.0); %Lymphocytes 15.9 % (21.0-51.0); %Monocytes 7.5 % (0.0-10.0); %Neutrophils 71.5 % (42.0-75.0); Hemoglobin 10.3 g/dL (14.0-18.0); Mean Corpuscular HGB CONC 33.4 g/dL (32.0-36.0); Mean Corpuscular Hemoglobin 30.4 pg (27.0-31.0); Mean Corpuscular Volume 90.9 fl (80.0-94.0); Mean Platelet Volume 8.5 fL (7.4-10.4); Platelet Count 165 thou/uL (130-400); RBC Distribution Width 16.6 % (11.5-14.5); Red Blood Cell (RBC) Count 3.38 mill/uL (4.70-6.10); White Blood Cell (WBC) Count 5.1 thou/uL (4.8-10.8)
--- NOTE | 2017-06-15 22:29 | RAD ---
SINGLE VIEW OF THE CHEST: 06/15/17 COMPARISON: 04/04/17 HISTORY: Chest pain. FINDINGS: Single view of the chest shows a normal sized cardiomediastinal silhouette. There is no evidence of c onsolidation, mass, or pleural effusion. The bones are unremarkable. IMPRESSION: No evidence of acute cardiopulmonary disease. POS: [facility]
[2017-06-15 22:34] LABS: ALT (SGPT) 19 U/L (8-55); AST (SGOT) 22 U/L (5-34); Albumin 4.2 g/dL (3.5-5.0); Alkaline Phosphatase 167 U/L (40-150); Anion Gap 23 mmol/L (10-20); BUN (Urea Nitrogen) 60 mg/dL (8.9-20.6); CK (CPK) 287 U/L (30-200); Calc. Creatinine Clearance 0 mL/min (70-130); Calcium 9.6 mg/dL (7.8-10.44); Carbon Dioxide 23 mmol/L (22-29); Chloride 98 mmol/L (98-107); Estimated GFR-MDRD 6; Globulin 4.1 g/dL (2.4-3.5); Glucose 163 mg/dL (70-105); Lipase 23 U/L (8-78); Phosphorus 7.9 mg/dL (2.3-4.7); Potassium 4.9 mmol/L (3.5-5.1); Protein, Total 8.3 g/dL (6.0-8.3); Sodium 139 mmol/L (136-145)
[2017-06-15 22:37] LABS: Troponin I 0.141 ng/mL (< 0.028)
[2017-06-15] MEDS ORDERED: hydrALAZINE 20 MG/ML VIAL ONE (22:40)
[2017-06-15 22:42] LABS: CKMB 9.4 ng/mL (0-6.6)
[2017-06-15] MEDS ORDERED: Nitroglycerin 2% Ointment 1 INCH/1 GM Packet ONE (23:19)
[2017-06-16] MEDS ORDERED: Ondansetron ODT 4 MG TAB SL PRN (00:39)
[2017-06-16] MEDS ORDERED: Ondansetron HCl/PF 4 MG/2 ML Vial IVP PRN ×2 (00:39→00:50)
[2017-06-16] MEDS ORDERED: Acetaminophen 325 MG TAB PO PRN (00:50)
[2017-06-16] MEDS ORDERED: traMADol HCl 50 MG TAB PO PRN (00:50)
[2017-06-16] MEDS ORDERED: Ondansetron ODT 4 MG TAB PO PRN (00:50)
[2017-06-16 00:57] VITALS: BMI 33.0
[2017-06-16] MEDS ORDERED: Calcium Acetate 667 MG CAP PO PRN (01:09)
[2017-06-16] MEDS: hydrALAZINE 20 MG/ML VIAL SLOW IVP PRN ×2 (01:23→05:49)
[2017-06-16 01:28] LABS: Troponin I 0.177 ng/mL (< 0.028)
--- NOTE | 2017-06-16 01:35 | HP ---
PRIMARY CARE PHYSICIAN: The patient states that he is currently does not have a primary physician. He had been going to the [facility]. He does dialyze Sunday, , and Sunday due to end-stage renal disease with Dr. Johnson. REASON FOR ADMISSION: Chest pain. HISTORY OF PRESENT ILLNESS: Mr. Keller is a pleasant 42-year-old gentleman that has a history of end-stage renal disease on hemodialysis. He says that earlier this morning, he began having "real sh anson pain" when he got up, he says that it was on the left side of his chest. It did not wake him fro m sleep, but he did notice it when he got up, he says that he also noticed some heavy feeling and num bness and tingling in his right arm. He also felt like he was getting hot and was complaining of rachana rry vision. For this reason, he came to the emergency room. When he was in the ER, it was found melissa t his blood pressure was extremely high, initially reported to me as being 243/132. He was given hyd ralazine 20 mg IV as well as had nitro paste placed and his blood pressure went down to 170 systolic and he is being admitted for hypertensive urgency. The patient has a history of hypertensive urgenci es in the past with review of his records and it is usually due to medical noncompliance. The patien t also admits that he did miss dialysis on because he did not have a ride, but says in reali ty, he just more or less blew it off because he did not feel that he was volume overloaded and says t hat he was close to his driveway. The patient denies any chest pains, no nausea, no vomiting, no abimbola nge in bowels. In general, no other complaints. He says that the chest pain, he still has some tigh tness after his blood pressure has been lowered some. REVIEW OF SYSTEMS: Constitutional: There have been no fevers, chills, no night sweats, no weight lo ss. HEENT: He denies any headaches, no dizziness. He has had blurred vision, no sore throat, no rh inorrhea, no neck pain, no adenopathy. Pulmonary: No hemoptysis, no cough, no wheezing. Cardiovasc ular: He has had some pain in the left side of his chest, but no PND, no orthopnea. No lower extrem ity edema. Gastrointestinal: He describes some vague abdominal pain, but no nausea, no vomiting. H e says his bowels are regular. Genitourinary: No urinary frequency, hematuria, no hesitancy. Neuro logic: No focal weakness, numbness, no seizures. Psychiatric: No symptoms of anxiety or depression . Skin and Integument: No skin changes. No rash. PAST MEDICAL HISTORY: Significant for end-stage renal disease on hemodialysis on Sunday, , and Sunday; hypertension; hyperlipidemia; and medical noncompliance. PAST SURGICAL HISTORY: He has had an AV fistula placed and a left below the knee amputation due to a cellulitis after stepping on a nail. ALLERGIES: No known drug allergies. SOCIAL HISTORY: He is single. He has no children. He is a nonsmoker, nondrinker. FAMILY HISTORY: Significant for hypertension and diabetes mellitus. MEDICATIONS: He is not sure of his medicines. He says one of them as amlodipine, he believes anothe r as hydralazine. He says are the same as when he was discharged in March and at that time it was alprazolam 2 mg twice a day, amlodipine 10 mg daily, aspirin 81 mg daily, calcium acetate or PhosLo 6 67 mg t.i.d., Renagel 800 mg daily, and Zocor 20 mg at bedtime. PHYSICAL EXAMINATION: GENERAL: He is alert and oriented. He appears to be in no acute distress. VITAL SIGNS: His latest blood pressure was 170/91, heart rate 92, respiratory rate of 20, and he is afebrile. HEENT: Pupils are equal, round, and reactive to light and accommodation. His sclerae are anicteric. Throat: There is no erythema, no exudates. NECK: No adenopathy, no bruits. LUNGS: Clear to auscultation. I did not appreciate any wheezing or rales. CARDIOVASCULAR: He has a normal S1, S2. He did have a grade 2/6 systolic murmur at the base. No ru bs. ABDOMEN: Obese, it is soft. He had some diffuse tenderness. There was no rebound, no guarding, no organomegaly is appreciated. EXTREMITIES: He has got a left BKA on the right lower extremity. He has got 1+ edema, some mild joellen ous stasis changes. His dorsalis pedis pulses were slightly diminished, but palpable. NEUROLOGIC: His cranial nerves II-XII intact. Muscle strength is also intact in both the upper and lower extremities. LABORATORY RESULTS: Sodium was 139, potassium is 4.9, chloride is 98, CO2 is 23, BUN is 60, creatini ne 10.86, glucose is 163. White blood cell count 5.1, hemoglobin 10.3, hematocrit is 30.7, and plate let count is 165. EKG was reported as having no significant change; however, this will need to be ve rified. On his chest x-ray, his heart size, there is a mild cardiomegaly, but there is no evidence o f any increase in pulmonary vascular markings or airspace disease. Costophrenic angles are sharp and there is no evidence of effusion. ASSESSMENT AND PLAN: 1. This is a 42-year-old gentleman that presents to the emergency room with atypical chest pain. He also had extremely elevated blood pressure of 243/132. This is likely the cause of his chest discom fort. In review of his records, he has had several admissions for elevated blood pressure in 2013. He did have a nuclear stress test that was negative. He has also had a recent echocardiogram in 07/04 in which there was some concentric left ventricular hypertrophy and the ejection fraction was mil dly depressed, but the ejection fraction was 55%-60% and there was no mention of any regional wall mo tion abnormality. The patient also admits that he did not take his blood pressure medicine today and his pressure responded quite well to a single dose of hydralazine. Therefore, he will be admitted t o observation for hypertensive urgency. We will restart him on amlodipine as well as hydralazine p.r .n. We will continue to monitor his cardiac enzymes; however, the slight increase in troponin is con sistent with what it has been in the past and therefore unlikely to represent an acute coronary syndr ome. 2. End-stage renal disease, he has been noncompliant with this. I did explain to him the importance of compliance and we will consult Dr. Johnson for routine maintenance hemodialysis. Hopefully, if h is blood pressure is better and after he receives dialysis and likely he can be discharged home.
[2017-06-16] MEDS ORDERED: Amlodipine 5 MG TAB PO SCH (02:30)
[2017-06-16 05:00] LABS: #Basophils 0.1 thou/uL (0.0-0.2); #Eosinphils 0.3 thou/uL (0.0-0.7); #Monocytes 0.4 thou/uL (0.11-0.59); #Neutrophils 3.2 thou/uL (1.40-6.50); %Basophils 1.7 % (0.0-1.0); %Eosinophils 5.4 % (0.0-10.0); %Lymphocytes 19.8 % (21.0-51.0); %Neutrophils 65.1 % (42.0-75.0); Hemoglobin 10.1 g/dL (14.0-18.0); Mean Corpuscular HGB CONC 33.1 g/dL (32.0-36.0); Mean Corpuscular Hemoglobin 30.4 pg (27.0-31.0); Mean Corpuscular Volume 91.7 fl (80.0-94.0); Mean Platelet Volume 9.1 fL (7.4-10.4); Platelet Count 175 thou/uL (130-400); RBC Distribution Width 17.2 % (11.5-14.5); Red Blood Cell (RBC) Count 3.33 mill/uL (4.70-6.10)
[2017-06-16 05:11] LABS: Anion Gap 19 mmol/L (10-20); BUN (Urea Nitrogen) 63 mg/dL (8.9-20.6); Calc. Creatinine Clearance 15 mL/min (70-130); Calcium 9.3 mg/dL (7.8-10.44); Carbon Dioxide 25 mmol/L (22-29); Cardiac Risk 3.2 (Less than 4.5); Chloride 99 mmol/L (98-107); Cholesterol 150 mg/dl (< 200 Desired); Estimated GFR-MDRD 6; Glucose 166 mg/dL (70-105); HDL Cholesterol 47 mg/dL (>60 Neg Risk); LDL Cholesterol, Calculated 91 mg/dL; Potassium 4.5 mmol/L (3.5-5.1); Sodium 138 mmol/L (136-145); Triglycerides 62 mg/dL (Less than 150)
[2017-06-16 05:16] LABS: Troponin I 0.148 ng/mL (< 0.028)
[2017-06-16] MEDS: Nitroglycerin 2% Ointment 1 INCH/1 GM Packet TOP SCH ×3 (05:49→14:32)
[2017-06-16] MEDS ORDERED: Aspirin 325 MG TAB PO SCH (08:00)
[2017-06-16] MEDS: hydrALAZINE 25 MG TAB PO SCH ×3 (09:30→20:15)
[2017-06-16] MEDS ORDERED: cloNIDine 0.1 MG TAB PO PRN (09:39)
--- NOTE | 2017-06-16 09:52 | CON ---
DATE OF CONSULTATION: 06/16/2017 NEPHROLOGY CONSULTATION REASON FOR CONSULTATION: End-stage renal disease, on maintenance hemodialysis. HISTORY OF PRESENTING ILLNESS: This is a very pleasant 42-year-old gentleman who presented to the [facility] with uncontrolled blood pressure. The patient is scheduled for dialysis on Sunday, and Sunday and was having a sharp chest pain. The patient at this time denies any nausea, vomiting , headache, numbness, tingling or weakness. PAST MEDICAL HISTORY: Significant for end-stage renal disease on hemodialysis on Sunday, , and Sunday; hypertension; hyperlipidemia; noncompliance; history of AV fistula; tunneled dialysis c atheter; history of amputation; history of cellulitis. SOCIAL HISTORY: No alcohol or IV drug use. FAMILY HISTORY: Negative for ESRD. HOME MEDICATIONS: List reviewed. ALLERGIES: Reviewed. REVIEW OF SYSTEMS: A 15-point review of systems was performed and was negative except for positives noted above. GENERAL: Weakness- HEAD: Headache- NECK: No swelling or lumps. NOSE: No epistaxis or discharge. EYES: No diplopia or pain. RESPIRATORY: Dyspnea- CARDIOVASCULAR: Chest pain- GASTROINTESTINAL: Nausea- /BALLISTIC TECHNICIAN: Hematuria- MUSCULOSKELETAL: No joint pain. NEUROPSYCHIATIC SYSTEMS: No suicidal ideation. No ideation. SKIN: Denies any rash or ulcer. CONSTITUTIONAL: No fever or chills. PHYSICAL EXAMINATION: GENERAL: Patient is awake, alert. VITAL SIGNS: Afebrile, pulse 92, breathing 16, blood pressure 170/91. HEAD/NECK: Normocephalic. Atraumatic. EYES: EOMI. No deformity. EARS: Clear. No ulcers. NOSE: Intact. No lesions. MOUTH: Clear. No discharge. THROAT: Clear. No exudate. LUNGS: Clear. No crackles. CARDIAC: S1, S2. No rub. ABDOMEN: Benign. BS+. GENITALIA/RECTUM: Plascencia absent. BACK/EXTREMITIES: Edema 0+ Ulcer- NEUROLOGICAL: Alert and motor intact. SKIN: Rash- Bruise- LYMPHATICS: Edema- Ulcer- LABORATORY DATA: Show creatinine 60, potassium 4.9. ASSESSMENT AND RECOMMENDATIONS: 1. Stage 6 chronic kidney disease, plan hemodialysis. 2. Hypertension, stable. 3. Anemia, stable. 4. Medications based on glomerular filtration rate are appropriate. Chest pain management per prima ry team.
[2017-06-16] MEDS: Carvedilol 3.125 MG TAB PO SCH ×2 (13:39→17:18)
[2017-06-16] MEDS: Calcium Acetate 667 MG CAP PO SCH ×3 (13:39→17:18)
[2017-06-16] MEDS: Amlodipine 10 MG TAB PO SCH (13:39)
[2017-06-16] MEDS: Heparin 5,000 UNITS/ML VIAL SC SCH ×3 (13:40→20:15)
[2017-06-16] MEDS ORDERED: Heparin 10,000 UNITS/ 10 ML VIAL ONE (14:36)
[2017-06-16] MEDS ORDERED: ALPRAZolam 0.25 MG TAB PO PRN (17:21)
--- NOTE | 2017-06-16 17:28 | PDOC.PN ---
- Subjective Encounter Start Date: 06/16/17 Encounter Start Time: 10:30 Patient seen and examined. No new complaints. No overnight events. Seen earlier during dialysis. No CP/SOB - Objective Resuscitation Status: Resuscitation Status FULL:Full Resuscitation MAR Reviewed: Yes Vital Signs & Weight: Vital Signs (12 hours) Temp Pulse Resp BP BP Pulse Ox 06/16/17 15:18 87 176/93 H 06/16/17 15:11 97.6 F 93 18 234/118 H 92 L 06/16/17 14:41 97.7 F 79 16 105/55 L 96 06/16/17 14:22 209/100 H 06/16/17 13:39 90 06/16/17 13:35 97.5 F L 90 18 228/108 H 97 06/16/17 08:44 90 168/77 H 06/16/17 08:00 97.9 F 90 18 06/16/17 07:25 97.9 F 90 18 195/94 H 93 L 06/16/17 07:00 195/94 H 06/16/17 05:49 209/102 H 06/16/17 05:40 84 209/102 H Weight Weight 259 lb 6.4 oz I&O: 06/15/17 06/16/17 06/17/17 06:59 06:59 06:59 Intake Total 360 Balance 360 Result Diagrams: 06/16/17 03:57 06/16/17 03:57 EKG Reviewed by me: Yes (Tele SR) Phys Exam - Physical Examination Constitutional: NAD Respiratory: no wheezing, no rhonchi Cardiovascular: RRR, no rub Gastrointestinal: soft, non-tender, positive bowel sounds Musculoskeletal: no edema Neurological: moves all 4 limbs Psychiatric: A&O x 3 Dx/Plan - Plan DVT proph w/SCDs IMPRESSION: 1. HTN urgency/Volume overload 2. ESRD on dialysis 3. Med noncompliance 4. Obesity BMI 31.6 5. HLD 6. Elevated troponin due to demand ischemia PLAN: * Add Lisinopril per Dr Che * Repeat dialysis in AM per Nephro * Resume home dose of Hydralazine * Cont Amlodipine * Cont Coreg (started this admission) * Cont to monitor Review of Systems - Review of Systems Constitutional: negative: fever, chills, sweats, weakness, malaise, other Cardiovascular: negative: chest pain, palpitations, orthopnea, paroxysmal nocturnal dyspnea, edema, light headedness, other Gastrointestinal: negative: Nausea, Vomiting, Abdominal Pain, Diarrhea, Constipation, Melena, Hematochezia, Other - Medications/Allergies Allergies/Adverse Reactions: Allergies Allergy/AdvReac Type Severity Reaction Status Date / Time No Known Drug Allergies Allergy Verified 06/16/17 01:03 Medications: Current Medications Acetaminophen (Tylenol) 650 mg PO Q4H PRN PRN Reason: Headache/Fever or Pain Alprazolam (Xanax) 0.25 mg PO BIDPRN PRN PRN Reason: Anxiety Amlodipine Besylate (Norvasc) 10 mg PO DAILY [facility] Last Admin: 06/16/17 13:39 Dose: 10 mg Calcium Acetate (Phoslo) 2,001 mg PO TID-[facility] Last Admin: 06/16/17 17:18 Dose: 2,001 mg Calcium Acetate (Phoslo) 667 mg PO BIDPRN PRN PRN Reason: SNACKS Carvedilol (Coreg) 3.125 mg PO BID-[facility] Last Admin: 06/16/17 17:18 Dose: 3.125 mg Clonidine (Catapres) 0.1 mg PO Q4H PRN PRN Reason: Systolic BP > 180 Last Admin: 06/16/17 14:30 Dose: 0.1 mg Heparin Sodium (Porcine) (Heparin) 5,000 units SC TID [facility] Last Admin: 06/16/17 14:27 Dose: Not Given Hydralazine HCl (Apresoline) 10 mg SLOW IVP Q4H PRN PRN Reason: Systolic BP > 180 Last Admin: 06/16/17 05:49 Dose: 10 mg Lisinopril (Zestril) 5 mg PO ONE [facility] Lisinopril (Zestril) 5 mg PO DAILY [facility] Non-Formulary Medication (Hydralazine Hcl [Hydralazine Hcl]) 100 mg PO TID [facility] Non-Formulary Medication (Sevelamer Hcl [Renagel]) 800 mg PO ASDIR [facility] Ondansetron HCl (Zofran Odt) 4 mg PO Q6H PRN PRN Reason: Nausea/Vomiting Ondansetron HCl (Zofran) 4 mg IVP Q6H PRN PRN Reason: Nausea/Vomiting Simvastatin (Zocor) 20 mg PO HS [facility] Tramadol HCl (Ultram) 50 mg PO Q6H PRN PRN Reason: Pain
[2017-06-16] MEDS ORDERED: Sevelamer Carbonate 800 MG TAB PO PRN (17:36)
[2017-06-16] MEDS ORDERED: Lisinopril 5 MG TAB PO SCH (17:45)
[2017-06-16] MEDS ORDERED: Atorvastatin Calcium 10 MG TAB PO SCH (21:00)
[2017-06-17 07:44] VITALS: BP 141/77; TEMP 98.2
[2017-06-17] MEDS ORDERED: Sevelamer Carbonate 800 MG TAB PO SCH (08:00)
[2017-06-17] MEDS: Calcium Acetate 667 MG CAP PO SCH (08:59)
[2017-06-17] MEDS: Heparin 5,000 UNITS/ML VIAL SC SCH (08:59)
[2017-06-17] MEDS ORDERED: Lisinopril 5 MG TAB PO SCH (09:00)
[2017-06-17] MEDS: Carvedilol 3.125 MG TAB PO SCH (09:45)
[2017-06-17] MEDS: hydrALAZINE 25 MG TAB PO SCH (09:45)
[2017-06-17] MEDS: Amlodipine 10 MG TAB PO SCH (09:48)
--- NOTE | 2017-06-17 11:30 | PRG ---
DATE OF SERVICE: 06/17/2017 SUBJECTIVE: This is a 42-year-old gentleman being seen for end-stage renal disease. Patient denies any nausea, vomiting or chest pain. PHYSICAL EXAMINATION: GENERAL: Patient is awake, alert. VITAL SIGNS: Afebrile, pulse 75, breathing 16, blood pressure 141/77. HEAD/NECK: Normocephalic. Atraumatic. EYES: EOMI. No deformity. EARS: Clear. No ulcers. NOSE: Intact. No lesions. MOUTH: Clear. No discharge. THROAT: Clear. No exudate. LUNGS: Clear. No crackles. CARDIAC: S1, S2. No rub. ABDOMEN: Benign. BS+. GENITALIA/RECTUM: Plascencia absent. BACK/EXTREMITIES: Edema 0+ Ulcer- NEUROLOGICAL: Alert and motor intact. SKIN: Rash- Bruise- LYMPHATICS: Edema- Ulcer- ASSESSMENT AND RECOMMENDATIONS: 1. Stage 6 chronic kidney disease. Continue hemodialysis. 2. Hypertension, stable. 3. Anemia, stable. 4. Medications based on glomerular filtration rate are appropriate. The patient will follow up with Dr. Johnson.
--- NOTE | 2017-06-17 12:54 | DIS ---
DATE OF DISCHARGE: 06/17/2017 DISCHARGE DISPOSITION: Home. FOLLOWUP: 1. Follow up with primary care physician at [facility] in 1 week. 2. Follow up with Nephrology, Dr. Johnson for maintenance hemodialysis. ALLERGIES: No known drug allergies. The patient was seen and examined on the day of discharge. Denies any new complaints. No chest pain , shortness of breath, palpitations. His blood pressure on the day of discharge is 141/77. DISCHARGE MEDICATIONS: 1. Carvedilol 3.125 mg twice a day. 2. Clonidine as needed. 3. Lisinopril 5 mg twice a day per Nephrology. Other home medications were resumed including amlodipine 10 mg daily, hydralazine 100 mg 3 times brianne y, Renagel, Zocor, aspirin, Xanax, and PhosLo. INPATIENT SQL MANAGER: Nephrology, Dr. Che. BRIEF HOSPITAL COURSE: Patient is a 42-year-old male with end-stage renal disease on hemodialysis on Sunday, , and Sunday, hypertension, and hyperlipidemia with medication noncompliance who presented to the hospital with chest discomfort. Please refer to the history and physical dated 06/03 for further details. The patient was admitted to the hospital with a diagnosis of hypertensive urgency with volume overloa d. His blood pressure was 243/132. His blood pressure improved after resuming his home medicine and hemodialysis. Carvedilol and lisinopril has been added to his regimen per Nephrology. He has been cleared by Nephrology for discharge. He will undergo hemodialysis on Sunday, , and Sunday . FINAL DIAGNOSES: 1. Chest discomfort secondary to hypertensive urgency and volume overload. His maximum troponin was 0.177. Troponin elevation was probably secondary to demand ischemia/elevated blood pressure. 2. End-stage renal disease on hemodialysis with noncompliance. 3. Medication noncompliance. 4. Obesity with body mass index of 31.6. 5. Hyperlipidemia. 6. Elevated CK at 287 on admission. Repeat CK as outpatient is recommended. 7. Chronic anemia of renal insufficiency. SIGNIFICANT LABORATORY DATA: Fasting lipid showed cholesterol 150, LDL 91, triglycerides 62, HDL 47. Plan of care was discussed with the patient in detail. He stated understanding.
== END 2017-06-17 10:38 | disposition home or self-care (01) ==
LOC: ERS 21:56 → 2SW 23:25
PROVIDERS: ADMIT Internal Medicine; ATTEND Internal Medicine
DX: I16.0 Hypertensive urgency (principal); E87.70 Fluid overload, unspecified; R07.89 Other chest pain; I12.0 Hypertensive chronic kidney disease with stage 5 chronic kidney disease or end stage renal disease; N18.6 End stage renal disease; E78.5 Hyperlipidemia, unspecified; R74.8 Abnormal levels of other serum enzymes; E66.9 Obesity, unspecified; Z68.31 Body mass index [BMI] 31.0-31.9, adult; D63.1 Anemia in chronic kidney disease; Z99.2 Dependence on renal dialysis; Z91.15 Patient's noncompliance with renal dialysis; Z91.14 Patient's other noncompliance with medication regimen; Z79.82 Long term (current) use of aspirin; Z79.899 Other long term (current) drug therapy
CPT/HCPCS: 36415; 71045; 80048; 80053; 80061; 82550; 82553; 83690; 83735; 84100; 84484; 85025; 90935; 93005; 94760; 96374; 96376; G0257; G0378; J0360; J1644

== ENCOUNTER 2018-01-17 11:35 | Emergency (ER) | payer OTHER ==
[2018-01-17 12:23] LABS: #Basophils 0.1 thou/uL (0.0-0.2); #Eosinphils 0.5 thou/uL (0.0-0.7); #Lymphocytes 1.2 thou/uL (1.20-3.40); #Monocytes 0.6 thou/uL (0.11-0.59); #Neutrophils 4.9 thou/uL (1.40-6.50); %Basophils 0.9 % (0.0-1.0); %Eosinophils 6.4 % (0.0-10.0); %Lymphocytes 16.4 % (21.0-51.0); %Monocytes 8.1 % (0.0-10.0); %Neutrophils 68.1 % (42.0-75.0); Mean Corpuscular HGB CONC 32.8 g/dL (32.0-36.0); Mean Corpuscular Hemoglobin 33.3 pg (27.0-31.0); Mean Platelet Volume 9.2 fL (7.4-10.4); Platelet Count 180 thou/uL (130-400); RBC Distribution Width 13.4 % (11.5-14.5); White Blood Cell (WBC) Count 7.2 thou/uL (4.8-10.8)
[2018-01-17 12:42] LABS: ALT (SGPT) 13 U/L (8-55); AST (SGOT) 17 U/L (5-34); Albumin 3.9 g/dL (3.5-5.0); Alkaline Phosphatase 126 U/L (40-150); Anion Gap 13 mmol/L (10-20); BUN (Urea Nitrogen) 13 mg/dL (8.9-20.6); Bilirubin, Total 0.5 mg/dL (0.2-1.2); Calc. Creatinine Clearance 0 mL/min (70-130); Calcium 9.8 mg/dL (7.8-10.44); Carbon Dioxide 32 mmol/L (22-29); Chloride 95 mmol/L (98-107); Estimated GFR-MDRD 13; Glucose 169 mg/dL (70-105); Potassium 3.2 mmol/L (3.5-5.1); Protein, Total 8.9 g/dL (6.0-8.3); Sodium 137 mmol/L (136-145)
--- NOTE | 2018-01-18 17:21 | EKG ---
Test Reason : Blood Pressure : / mmHG Vent. Rate : 089 BPM Atrial Rate : 089 BPM P-R Int : 150 ms QRS Dur : 108 ms QT Int : 426 ms P-R-T Axes : 051 -25 074 degrees QTc Int : 518 ms Normal sinus rhythm Biatrial enlargement Incomplete right bundle branch block Nonspecific ST and T wave abnormality Prolonged QT Abnormal ECG Confirmed by KISHAN NICHOLSON MD ([id number]), slot editor ROGER RIVER ([id number]) on 01/18/2018 5:20:42 PM Referred By: Confirmed By:KISHAN NICHOLSON MD
== END 2018-01-17 15:45 | disposition home or self-care (01) ==
LOC: ERS 11:35
DX: I10 Essential (primary) hypertension (principal); L97.219 Non-pressure chronic ulcer of right calf with unspecified severity; E78.5 Hyperlipidemia, unspecified; Z79.899 Other long term (current) drug therapy; Z79.82 Long term (current) use of aspirin
CPT/HCPCS: 80053; 85025; 93005

== ENCOUNTER 2018-01-24 10:58 | Emergency (ER) | payer OTHER | END 2018-01-24 12:52 | disposition home or self-care (01) | LOC: ERS 10:58 | DX: L01.00 Impetigo, unspecified (principal); I10 Essential (primary) hypertension; E78.5 Hyperlipidemia, unspecified; Z79.899 Other long term (current) drug therapy | CPT/HCPCS: 99281 ==

== ENCOUNTER 2018-01-28 00:13 | Inpatient (IN) | payer OTHER ==
[2018-01-28 01:37] LABS: #Basophils 0.1 thou/uL (0.0-0.2); #Eosinphils 0.6 thou/uL (0.0-0.7); #Lymphocytes 0.6 thou/uL (1.20-3.40); #Monocytes 0.6 thou/uL (0.11-0.59); #Neutrophils 9.9 thou/uL (1.40-6.50); %Basophils 0.5 % (0.0-1.0); %Eosinophils 4.8 % (0.0-10.0); %Monocytes 5.5 % (0.0-10.0); %Neutrophils 84.2 % (42.0-75.0); Hemoglobin 10.9 g/dL (14.0-18.0); Mean Corpuscular Hemoglobin 32.9 pg (27.0-31.0); Mean Corpuscular Volume 96.8 fL (78.0-98.0); Mean Platelet Volume 8.8 fL (7.4-10.4); Platelet Count 290 thou/uL (130-400); RBC Distribution Width 13.4 % (11.5-14.5); Red Blood Cell (RBC) Count 3.32 mill/uL (4.70-6.10); White Blood Cell (WBC) Count 11.7 thou/uL (4.8-10.8)
[2018-01-28 01:51] LABS: Base Excess-Venous 0.9 mmol/L (0 (+/- 2.5)); Bicarbonate (HCO3v) 22.5 mmol/L (1.0-85.0); Calcium, Ionized 0.81 mmol/L (1.12-1.32); Hemoglobin - Calc 11.2 g/dL (12.0-18.0); O2 Tension (PvO2) 64.2 mmHg (35.0-45.0); Potassium 3.9 mmol/L (3.4-4.7); T. Carbon Dioxide 23.3 mmol/L (1.0-85.0); pH (Venous) 7.545 (7.35-7.45); vO2 Saturation-calc 95.1 % (94-98)
[2018-01-28 01:58] LABS: ALT (SGPT) 11 U/L (8-55); AST (SGOT) 16 U/L (5-34); Albumin 3.4 g/dL (3.5-5.0); Alkaline Phosphatase 142 U/L (40-150); Anion Gap 23 mmol/L (10-20); BUN (Urea Nitrogen) 76 mg/dL (8.9-20.6); Bilirubin, Total 0.7 mg/dL (0.2-1.2); Calc. Creatinine Clearance 0 mL/min (70-130); Calcium 8.9 mg/dL (7.8-10.44); Carbon Dioxide 22 mmol/L (22-29); Chloride 95 mmol/L (98-107); Estimated GFR-MDRD 4; Globulin 4.6 g/dL (2.4-3.5); Glucose 127 mg/dL (70-105); Potassium 4.3 mmol/L (3.5-5.1); Sodium 136 mmol/L (136-145)
[2018-01-28] MEDS ORDERED: Clindamycin/D5W 900 mg/50 ml Premix Bag ONE (02:18)
[2018-01-28] MEDS ORDERED: Piperacillin/Tazobactam 4.5 GM VIAL ONE (02:18)
[2018-01-28] MEDS ORDERED: Vancomycin HCl 1.5 GM in Sodium Chloride 0.9% 250 ML 300 ML IVPB SCH ×2 (02:30→12:15)
[2018-01-28] MEDS ORDERED: Morphine 4 MG/ML VIAL ONE (03:52)
[2018-01-28] MEDS ORDERED: Sodium Chloride 0.9% 1,000 ML IV SCH (05:48)
[2018-01-28] MEDS ORDERED: Acetaminophen 325 MG TAB PO PRN ×2 (05:48→07:43)
[2018-01-28] MEDS ORDERED: Ondansetron PF 4 MG/2 ML Vial IVP PRN (05:48)
[2018-01-28] MEDS ORDERED: Ondansetron ODT 4 MG TAB SL PRN (05:48)
[2018-01-28] MEDS ORDERED: Senokot S 8.6-50 MG TAB PO PRN (07:43)
[2018-01-28] MEDS ORDERED: Bisacodyl 5 MG TAB PO PRN (07:43)
[2018-01-28] MEDS ORDERED: ALPRAZolam 1 MG TAB PO PRN (07:54)
[2018-01-28] MEDS: Carvedilol 3.125 MG TAB PO SCH ×2 (08:04→17:24)
[2018-01-28] MEDS: hydrALAZINE 25 MG TAB PO SCH ×3 (08:04→21:44)
[2018-01-28] MEDS: Heparin 5,000 UNITS/ML VIAL SC SCH ×3 (08:05→21:45)
[2018-01-28] MEDS: Amlodipine 10 MG TAB PO SCH (08:05)
--- NOTE | 2018-01-28 12:09 | CON ---
DATE OF CONSULTATION: 01/28/2018 CONSULTING PHYSICIAN: Dr. Oconnor. REASON FOR CONSULTATION: End-stage renal disease evaluation and care. REASON FOR ADMISSION: Cellulitis. HISTORY OF PRESENT ILLNESS: This is a 42-year-old -[place] male with history of end-stage renal disease, hypertension, noncompliance, and hyperlipidemia who came to the hospital with cellulitis and is being admitted and Nephrology consult for maintenance hemodialysis. He is on dialysis Sunday , and Sunday. His potassium is 3.9, BUN is 76. No nausea, vomiting, no chest pain. PAST MEDICAL HISTORY: Positive for end-stage renal disease, hypertension, hyperlipidemia, noncompliance. PAST SURGICAL HISTORY: AV fistula placement, knee amputations. HOME MEDICATIONS: Include Coreg, PhosLo, amlodipine, alprazolam, ____. ALLERGIES: No known drug allergies. SOCIAL HISTORY: No smoking, alcohol or illicit drug abuse. FAMILY HISTORY: Positive for hypertension. REVIEW OF SYSTEMS: The following complete review of systems was negative, unless otherwise mentioned in the HPI or below: Constitutional: Weight loss or gain, ability to conduct usual activities. Skin: Rash, itching. Eyes: Double vision, pain. ENT/Mouth: Nose bleeding, neck stiffness, pain, tenderness. Cardiovascular: Palpitations, dyspnea on exertion, orthopnea. Respiratory: Shortness of breath, wheezing, cough, hemoptysis, fever or night sweats. Gastrointestinal: Poor appetite, abdominal pain, heartburn, nausea, vomiting, constipation, or diarrhea. Genitourinary: Urgency, frequency, dysuria, nocturia. Musculoskeletal: Pain, swelling. Neurologic/Psychiatric: Anxiety, depression. Allergy/Immunologic: Skin rash, bleeding tendency. PHYSICAL EXAMINATION: GENERAL: This is a well-built male, in no apparent distress. VITAL SIGNS: Temperature 98.3, pulse 74, respiratory ____, blood pressure 129/ 71. HEENT: Atraumatic, normocephalic. Oral mucosa is moist. NECK: Supple, no masses. CARDIOVASCULAR: S1, S2. Rate and rhythm regular. RESPIRATORY: Clear. GASTROINTESTINAL: Abdomen is soft. MUSCULOSKELETAL: 1+ edema. DERMATOLOGIC: No skin rash. NEUROLOGIC: Alert, awake. PSYCHIATRIC: Mood and affect. LABORATORY DATA: Hemoglobin is 10.9, potassium is 3.9, BUN is 76, creatinine is 14.8. ASSESSMENT AND PLAN: 1. End-stage renal disease. We will continue on hemodialysis as tolerated. 2. Fluid overload - will remove fluid with HD as tolerated. 3. Edema. 4. Hypertension. 5. Anemia, mild. 6. Noncompliance. We will career guidance counselor. 7. We will continue on dialysis as tolerated. MTDD
[2018-01-28] MEDS ORDERED: HOLD VANCOMYCIN FOR LEVEL >20 FS SCH (12:15)
[2018-01-28] MEDS ORDERED: Vancomycin HCl 1.25 GM in Sodium Chloride 0.9% 250 ML 250 ML IVPB SCH (12:15)
[2018-01-28] MEDS ORDERED: Vancomycin HCl 1 GM in Premix Bag 1 BAG IVPB SCH ×2 (12:15→21:00)
[2018-01-28 12:42] LABS: Troponin I 0.287 ng/mL (< 0.028)
[2018-01-28] MEDS: cefTRIAXone\\ROCEPHIN 1 GM in Sodium Chloride 0.9% 100 ML IVPB SCH (13:03)
[2018-01-28] MEDS: Atorvastatin Calcium 10 MG TAB PO SCH (21:44)
--- NOTE | 2018-01-28 22:27 | HP ---
CHIEF COMPLAINT: Generalized body aches and pains. HISTORY OF PRESENT ILLNESS: Patient is a 42-year-old male with past medical history of end-stage rl al disease on dialysis and hypertension who presented to the hospital with complaints of generalized body aches and pains, chest pain, weakness, diaphoresis which has been going on for the past 2-3 days . The patient stated that he came into the ER a few days earlier for some drainage around to his mira ateral forearm area. Patient does not know if these were bites; however, he was prescribed some oral antibiotics which made the patient nauseated, so he did not take any oral antibiotics at all. Annelise nt states that he has been taking his medications as prescribed. He denies any fevers or chills, but states that he occasionally gets chest pain and shortness of breath and has been feeling weak and ve ry dizzy. PAST MEDICAL HISTORY: History of end-stage renal disease on dialysis, history of hypertension. He h as hyperlipidemia. PAST SURGICAL HISTORY: He has AV fistula placed. He also has a left elbow ceujo-vua-kaih amputation . ALLERGIES: He has got no known drug allergies. SOCIAL HISTORY: He is single. No children. Does not smoke, drink or do any recreational drug use. MEDICATIONS: The patient states his medications are as of the following: He takes carvedilol 3.125 b.i.d., Zocor 20 mg at bedtime, hydralazine 100 mg t.i.d., calcium acetate 667 mg p.o. 3 times a day, aspirin 81 mg daily, amlodipine 10 mg daily. Alprazolam 2 mg b.i.d., sevelamer 800 mg 2 tabs with m eals and 1 tab with snack. FAMILY HISTORY: Significant for hypertension and diabetes. PHYSICAL EXAMINATION: VITAL SIGNS: The patient's temperature 97.8, 90, 18, 95% on room air. He is 147/71. GENERAL: He is awake, alert, oriented x3, does not appear in distress. CARDIOVASCULAR: S1, S2 present. No murmurs, rubs or gallops. LUNGS: Clear to auscultation, rhonchi or wheezes noted. ABDOMEN: Soft, nontender. Bowel sounds are present x2. EXTREMITIES: He does have a left stump wound, which appears to be chronic and has been scarred over on the right posterior aspect of his leg. He does have an old healed scar. He does have two about q uarter size lesions to both right and left forearms, which appear to have some pustular drainage that has been noted. He also has some induration; however, it is very, very hard and not soft at all melissa t will be drainable. Mild erythema around both hands. NEUROLOGIC: No focal deficits noted. SKIN: As mentioned earlier. LABORATORY DATA: Labs are as following. WBCs of 11.7, hemoglobin of 10.8, hematocrit of 32.2, platel ets of 290. Chemistry: Sodium of 131, potassium of 3.0. Potassium of 3.9, BUN of 76, creatinine 14 .8, glucose of 127. His troponin is mildly elevated. EKG no acute changes were noted on EKG. ASSESSMENT AND PLAN: The patient is a very pleasant 42-year-old male who presents to the hospital wi th complaints of generalized body aches and pains and chest pain. 1. Cellulitis. He does have some mild erythema to bilateral forearm area, which has 0some pustular drainage. I have cultured both ends and has sent it to the lab. We will start the patient on broad spectrum antibiotics for now and see if these nodules will start sliding or will start draining more fluid. He does have significant pain upon palpation around that area. 2. The patient has these vague symptoms of just a pain in his chest, some diaphoresis and shortness of breath. He had his last stress test in 2013, which was negative. Given his history of hypertensio n, end-stage renal disease, I would transfer him to telemetry and do a stress test on him tomorrow. In EKG, he did not have any significant changes in EKG. 3. End-stage renal disease. The patient is on dialysis. We will consult Nephrology. 4. Hypertension. The patient's blood pressure was really high. We will continue the patient's home medications. 5. Deep venous thrombosis prophylaxis. We will put patient on subcu heparin.
[2018-01-29] MEDS: Ondansetron PF 4 MG/2 ML Vial SLOW IVP PRN (01:15)
[2018-01-29 06:13] LABS: #Eosinphils 0.6 thou/uL (0.0-0.7); #Lymphocytes 0.8 thou/uL (1.20-3.40); #Monocytes 0.6 thou/uL (0.11-0.59); %Basophils 0.6 % (0.0-1.0); %Eosinophils 7.4 % (0.0-10.0); %Lymphocytes 9.8 % (21.0-51.0); %Monocytes 7.3 % (0.0-10.0); %Neutrophils 74.8 % (42.0-75.0); Hemoglobin 10.5 g/dL (14.0-18.0); Mean Corpuscular HGB CONC 33.8 g/dL (32.0-36.0); Mean Corpuscular Hemoglobin 32.9 pg (27.0-31.0); Mean Corpuscular Volume 97.4 fL (78.0-98.0); Mean Platelet Volume 8.7 fL (7.4-10.4); Platelet Count 275 thou/uL (130-400); RBC Distribution Width 13.4 % (11.5-14.5); Red Blood Cell (RBC) Count 3.18 mill/uL (4.70-6.10)
[2018-01-29 06:28] LABS: Anion Gap 23 mmol/L (10-20); BUN (Urea Nitrogen) 85 mg/dL (8.9-20.6); Calc. Creatinine Clearance 10 mL/min (70-130); Calcium 8.7 mg/dL (7.8-10.44); Carbon Dioxide 20 mmol/L (22-29); Chloride 96 mmol/L (98-107); Estimated GFR-MDRD 4; Glucose 108 mg/dL (70-105); Potassium 4.9 mmol/L (3.5-5.1); Sodium 134 mmol/L (136-145)
[2018-01-29 07:04] LABS: Troponin I 0.236 ng/mL (< 0.028)
[2018-01-29 07:10] LABS: CKMB 7.5 ng/mL (0-6.6)
--- NOTE | 2018-01-29 09:57 | PRG ---
Patient Name: NICHOLAS DUBOIS Date of service: 01/29/2018 Subjective: Patient was seen and examined at bedside and overnight events noted. Patient denies any shortness of breath or chest pain or palpitation. No history of nausea or vomiting or diarrhea or fever or chills or cramps. Objective: General: This is a well-built male in no apparent distress. Vital signs: Temperature 97.4, pulse 87, respiratory rate 18, blood pressure 127/53. HEENT: Atraumatic, normocephalic. Oral mucosa is moist. Neck: Supple. Cardiovascular: S1 S2 heard. Rate and rhythm regular. Respiratory: Clear to auscultation. Gastrointestinal: Abdomen is soft. Musculoskeletal: No tenderness. No edema. Dermatologic: No skin rash. Neurologic: Alert and awake and oriented X3. No focal neurologic deficits. Moving all the extremit ies. Psychiatric: Mood and affect normal. LABORATORY DATA: Potassium is 4.9, BUN 85, creatinine 16.2. ASSESSMENT AND PLAN: 1. End-stage renal disease. Continue dialysis as tolerated. 2. Edema, remove fluid. 3. Hypertension. Continue dialysis Sunday, , and Sunday.
[2018-01-29] MEDS: hydrALAZINE 25 MG TAB PO SCH ×4 (10:40→21:34)
[2018-01-29] MEDS: Heparin 5,000 UNITS/ML VIAL SC SCH ×3 (10:40→21:34)
[2018-01-29] MEDS: Amlodipine 10 MG TAB PO SCH (11:08)
[2018-01-29] MEDS: Carvedilol 3.125 MG TAB PO SCH ×2 (11:09→18:39)
[2018-01-29] MEDS ORDERED: Heparin 1,000 UNITS/ML VIAL ONE (11:11)
[2018-01-29] MEDS: cefTRIAXone\\ROCEPHIN 1 GM in Sodium Chloride 0.9% 100 ML IVPB SCH (12:27)
[2018-01-29 13:26] LABS: Vancomycin, Random 15.1 ug/mL (See Comment)
[2018-01-29 14:42] LABS: Vancomycin, Random 15.8 ug/mL (See Comment)
--- NOTE | 2018-01-29 16:45 | NM ---
CARDIAC SPECT: CLINICAL HISTORY: 42-year-old female with chest pain, end-stage renal disease, hypertension, and dyslipidemia. TECHNIQUE: A myocardial perfusion scan was performed using the single isotope one day protocol with technetium-9 9m sestamibi. 9 mCi were injected intravenously for the rest exam followed by 32 mCi for the stress e xam. FINDINGS: Homogeneous tracer distribution is seen in the myocardial segments on the post stress images. A defec t in the inferolateral wall on the nonattenuation corrected stress and rest images resolves on the at tenuation correction images. GATED SPECT LVEF: 43%. WALL MOTION EXAM: Global hypokinesis. IMPRESSION: No evidence of reversible ischemia. POS: OFF
[2018-01-29] MEDS: Vancomycin HCl 750 MG in Sodium Chloride 0.9% 250 ML 250 ML IVPB SCH (16:50)
[2018-01-29] MEDS: Atorvastatin Calcium 10 MG TAB PO SCH (21:34)
--- NOTE | 2018-01-30 08:27 | PDOC.PN ---
- Subjective Encounter Start Date: 01/29/18 - Objective Resuscitation Status - Order Detail: 01/29/18 12:26 Resuscitation Status Routine Resuscitation Status: FULL: Full Resuscitation Discussed with: per previous MD order Vital Signs & Weight: Vital Signs (12 hours) Temp Pulse Resp BP BP Pulse Ox 01/30/18 07:55 97.2 F L 83 16 192/95 H 01/30/18 03:15 99.0 F 89 20 139/65 98 Weight Admit Weight 268 lb 11.896 oz Weight 259 lb 3.2 oz I&O: 01/29/18 01/30/18 01/31/18 06:59 06:59 06:59 Intake Total 480 970 Output Total 4000 Balance 480 -5756 Result Diagrams: 01/29/18 05:40 01/29/18 05:40 Dx/Plan - Plan * .
[2018-01-30] MEDS: hydrALAZINE 25 MG TAB PO SCH ×3 (08:41→18:18)
[2018-01-30] MEDS: Amlodipine 10 MG TAB PO SCH (08:42)
[2018-01-30] MEDS: Carvedilol 3.125 MG TAB PO SCH ×2 (08:42→16:26)
[2018-01-30] MEDS: Heparin 5,000 UNITS/ML VIAL SC SCH ×3 (08:43→20:53)
[2018-01-30] MEDS: Calcium Acetate 667 MG CAP PO SCH ×2 (12:02→16:26)
--- NOTE | 2018-01-30 16:29 | PRG ---
DATE OF SERVICE: 01/30/2018 SUBJECTIVE: Patient was seen and examined at bedside and overnight events noted. Patient denies any shortness of breath or chest pain or palpitation. No history of nausea or vomiting or diarrhea or fever or chills or cramps. OBJECTIVE: GENERAL: This is an obese male, in no acute distress. VITAL SIGNS: Temperature 97.2. Heart rate 80. Respiratory rate 16. Blood pressure 134/64. HEENT: Atraumatic, normocephalic. Oral mucosa is moist NECK: Supple. CARDIOVASCULAR: S1, S2 heard. Rate and rhythm regular. RESPIRATORY: Clear to auscultation. GASTROINTESTINAL: Abdomen is soft. MUSCULOSKELETAL: No tenderness. No edema. DERMATOLOGIC: No skin rash. NEUROLOGIC: Alert and awake and oriented X3. No focal neurologic deficits. Moving all the extremities. PSYCHIATRIC: Mood and affect normal. LABORATORY DATA: No labs drawn. ASSESSMENT: 1. End-stage renal disease. Continue dialysis. 2. . 3. Hypertension. 4. Anemia. We will monitor. PLAN: Continue dialysis Sunday, , and Sunday. Job ID: [id number]
[2018-01-30] MEDS ORDERED: cloNIDine 0.1 MG TAB PO PRN (18:43)
[2018-01-30] MEDS: Atorvastatin Calcium 10 MG TAB PO SCH (20:53)
--- NOTE | 2018-01-31 04:01 | CON ---
DATE OF CONSULTATION: 01/30/2018 HISTORY OF PRESENT ILLNESS: Mr. Wright is a 42-year-old man with history of end-stage renal disease, dialysis dependent. The patient was admitted 2 days previously with generalized body aches, pains, and weakness. Incidentally, he was found also with some nodular lesions in the bilateral forearm with erythema of the overlying skin consistent with acute cellulitis. Antibiotic therapy was initiated yesterday. I was asked to evaluate the patient today for possible incision and drainage of the bilateral forearm soft tissue infections. At the time of my evaluation, the patient has just completed his breakfast. He reports no fevers or chills. PAST MEDICAL HISTORY: Significant for hemodialysis dependent end-stage renal disease, hyperlipidemia, and essential hypertension. PAST SURGICAL HISTORY: Significant for left [id number]-[id number] amputation and AV fistula placement. ALLERGIES: THE PATIENT HAS NO KNOWN DRUG ALLERGIES. REVIEW OF SYSTEMS: A 10-point review of systems is essentially unremarkable except for as stated in the past medical history and chief complaint. PHYSICAL EXAMINATION: GENERAL: This revealed a 42-year-old normally developed man, who is coherent, interactive, and appears stated age. The patient is alert and oriented x3. He appeared to be in no acute distress at the time of my evaluation. VITAL SIGNS: Includes blood pressure 134/65, pulse 60, respiratory rate is 18, temperature 97.2 degrees Fahrenheit, and oxygen saturation 95% on room air. HEART: Reveals regular rate and rhythm. LUNGS: Clear to auscultation bilaterally. Breathing regular and nonlabored. ABDOMEN: Soft, nontender, and nondistended. EXTREMITIES: There is 2+ bilateral radial and right pedal pulse present. Left ovgke-mpu-lwoz amputation stump is intact, although there is opening in the lateral edge of the wound without any purulence or drainage present. Bilateral forearms on the other hand had approximately 2 x 3 cm nodular lesion with denuded overlying skin. This nodular mass is firm, no significant flocculence. There is tenderness with palpation. IMPRESSION: Bilateral forearm cellulitis, no flocculence to suggest abscess formation. PLAN: Warm compresses to bilateral forearm, cellulitic lesions. The patient would be made n.p.o. after midnight in anticipation of incision and drainage if clinical examination indicates abscesses at that time. Above findings and plan discussed with the patient, who indicates understanding of the information given. Thank you again, Dr. Fallon, for allowing me the opportunity to participate in the care of this patient. Job ID: [id number]
[2018-01-31] MEDS: Carvedilol 3.125 MG TAB PO SCH ×2 (05:51→18:11)
[2018-01-31] MEDS: Ondansetron PF 4 MG/2 ML Vial SLOW IVP PRN (07:36)
[2018-01-31] MEDS: hydrALAZINE 25 MG TAB PO SCH ×3 (07:39→20:06)
[2018-01-31] MEDS: Heparin 5,000 UNITS/ML VIAL SC SCH ×3 (07:39→20:07)
[2018-01-31 10:16] LABS: Vancomycin, Random 12.8 ug/mL (See Comment)
[2018-01-31] MEDS ORDERED: Heparin 1,000 UNITS/ML VIAL ONE (11:11)
--- NOTE | 2018-01-31 11:21 | PRG ---
DATE OF SERVICE: 01/31/2018 SUBJECTIVE: Patient was seen and examined at bedside and overnight events noted. Patient denies any shortness of breath or chest pain or palpitation. No history of nausea or vomiting or diarrhea or fever or chills or cramps. OBJECTIVE: GENERAL: This is an obese male, in no acute distress. VITAL SIGNS: Temperature 97.8. Heart rate 83. Respiratory rate 18. Blood pressure 196/76. HEENT: Atraumatic, normocephalic. Oral mucosa is moist. NECK: Supple. CARDIOVASCULAR: S1, S2 heard. Rate and rhythm regular. RESPIRATORY: Clear to auscultation. GASTROINTESTINAL: Abdomen is soft. MUSCULOSKELETAL: No tenderness. No edema. DERMATOLOGIC: No skin rash. NEUROLOGIC: Alert and awake and oriented X3. No focal neurologic deficits. Moving all the extremities. PSYCHIATRIC: Mood and affect normal. LABORATORY DATA: Calcium is 4.9, BUN is 85, creatinine is 6.2. ASSESSMENT AND PLAN: 1. End-stage renal disease. Continue dialysis on Sunday, , and Sunday. 2. Edema, . 3. Hypertension. 4. Anemia. Plan is to continue dialysis on Sunday, , and Sunday as tolerated. Job ID: [id number]
--- NOTE | 2018-01-31 11:53 | PRG ---
DATE OF SERVICE: 01/31/2018 SUBJECTIVE: The patient complains of continued forearm tenderness where nodules are present, though he denies fevers or chills and denies increase of pain. The patient verbalized no further complaints to us. OBJECTIVE: VITAL SIGNS: Blood pressure 187/95, heart rate 83, respirations 18, O2 saturations 97%, and temperature 97.8. GENERAL: No acute distress. Alert and oriented x3. HEART: Regular rate and rhythm. No murmurs. LUNGS: Clear to auscultation bilaterally. Equal chest rise. ABDOMEN: Soft, nontender. Normal bowel sounds. EXTREMITIES: Pulses equal bilaterally. Left below knee amputation. Bilateral 2 x 3 cm nodular lesion on forearms with denuded overlying skin, slightly softer than yesterday's exam, but still firm. No fluctuance. Tender to palpation. LABORATORY DATA: No significant laboratory data for today. IMPRESSION: Bilateral forearm cellulitis, minimal fluctuance. PLAN: Continue warm compresses to bilateral forearm lesions. We will get soft tissue ultrasound of lesions to evaluate for abscess. We will give the patient diet today with plans of n.p.o. at midnight for possible incision and drainage tomorrow if clinical exam indicates abscess or soft tissue ultrasound indicates abscess. This patient was seen and evaluated by Dr. Potts on morning rounds. The patient verbalized understanding and was in agreement with plan. Job ID: [id number]
[2018-01-31] MEDS: Amlodipine 10 MG TAB PO SCH (13:38)
[2018-01-31] MEDS ORDERED: oxyCODONE 5 MG TAB PO PRN (14:17)
--- NOTE | 2018-01-31 14:18 | PDOC.PN ---
- Subjective Encounter Start Date: 01/31/18 Encounter Start Time: 11:15 Subjective: pt in dialysis complains of pain to his lower ext - Objective Resuscitation Status - Order Detail: 01/29/18 12:26 Resuscitation Status Routine Resuscitation Status: FULL: Full Resuscitation Discussed with: per previous MD order Vital Signs & Weight: Vital Signs (12 hours) Temp Pulse Resp BP BP Pulse Ox 01/31/18 13:38 85 168/79 H 01/31/18 13:35 98.2 F 85 18 169/79 H 94 L 01/31/18 08:00 97.8 F 83 18 187/95 H 97 01/31/18 07:39 85 01/31/18 04:00 97.9 F 85 20 96 Weight Admit Weight 268 lb 11.896 oz Weight 276 lb I&O: 01/30/18 01/31/18 02/01/18 06:59 06:59 06:59 Intake Total 970 1200 Output Total 4000 Balance -3030 1200 Result Diagrams: 01/29/18 05:40 01/29/18 05:40 Phys Exam - Physical Examination Respiratory: no wheezing, no rales, no rhonchi, wheezing present, clear to auscultation bilateral Cardiovascular: RRR, no significant murmur, no rub, gallop, irregular Gastrointestinal: soft, non-tender, no distention, positive bowel sounds Musculoskeletal: no edema, pulses present, edema present Neurological: non-focal, normal sensation, moves all 4 limbs Deviation from normal: pt has dollar size nodules to bilateral extensor forearm -: right posterior calf area has old healed wound Dx/Plan (1) Cellulitis Code(s): L03.90 - CELLULITIS, UNSPECIFIED Status: Acute (2) Chest pain in adult Code(s): R07.9 - CHEST PAIN, UNSPECIFIED Status: Acute (3) End stage renal failure on dialysis Code(s): N18.6 - END STAGE RENAL DISEASE; Z99.2 - DEPENDENCE ON RENAL DIALYSIS Status: Chronic Comment: HD per Renal service, monitor clinical trend - Plan will continue abx, cx indicated mrsa -: sugery to i&d extensor forearm lesions -: stress test negative * . Review of Systems - Review of Systems Respiratory: negative: Cough, Dry, Shortness of Breath, Hemoptysis, SOB with Excertion, Pleuritic Pain, Sputum, Wheezing Cardiovascular: negative: chest pain, palpitations, orthopnea, paroxysmal nocturnal dyspnea, edema, light headedness, other Gastrointestinal: negative: Nausea, Vomiting, Abdominal Pain, Diarrhea, Constipation, Melena, Hematochezia, Other Genitourinary: negative: Dysuria, Frequency, Incontinence, Hematuria, Retention , Other - Medications/Allergies Allergies/Adverse Reactions: Allergies Allergy/AdvReac Type Severity Reaction Status Date / Time No Known Drug Allergies Allergy Verified 01/28/18 05:52 Medications: Current Medications Acetaminophen (Tylenol) 650 mg PO Q4H PRN PRN Reason: Headache/Fever/Mild Pain (1-3) Alprazolam (Xanax) 2 mg PO BID PRN PRN Reason: Anxiety Last Admin: 01/29/18 01:15 Dose: 2 mg Amlodipine Besylate (Norvasc) 10 mg PO DAILY [facility] Last Admin: 01/31/18 13:38 Dose: 10 mg Aspirin (Aspirin Chewable) 81 mg PO DAILY [facility] Last Admin: 01/31/18 13:39 Dose: 81 mg Atorvastatin Calcium (Lipitor) 10 mg PO HS [facility] Last Admin: 01/30/18 20:53 Dose: 10 mg Bisacodyl (Dulcolax) 10 mg PO DAILYPRN PRN PRN Reason: Constipation Calcium Acetate (Phoslo) 667 mg PO ASDIR [facility] Last Admin: 01/30/18 16:26 Dose: 667 mg Carvedilol (Coreg) 3.125 mg PO BID-WM [facility] Last Admin: 01/31/18 05:51 Dose: 3.125 mg Clonidine (Catapres) 0.1 mg PO Q6H PRN PRN Reason: SBP > 180, DBP > 100 Heparin Sodium (Porcine) (Heparin) 5,000 units SC TID [facility] Last Admin: 01/31/18 07:39 Dose: Not Given Hydralazine HCl (Apresoline) 100 mg PO TID [facility] Last Admin: 01/31/18 07:39 Dose: Not Given Vancomycin HCl 1.5 gm/ Sodium (Chloride) 300 mls @ 200 mls/hr IVPB WILLCALL [facility] Vancomycin HCl 1.25 gm/ Sodium (Chloride) 250 mls @ 166.667 mls/hr IVPB WILLCALL [facility] Vancomycin HCl 1 gm/ Device 200 mls @ 200 mls/hr IVPB WILLCALL [facility] Last Admin: 01/31/18 11:54 Dose: 200 mls Vancomycin HCl 750 mg/ Sodium (Chloride) 250 mls @ 250 mls/hr IVPB [facility]CALL [facility] Last Admin: 01/29/18 16:50 Dose: 250 mls Miscellaneous Medication (Pharmacy To Dose) 1 each IVPB PRN PRN PRN Reason: Pharmacy to dose Hold Vancomycin For (Level >20) 0 each FS .AT DIALYSIS [facility] Ondansetron HCl (Zofran) 4 mg SLOW IVP Q4H PRN PRN Reason: Nausea/Vomiting Last Admin: 01/31/18 07:36 Dose: 4 mg Oxycodone HCl (Oxycodone Ir) 5 mg PO Q4H PRN PRN Reason: Pain Senna/Docusate Sodium (Senokot S) 2 tab PO BID PRN PRN Reason: Constipation
--- NOTE | 2018-01-31 14:23 | PDOC.PN ---
- Subjective Encounter Start Date: 01/30/18 Encounter Start Time: 10:00 Subjective: pt up in bed no complains - Objective Resuscitation Status - Order Detail: 01/29/18 12:26 Resuscitation Status Routine Resuscitation Status: FULL: Full Resuscitation Discussed with: per previous MD order Vital Signs & Weight: Vital Signs (12 hours) Temp Pulse Resp BP BP Pulse Ox 01/31/18 13:38 85 168/79 H 01/31/18 13:35 98.2 F 85 18 169/79 H 94 L 01/31/18 08:00 97.8 F 83 18 187/95 H 97 01/31/18 07:39 85 01/31/18 04:00 97.9 F 85 20 96 Weight Admit Weight 268 lb 11.896 oz Weight 276 lb I&O: 01/30/18 01/31/18 02/01/18 06:59 06:59 06:59 Intake Total 970 1200 Output Total 4000 Balance -3030 1200 Result Diagrams: 01/29/18 05:40 01/29/18 05:40 Phys Exam - Physical Examination Neck: no nodes, no JVD, supple, full ROM Respiratory: no wheezing, no rales, no rhonchi, wheezing present, clear to auscultation bilateral Cardiovascular: RRR, no significant murmur, no rub, gallop, irregular Gastrointestinal: soft, non-tender, no distention, positive bowel sounds Musculoskeletal: no edema, pulses present, edema present Deviation from normal: bilateral dollar size lesion on extensor forearm Dx/Plan (1) Cellulitis Code(s): L03.90 - CELLULITIS, UNSPECIFIED Status: Acute (2) Chest pain in adult Code(s): R07.9 - CHEST PAIN, UNSPECIFIED Status: Acute (3) End stage renal failure on dialysis Code(s): N18.6 - END STAGE RENAL DISEASE; Z99.2 - DEPENDENCE ON RENAL DIALYSIS Status: Chronic Comment: HD per Renal service, monitor clinical trend - Plan surgery consulted, since lesion are now soft for I&D -: stress test negative -: will continue dialysis * . Review of Systems - Review of Systems Respiratory: negative: Cough, Dry, Shortness of Breath, Hemoptysis, SOB with Excertion, Pleuritic Pain, Sputum, Wheezing Cardiovascular: negative: chest pain, palpitations, orthopnea, paroxysmal nocturnal dyspnea, edema, light headedness, other Gastrointestinal: negative: Nausea, Vomiting, Abdominal Pain, Diarrhea, Constipation, Melena, Hematochezia, Other - Medications/Allergies Allergies/Adverse Reactions: Allergies Allergy/AdvReac Type Severity Reaction Status Date / Time No Known Drug Allergies Allergy Verified 01/28/18 05:52 Medications: Current Medications Acetaminophen (Tylenol) 650 mg PO Q4H PRN PRN Reason: Headache/Fever/Mild Pain (1-3) Alprazolam (Xanax) 2 mg PO BID PRN PRN Reason: Anxiety Last Admin: 01/29/18 01:15 Dose: 2 mg Amlodipine Besylate (Norvasc) 10 mg PO DAILY [facility] Last Admin: 01/31/18 13:38 Dose: 10 mg Aspirin (Aspirin Chewable) 81 mg PO DAILY [facility] Last Admin: 01/31/18 13:39 Dose: 81 mg Atorvastatin Calcium (Lipitor) 10 mg PO HS [facility] Last Admin: 01/30/18 20:53 Dose: 10 mg Bisacodyl (Dulcolax) 10 mg PO DAILYPRN PRN PRN Reason: Constipation Calcium Acetate (Phoslo) 667 mg PO ASDIR [facility] Last Admin: 01/30/18 16:26 Dose: 667 mg Carvedilol (Coreg) 3.125 mg PO BID-WM [facility] Last Admin: 01/31/18 05:51 Dose: 3.125 mg Clonidine (Catapres) 0.1 mg PO Q6H PRN PRN Reason: SBP > 180, DBP > 100 Heparin Sodium (Porcine) (Heparin) 5,000 units SC TID [facility] Last Admin: 01/31/18 07:39 Dose: Not Given Hydralazine HCl (Apresoline) 100 mg PO TID [facility] Last Admin: 01/31/18 07:39 Dose: Not Given Vancomycin HCl 1.5 gm/ Sodium (Chloride) 300 mls @ 200 mls/hr IVPB WILLCALL [facility] Vancomycin HCl 1.25 gm/ Sodium (Chloride) 250 mls @ 166.667 mls/hr IVPB WILLCALL [facility] Vancomycin HCl 1 gm/ Device 200 mls @ 200 mls/hr IVPB WILLCALL [facility] Last Admin: 01/31/18 11:54 Dose: 200 mls Vancomycin HCl 750 mg/ Sodium (Chloride) 250 mls @ 250 mls/hr IVPB WILLCALL [facility] Last Admin: 01/29/18 16:50 Dose: 250 mls Miscellaneous Medication (Pharmacy To Dose) 1 each IVPB PRN PRN PRN Reason: Pharmacy to dose Hold Vancomycin For (Level >20) 0 each FS .AT DIALYSIS [facility] Ondansetron HCl (Zofran) 4 mg SLOW IVP Q4H PRN PRN Reason: Nausea/Vomiting Last Admin: 01/31/18 07:36 Dose: 4 mg Oxycodone HCl (Oxycodone Ir) 5 mg PO Q4H PRN PRN Reason: Pain Senna/Docusate Sodium (Senokot S) 2 tab PO BID PRN PRN Reason: Constipation
--- NOTE | 2018-01-31 17:27 | ULT ---
Yi SOFT TISSUE ULTRASOUND OF BILATERAL FOREARMS: 01/31/18 HISTORY: Bilateral forearm cellulitis, concern for abscess. FINDINGS/IMPRESSION: Sonographic evaluation of the soft tissues of the forearm is performed bilaterally. There is complex mass in the lateral aspect of the left forearm measuring about 4.5 cm and a 5.3 cm c omplex mass/fluid collection in the lateral aspect of the right forearm, suspicious for soft tissue a bscesses. POS: GAVINO
[2018-01-31] MEDS: Atorvastatin Calcium 10 MG TAB PO SCH (20:06)
[2018-02-01] MEDS: Ondansetron PF 4 MG/2 ML Vial SLOW IVP PRN (04:37)
[2018-02-01] MEDS: Carvedilol 3.125 MG TAB PO SCH ×2 (05:34→16:21)
[2018-02-01] MEDS: Heparin 5,000 UNITS/ML VIAL SC SCH ×3 (07:25→20:54)
[2018-02-01] MEDS: hydrALAZINE 25 MG TAB PO SCH ×3 (07:27→20:54)
[2018-02-01] MEDS: Amlodipine 10 MG TAB PO SCH (07:28)
[2018-02-01] MEDS ORDERED: Nitroglycerin 0.4 MG TAB (25 Tab Bottle) SL SCH (08:45)
[2018-02-01] MEDS ORDERED: Midazolam HCl 2 mg/2 ml Vial ONE (13:42)
[2018-02-01] MEDS ORDERED: Ketamine 50 MG/ML (10ML VIAL) ONE (13:42)
[2018-02-01] MEDS ORDERED: Bupivacaine HCl 0.5%/Epinephrine 1:200,000/PF 30 ml Vial ONE (14:21)
[2018-02-01] MEDS ORDERED: HYDROcodone/Acetaminophen 10/325 mg Tablet PO PRN (14:46)
[2018-02-01] MEDS ORDERED: Promethazine HCl 25 MG/ML VIAL IM PRN (14:49)
[2018-02-01] MEDS ORDERED: PROPOFOL 200 MG/20 ML VIAL ONE (16:02)
--- NOTE | 2018-02-01 17:14 | PDOC.PN ---
- Subjective Encounter Start Date: 02/01/18 Encounter Start Time: 17:00 Subjective: pt up in bed no complains - Objective Resuscitation Status - Order Detail: 01/29/18 12:26 Resuscitation Status Routine Resuscitation Status: FULL: Full Resuscitation Discussed with: per previous MD order Vital Signs & Weight: Vital Signs (12 hours) Temp Pulse Resp BP BP Pulse Ox 02/01/18 16:21 89 185/74 H 02/01/18 16:17 97.6 F 89 20 185/74 H 94 L 02/01/18 11:01 97.7 F 82 20 169/92 H 93 L 02/01/18 07:28 87 185/114 H 02/01/18 07:27 87 02/01/18 07:20 98.5 F 87 16 185/114 H 98 Weight Admit Weight 268 lb 11.896 oz Weight 255 lb 4 oz I&O: 01/31/18 02/01/18 02/02/18 06:59 06:59 06:59 Intake Total 1200 Balance 1200 Result Diagrams: 01/29/18 05:40 01/29/18 05:40 Phys Exam - Physical Examination Neck: no nodes, no JVD, supple, full ROM Respiratory: no wheezing, no rales, no rhonchi, wheezing present, clear to auscultation bilateral Cardiovascular: RRR, no significant murmur, no rub, gallop, irregular Gastrointestinal: soft, non-tender, no distention, positive bowel sounds pt's bilateral forearms are wrapped Dx/Plan (1) Cellulitis Code(s): L03.90 - CELLULITIS, UNSPECIFIED Status: Acute (2) Chest pain in adult Code(s): R07.9 - CHEST PAIN, UNSPECIFIED Status: Acute (3) End stage renal failure on dialysis Code(s): N18.6 - END STAGE RENAL DISEASE; Z99.2 - DEPENDENCE ON RENAL DIALYSIS Status: Chronic Comment: HD per Renal service, monitor clinical trend - Plan s/p i&D of bilateral forearms -: previous cx indicated MRSA -: will continue vanco -: stress test negative * . Review of Systems - Review of Systems Respiratory: negative: Cough, Dry, Shortness of Breath, Hemoptysis, SOB with Excertion, Pleuritic Pain, Sputum, Wheezing Cardiovascular: negative: chest pain, palpitations, orthopnea, paroxysmal nocturnal dyspnea, edema, light headedness, other Gastrointestinal: negative: Nausea, Vomiting, Abdominal Pain, Diarrhea, Constipation, Melena, Hematochezia, Other - Medications/Allergies Allergies/Adverse Reactions: Allergies Allergy/AdvReac Type Severity Reaction Status Date / Time No Known Drug Allergies Allergy Verified 01/28/18 05:52 Medications: Current Medications Acetaminophen (Tylenol) 650 mg PO Q4H PRN PRN Reason: Headache/Fever/Mild Pain (1-3) Hydrocodone Bitart/Acetaminophen ([place] 10/325) 1 tab PO Q4H PRN PRN Reason: Moderate Pain 1-5 1ST LINE Hydrocodone Bitart/Acetaminophen ([place] 10/325) 2 tab PO Q4H PRN PRN Reason: Severe Pain 6-10 2ND LINE Alprazolam (Xanax) 2 mg PO BID PRN PRN Reason: Anxiety Last Admin: 01/29/18 01:15 Dose: 2 mg Amlodipine Besylate (Norvasc) 10 mg PO DAILY [facility] Last Admin: 02/01/18 07:28 Dose: 10 mg Aspirin (Aspirin Chewable) 81 mg PO DAILY [facility] Last Admin: 02/01/18 07:27 Dose: 81 mg Atorvastatin Calcium (Lipitor) 10 mg PO HS [facility] Last Admin: 01/31/18 20:06 Dose: 10 mg Bisacodyl (Dulcolax) 10 mg PO DAILYPRN PRN PRN Reason: Constipation Calcium Acetate (Phoslo) 667 mg PO ASDIR [facility] Last Admin: 01/30/18 16:26 Dose: 667 mg Carvedilol (Coreg) 3.125 mg PO BID-[facility] Last Admin: 02/01/18 16:21 Dose: 3.125 mg Clonidine (Catapres) 0.1 mg PO Q6H PRN PRN Reason: SBP > 180, DBP > 100 Heparin Sodium (Porcine) (Heparin) 5,000 units SC TID [facility] Last Admin: 02/01/18 16:20 Dose: 5,000 units Hydralazine HCl (Apresoline) 100 mg PO TID [facility] Last Admin: 02/01/18 16:21 Dose: 100 mg Vancomycin HCl 1.5 gm/ Sodium (Chloride) 300 mls @ 200 mls/hr IVPB WILLCALL [facility] Vancomycin HCl 1.25 gm/ Sodium (Chloride) 250 mls @ 166.667 mls/hr IVPB WILLCALL [facility] Vancomycin HCl 1 gm/ Device 200 mls @ 200 mls/hr IVPB [facility]CALL [facility] Last Admin: 01/31/18 11:54 Dose: 200 mls Vancomycin HCl 750 mg/ Sodium (Chloride) 250 mls @ 250 mls/hr IVPB [facility]CALL [facility] Last Admin: 01/29/18 16:50 Dose: 250 mls Miscellaneous Medication (Pharmacy To Dose) 1 each IVPB PRN PRN PRN Reason: Pharmacy to dose Hold Vancomycin For (Level >20) 0 each FS .AT DIALYSIS [facility] Ondansetron HCl (Zofran) 4 mg SLOW IVP Q4H PRN PRN Reason: Nausea/Vomiting Last Admin: 02/01/18 04:37 Dose: 4 mg Oxycodone HCl (Oxycodone Ir) 5 mg PO Q4H PRN PRN Reason: Moderate Pain (4-6) Last Admin: 02/01/18 02:47 Dose: 5 mg Promethazine HCl (Pacu-Phenergan) 6.25 mg IM ONE PRN PRN Reason: Nausea/Vomiting Stop: 02/01/18 17:49 Senna/Docusate Sodium (Senokot S) 2 tab PO BID PRN PRN Reason: Constipation
[2018-02-01 19:49] LABS: #Eosinphils 0.7 thou/uL (0.0-0.7); #Lymphocytes 1.5 thou/uL (1.20-3.40); #Monocytes 0.7 thou/uL (0.11-0.59); #Neutrophils 6.6 thou/uL (1.40-6.50); %Basophils 0.5 % (0.0-1.0); %Eosinophils 7.6 % (0.0-10.0); %Lymphocytes 15.8 % (21.0-51.0); %Monocytes 7.3 % (0.0-10.0); %Neutrophils 68.9 % (42.0-75.0); Hemoglobin 12.6 g/dL (14.0-18.0); Mean Corpuscular HGB CONC 32.4 g/dL (32.0-36.0); Mean Corpuscular Hemoglobin 32.1 pg (27.0-31.0); Mean Platelet Volume 8.2 fL (7.4-10.4); Platelet Count 354 thou/uL (130-400); RBC Distribution Width 13.4 % (11.5-14.5); Red Blood Cell (RBC) Count 3.93 mill/uL (4.70-6.10); White Blood Cell (WBC) Count 9.6 thou/uL (4.8-10.8)
[2018-02-01 20:08] LABS: Anion Gap 19 mmol/L (10-20); BUN (Urea Nitrogen) 33 mg/dL (8.9-20.6); Calc. Creatinine Clearance 15 mL/min (70-130); Calcium 9.7 mg/dL (7.8-10.44); Carbon Dioxide 24 mmol/L (22-29); Chloride 98 mmol/L (98-107); Estimated GFR-MDRD 7; Glucose 134 mg/dL (70-105); Potassium 4.8 mmol/L (3.5-5.1); Sodium 136 mmol/L (136-145)
[2018-02-01] MEDS: Atorvastatin Calcium 10 MG TAB PO SCH (20:54)
[2018-02-02] MEDS: Heparin 5,000 UNITS/ML VIAL SC SCH ×3 (07:52→21:25)
[2018-02-02] MEDS: Carvedilol 3.125 MG TAB PO SCH (07:52)
[2018-02-02] MEDS: hydrALAZINE 25 MG TAB PO SCH ×3 (07:52→21:26)
[2018-02-02] MEDS: Amlodipine 10 MG TAB PO SCH (07:53)
[2018-02-02] MEDS ORDERED: hydrALAZINE 20 MG/ML VIAL SLOW IVP PRN (08:55)
[2018-02-02] MEDS ORDERED: traMADol HCl 50 MG TAB PO PRN (08:56)
[2018-02-02] MEDS ORDERED: Carvedilol 6.25 MG TAB PO SCH (10:00)
--- NOTE | 2018-02-02 10:05 | PRG ---
DATE OF SERVICE: 02/02/2018 SUBJECTIVE: The patient was seen and examined at bedside. He is complaining about pain in his both arms done yesterday. OBJECTIVE: VITAL SIGNS: Blood pressure is 196/106, pulse is 86, respiratory rate is 18, temperature is 98.1, O2 saturation is 96% on room air. HEENT: Head is atraumatic, normocephalic. Eyes are PERRLA. Sclerae nonicteric. Oral mucosa is moist. NECK: Supple. No lymphadenopathy. LUNGS: Clear. HEART: S1 and S2 normal. No S3. No S4. No any murmur. ABDOMEN: Soft, nontender, nondistended. Bowel sounds are present. No organomegaly. EXTREMITIES: Left [id number] amputee with the dressing and both upper extremities dressed, status post I and D done yesterday by Dr. Rodgers. NEUROLOGIC: He is alert and oriented x4. There are no any motor deficits. He follows my commands. His mentation is normal. LABORATORY DATA: No labs today. IMPRESSION: 1. Bilateral upper extremity cellulitis/abscesses, status post incision and drainage yesterday, on vancomycin for Methicillin-resistant Staphylococcus aureus. We will continue antibiotic IV. 2. Chest pain with negative stress test, resolved. 3. End-stage renal disease, on hemodialysis. He is going to have dialysis done today per Dr. Johnson. 4. Chronic anemia that is very likely related to his end-stage renal disease, so plan is to continue his IV antibiotics. Reevaluation per General Surgery for additional debridements as needed. 5. Deep venous thrombosis prophylaxis. Job ID: [id number]
[2018-02-02] MEDS: Vancomycin HCl 750 MG in Sodium Chloride 0.9% 250 ML 250 ML IVPB SCH (11:00)
--- NOTE | 2018-02-02 11:16 | STRESS ---
Acquisition Time: 2018-01-29 09:47:29 Total Exercise Time: 00:04:00 Test Indications: CHEST PAIN Medications: Protocol: ADENOSINE Max HR: 092 BPM 51% of Pred: 178 BPM Max BP: 140/090 mmHG Max Work Load: 1.0 METS RESTING ECG: NORMAL SINUS RHYTHM AT 85 BPM NORMAL BP RESPONSE INTERPRETATION: AWAIT NUCLEAR IMAGES FOR DEFINITIVE DIAGNOSIS Confirmed by JAZMYN LOGAN ([id number]), online editor ADALID CUETO ([id number]) on 02/02/2018 11:15:46 AM Referred By: MD Rebekah ROSAS Confirmed By:JAZMYN LOGAN
[2018-02-02] MEDS: HYDROcodone/Acetaminophen 10/325 mg Tablet PO PRN (12:58)
--- NOTE | 2018-02-02 14:30 | EKG ---
Test Reason : DIZZINESS Blood Pressure : / mmHG Vent. Rate : 096 BPM Atrial Rate : 096 BPM P-R Int : 154 ms QRS Dur : 098 ms QT Int : 400 ms P-R-T Axes : 065 -35 032 degrees QTc Int : 505 ms Normal sinus rhythm Possible Left atrial enlargement Left axis deviation Incomplete right bundle branch block Cannot rule out Inferior infarct , age undetermined Prolonged QT Abnormal ECG Confirmed by ILIR GRACIA MD ([id number]), scientific publications editor ROGER RIVER ([id number]) on 02/02/2018 2:30:07 PM Referred By: Confirmed By:ILIR GRACIA MD
[2018-02-02] MEDS: Carvedilol 6.25 MG TAB PO SCH (18:07)
--- NOTE | 2018-02-02 20:59 | PRG ---
DATE OF SERVICE: 02/02/2018 SUBJECTIVE: Patient was seen and examined at bedside and overnight events noted. Patient denies any shortness of breath or chest pain or palpitation. No history of nausea or vomiting or diarrhea or fever or chills or cramps. OBJECTIVE: GENERAL: This is a 42-year-old male in no apparent distress. VITAL SIGNS: Temperature 98.1, pulse 80, respirations 21, blood pressure 172/76. HEENT: Atraumatic, normocephalic. Oral mucosa is moist NECK: Supple. CARDIOVASCULAR: S1, S2 heard. Rate and rhythm regular. RESPIRATORY: Clear to auscultation. GASTROINTESTINAL: Abdomen is soft. MUSCULOSKELETAL: No tenderness. No edema. DERMATOLOGIC: No skin rash. NEUROLOGIC: Alert and awake and oriented X3. No focal neurologic deficits. Moving all the extremities. PSYCHIATRIC: Mood and affect normal. LABORATORY DATA: Potassium is 4.8, BUN is 33, creatinine is 7.2. ASSESSMENT: 1. End-stage renal disease. Continue dialysis on Sunday, , and Sunday. 2. Edema. We will remove fluid on dialysis. 3. Hypertension. Continue medications. 4. Anemia. Monitor hemoglobin. PLAN: Plan is to continue on dialysis as tolerated. Job ID: [id number]
[2018-02-02] MEDS: Atorvastatin Calcium 10 MG TAB PO SCH (21:27)
[2018-02-03] MEDS: hydrALAZINE 25 MG TAB PO SCH ×3 (08:46→21:32)
[2018-02-03] MEDS: Amlodipine 10 MG TAB PO SCH (08:47)
[2018-02-03] MEDS: Carvedilol 6.25 MG TAB PO SCH ×2 (08:47→17:16)
[2018-02-03] MEDS: Heparin 5,000 UNITS/ML VIAL SC SCH ×3 (08:47→21:33)
[2018-02-03] MEDS: Atorvastatin Calcium 10 MG TAB PO SCH (21:31)
[2018-02-04 05:55] LABS: Anion Gap 18 mmol/L (10-20); BUN (Urea Nitrogen) 41 mg/dL (8.9-20.6); Calc. Creatinine Clearance 14 mL/min (70-130); Calcium 9.4 mg/dL (7.8-10.44); Carbon Dioxide 26 mmol/L (22-29); Chloride 96 mmol/L (98-107); Estimated GFR-MDRD 6; Glucose 138 mg/dL (70-105); Potassium 5.6 mmol/L (3.5-5.1); Sodium 134 mmol/L (136-145)
--- NOTE | 2018-02-04 07:49 | PRG ---
DATE OF SERVICE: 02/03/2018 SUBJECTIVE: Patient was seen and examined at bedside and overnight events noted. Patient denies any shortness of breath or chest pain or palpitation. No history of nausea or vomiting or diarrhea or fever or chills or cramps. OBJECTIVE: GENERAL: This is a well-built male, in no apparent distress. VITAL SIGNS: Temperature 98.7. Heart rate 85. Respiratory rate 20. Blood pressure 193/92. HEENT: Atraumatic, normocephalic. Oral mucosa is moist NECK: Supple. CARDIOVASCULAR: S1, S2 heard. Rate and rhythm regular. RESPIRATORY: Clear to auscultation. GASTROINTESTINAL: Abdomen is soft. MUSCULOSKELETAL: No tenderness. No edema. DERMATOLOGIC: No skin rash. NEUROLOGIC: Alert and awake and oriented X3. No focal neurologic deficits. Moving all the extremities. PSYCHIATRIC: Mood and affect normal. LABORATORY DATA: No labs done today. ASSESSMENT AND PLAN: 1. End-stage renal disease. Continue on dialysis. 2. Edema. 3. Hypertension. 4. Anemia. 5. Okay to change to a regular diet and we will check labs in the morning. . Job ID: [id number]
--- NOTE | 2018-02-04 07:50 | PRG ---
DATE OF SERVICE: 02/03/2018 SUBJECTIVE: The patient was seen and examined at the bedside. He had some complaints about hospital food. Yesterday or so, we gave him heart-healthy, low-salt diet and he is happier with this. Otherwise, he does not have much complaints to offer. His pain in both forearms is significantly diminished after he was started on tramadol yesterday. OBJECTIVE: VITAL SIGNS: Blood pressure is 183/92, pulse is 85, temperature is 98.7, O2 saturation is 97% on room air. HEENT: His head is atraumatic and normocephalic. Eyes are PERRLA. Sclerae are nonicteric. Oral mucosa is moist. NECK: Supple. LUNGS: Clear. HEART: S1 and S2 normal. No S3. No S4. No any murmur. ABDOMEN: Soft, obese, and nontender. EXTREMITIES: No clubbing, cyanosis, or edema. He is a left mlwpu-kqi-ovac amputee. No swelling in lower extremities. NEUROLOGIC: He is alert and oriented x4. There is no any motor deficits. His both forearms wrapped. LABORATORY DATA: None today. IMPRESSION: 1. Bilateral upper extremity cellulitis/abscesses, status post incision and drainage. The patient is on vancomycin for methicillin-resistant Staphylococcus aureus. 2. Chest pain, resolved. The patient had negative stress test during this hospitalization. 3. End-stage renal disease, on hemodialysis per Dr. Johnson. 4. Chronic anemia secondary to end-stage renal disease. PLAN: The patient is going to be seen by general surgeon tomorrow. He will make decision about possible further debridements of the wounds. Those wounds are still growing methicillin-resistant Staph aureus despite of using vancomycin treatment, which is his appropriate antibiotic. By tomorrow, decision can be made about sending him home on vancomycin during hemodialysis sessions and follow up with Wound Care. Job ID: [id number]
[2018-02-04] MEDS: Amlodipine 10 MG TAB PO SCH (09:36)
[2018-02-04] MEDS: Carvedilol 6.25 MG TAB PO SCH ×2 (09:36→17:34)
[2018-02-04] MEDS: hydrALAZINE 25 MG TAB PO SCH ×3 (09:36→20:46)
--- NOTE | 2018-02-04 09:39 | OP ---
DATE OF PROCEDURE: 02/01/2018 PREOPERATIVE DIAGNOSIS: Bilateral forearm abscess. PROCEDURE PERFORMED: Incision and drainage of bilateral forearm abscess. INDICATIONS: This is a 42-year-old male in renal failure, who has already lost 1 leg, who ambulates with a walker, resting his forearms on it. He developed pressure necrosis and abscess on both posterior forearms. This was confirmed by ultrasound. FINDINGS: 2-cm abscesses bilateral. DESCRIPTION OF PROCEDURE: After informed consent was obtained, the patient was taken to the operating room and given general mask anesthesia, placed in the supine position with his forearms flexed. His forearms were prepped and draped in the usual fashion. Local anesthesia with 0.5% Marcaine. Elliptical incision was performed. The cavity was entered. Cultures obtained. The wounds were thoroughly irrigated with saline. Hemostasis achieved with electrocautery, packed open with damp gauze to dry, covered by a Kerlix. The patient tolerated the procedure well and transferred to Recovery in good condition. Job ID: [id number]
[2018-02-04] MEDS: Heparin 5,000 UNITS/ML VIAL SC SCH ×3 (09:40→20:46)
--- NOTE | 2018-02-04 12:20 | PRG ---
DATE OF SERVICE: 02/04/2018 SUBJECTIVE: Patient was seen and examined at bedside and overnight events noted. Patient denies any shortness of breath or chest pain or palpitation. No history of nausea or vomiting or diarrhea or fever or chills or cramps. OBJECTIVE: GENERAL: This is an obese male, in no apparent distress. VITAL SIGNS: blood pressure 150/71. HEENT: Atraumatic, normocephalic. Oral mucosa is moist NECK: Supple. CARDIOVASCULAR: S1, S2 heard. Rate and rhythm regular. RESPIRATORY: Clear to auscultation. GASTROINTESTINAL: Abdomen is soft. MUSCULOSKELETAL: No tenderness. DERMATOLOGIC: No skin rash. NEUROLOGIC: Alert and awake and oriented X3. No focal neurologic deficits. Moving all the extremities. PSYCHIATRIC: Mood and affect normal. LABORATORY DATA: Potassium is 5.6, BUN is 41, and creatinine is 11.0. ASSESSMENT AND PLAN: 1. End-stage renal disease, will have an extra session on dialysis for 2 hours today. 2. Hyperkalemia, replace potassium. 3. Edema. 4. Hypertension. 5. Anemia. Plan is tolerated. Job ID: [id number]
[2018-02-04 13:40] LABS: Vancomycin, Random 15.8 ug/mL (See Comment)
[2018-02-04] MEDS: Vancomycin HCl 750 MG in Sodium Chloride 0.9% 250 ML 250 ML IVPB SCH (14:30)
--- NOTE | 2018-02-04 15:56 | PDOC.PN ---
- Subjective Encounter Start Date: 02/04/18 Encounter Start Time: 15:53 Mr. Wright was seen today in follow-up of bilateral upper extremity cellulitis. He does not have any complaints this afternoon. - Objective Resuscitation Status - Order Detail: 01/29/18 12:26 Resuscitation Status Routine Resuscitation Status: FULL: Full Resuscitation Discussed with: per previous MD order MAR Reviewed: Yes Vital Signs & Weight: Vital Signs (12 hours) Temp Pulse Resp BP BP BP Pulse Ox 02/04/18 11:08 98 F 81 20 150/71 H 97 02/04/18 09:36 81 178/87 H 02/04/18 08:00 97 02/04/18 07:18 98.4 F 81 19 178/63 H 97 Weight Admit Weight 268 lb 11.896 oz Weight 260 lb I&O: 02/03/18 02/04/18 02/05/18 06:59 06:59 06:59 Intake Total 240 Balance 240 Result Diagrams: 02/01/18 19:17 02/04/18 04:25 Phys Exam - Physical Examination HEENT: PERRLA Respiratory: no wheezing, no rales, no rhonchi, clear to auscultation bilateral Cardiovascular: RRR, no significant murmur, no rub Gastrointestinal: soft, non-tender, positive bowel sounds Musculoskeletal: no edema Dx/Plan (1) Cellulitis of arm, left Code(s): L03.114 - CELLULITIS OF LEFT UPPER LIMB Status: Acute (2) Cellulitis of arm, right Code(s): L03.113 - CELLULITIS OF RIGHT UPPER LIMB Status: Acute (3) Hypertension Code(s): I10 - ESSENTIAL (PRIMARY) HYPERTENSION Status: Chronic (4) End stage renal failure on dialysis Code(s): N18.6 - END STAGE RENAL DISEASE; Z99.2 - DEPENDENCE ON RENAL DIALYSIS Status: Chronic Comment: HD per Renal service, monitor clinical trend - Plan * Bilateral upper extremity celulitis- Cultures from wound care growing MRSA- continue Vancomycin with Dialysis * Blood cultures are negative * Possible further debridement today or tomorrow as per General Surgery * HTN- Blood pressure is a bit elevated- will monitor the trend- and adjust medications as needed * ESRD- continue Dialysis as tolerated.
[2018-02-04] MEDS: Atorvastatin Calcium 10 MG TAB PO SCH (20:46)
[2018-02-05] MEDS: HYDROcodone/Acetaminophen 10/325 mg Tablet PO PRN (03:29)
[2018-02-05 06:50] LABS: Albumin 3.3 g/dL (3.5-5.0); Anion Gap 13 mmol/L (10-20); BUN (Urea Nitrogen) 35 mg/dL (8.9-20.6); BUN/Creatinine Ratio 3.55; Calc. Creatinine Clearance 16 mL/min (70-130); Calcium 9.6 mg/dL (7.8-10.44); Carbon Dioxide 29 mmol/L (22-29); Chloride 99 mmol/L (98-107); Estimated GFR-MDRD 7; Glucose 114 mg/dL (70-105); Phosphorus 6.4 mg/dL (2.3-4.7); Potassium 5.4 mmol/L (3.5-5.1); Sodium 136 mmol/L (136-145)
[2018-02-05 07:47] LABS: Vancomycin, Random 17.6 ug/mL (See Comment)
[2018-02-05] MEDS: Ondansetron PF 4 MG/2 ML Vial SLOW IVP PRN (07:49)
[2018-02-05] MEDS: Vancomycin HCl 750 MG in Sodium Chloride 0.9% 250 ML 250 ML IVPB SCH (09:11)
--- NOTE | 2018-02-05 10:32 | PRG ---
DATE OF SERVICE: 02/01/2018 SUBJECTIVE: Patient was seen and examined at bedside and overnight events noted. Patient denies any shortness of breath or chest pain or palpitation. No history of nausea or vomiting or diarrhea or fever or chills or cramps. OBJECTIVE: GENERAL: This is a well-built male, in no acute distress. VITAL SIGNS: Temperature 97.7. Heart rate 82. Respiratory rate 20, blood pressure 169/92. HEENT: Atraumatic, normocephalic. Oral mucosa is moist NECK: Supple. CARDIOVASCULAR: S1, S2 heard. Rate and rhythm regular. RESPIRATORY: Clear to auscultation. GASTROINTESTINAL: Abdomen is soft. MUSCULOSKELETAL: No tenderness. No edema. DERMATOLOGIC: No skin rash. NEUROLOGIC: Alert and awake and oriented X3. No focal neurologic deficits. Moving all the extremities. PSYCHIATRIC: Mood and affect normal. LABORATORY DATA: No labs done today. ASSESSMENT: 1. End-stage renal disease. Continue on dialysis. 2. Edema. 3. Hypertension. 4. Anemia. PLAN: Plan is to continue on dialysis as tolerated. Job ID: [id number]
[2018-02-05] MEDS: Amlodipine 10 MG TAB PO SCH (10:46)
[2018-02-05] MEDS: Heparin 5,000 UNITS/ML VIAL SC SCH ×2 (10:47→14:41)
[2018-02-05] MEDS: Carvedilol 6.25 MG TAB PO SCH ×2 (10:47→18:05)
[2018-02-05] MEDS: hydrALAZINE 25 MG TAB PO SCH ×2 (10:47→14:41)
[2018-02-05 11:39] VITALS: TEMP 98.1
[2018-02-05 12:18] VITALS: BMI 31.8
--- NOTE | 2018-02-05 12:54 | PRG ---
DATE OF SERVICE: 02/05/2018 SUBJECTIVE: Mr. Keller is a 42-year-old gentleman, being seen for end-stage renal disease. The patient denies any nausea, vomiting, or chest pain. OBJECTIVE: GENERAL: Patient is awake, alert. VITAL SIGNS: breathing 16, and blood pressure 170/96. GENERAL APPEARANCE AND MENTAL STATUS: Fair. HEAD/NECK: Normocephalic. Atraumatic. EYES: EOMI. No deformity. EARS: Clear. No ulcers. NOSE: Intact. No lesions. MOUTH: Clear. No discharge. THROAT: Clear. No exudate. LUNGS: Clear. No crackles. CARDIAC: S1, S2. No rub. ABDOMEN: Benign. Bowel sounds positive. GENITALIA/RECTUM: Plascencia absent. BACK/EXTREMITIES: Edema 0+. NEUROLOGICAL: Alert and motor intact. SKIN: LYMPHATICS: LABORATORY DATA: None today. ASSESSMENT AND PLAN: 1. on hemodialysis. 2. Hypertension, stable. 3. Anemia, stable. 4. Medications based on glomerular filtration rate are appropriate. Job ID: [id number]
[2018-02-05 14:42] VITALS: BP 134/80
--- NOTE | 2018-02-05 16:50 | PDOC.PN ---
- Subjective Encounter Start Date: 02/05/18 Encounter Start Time: 14:00 Mr. Wright was seen today in follow-up of bilateral upper extremity cellulitis. He does not have any new complaints. - Objective Resuscitation Status - Order Detail: 01/29/18 12:26 Resuscitation Status Routine Resuscitation Status: FULL: Full Resuscitation Discussed with: per previous MD order MAR Reviewed: Yes Vital Signs & Weight: Vital Signs (12 hours) Temp Pulse Resp BP Pulse Ox 02/05/18 14:41 83 134/80 02/05/18 10:47 83 177/96 H 02/05/18 10:46 87 177/96 H 02/05/18 10:45 98.1 F 20 95 Weight Admit Weight 268 lb 11.896 oz Weight 262 lb Result Diagrams: 02/01/18 19:17 02/05/18 06:00 Phys Exam - Physical Examination Respiratory: no wheezing, no rales, no rhonchi, clear to auscultation bilateral Cardiovascular: RRR, no significant murmur, no rub Gastrointestinal: soft, non-tender, no distention, positive bowel sounds Musculoskeletal: no edema Dx/Plan (1) Cellulitis of arm, left Code(s): L03.114 - CELLULITIS OF LEFT UPPER LIMB Status: Acute (2) Cellulitis of arm, right Code(s): L03.113 - CELLULITIS OF RIGHT UPPER LIMB Status: Acute (3) Hypertension Code(s): I10 - ESSENTIAL (PRIMARY) HYPERTENSION Status: Chronic (4) End stage renal failure on dialysis Code(s): N18.6 - END STAGE RENAL DISEASE; Z99.2 - DEPENDENCE ON RENAL DIALYSIS Status: Chronic Comment: HD per Renal service, monitor clinical trend - Plan * Bilateral Upper extremity cellulitis- This has been stable and wounds look good with good granulation, and red viable bases bilaterally. His blood cultures both were negative * He is stable for discharge home with Arrangements to receive Vancomycin during dialysis- Discussed with Dr. Che.
--- NOTE | 2018-02-06 15:59 | DIS ---
DATE OF ADMISSION: 01/28/2018 DATE OF DISCHARGE: 02/05/2018 DISCHARGE DISPOSITION: Home. PRIMARY DISCHARGE DIAGNOSES: 1. Bilateral upper extremity abscess. 2. End-stage renal disease, on hemodialysis. 3. Hypertension. 4. Hyperlipidemia. DISCHARGE MEDICATIONS: Include, 1. Vancomycin sliding scale with dialysis. 2. Carvedilol 3.125 mg twice a day. 3. Simvastatin 20 mg at bedtime. 4. Renagel 800 mg as directed. 5. Hydralazine 100 mg t.i.d. 6. PhosLo 667 mg as directed. 7. Aspirin 81 mg daily. 8. Amlodipine 10 mg daily. 9. Alprazolam 2 mg twice a day as needed. PROCEDURES DONE DURING ADMISSION: The patient had a nuclear stress test, which was negative and had a soft tissue ultrasound, which demonstrated upper extremity abscess and the patient had an I and D of the bilateral forearm abscesses. Wound cultures grew MRSA. HOSPITAL COURSE: Mr. Wright is a pleasant 42-year-old gentleman, who has a history of end-stage renal disease, on hemodialysis. He presented to the emergency room complaining of generalized body aches and also had some vague chest pain as well. With regard to the chest pain, he had a nuclear stress test which was negative. He was ultimately found to have bilateral upper extremity abscesses, which he was evaluated by General Surgery and underwent I and D of the area. The area remained clean and he underwent some local wound care during his hospital stay and he will be receiving vancomycin via sliding scale with dialysis upon discharge and a referral to Outpatient Wound Care and also to follow up with his primary care physician in 1 to 2 weeks'. Job ID: [id number]
[2018-02-07] MEDS ORDERED: Heparin 10,000 UNITS/ 10 ML VIAL ONE (15:07)
== END 2018-02-05 18:45 | disposition home or self-care (01) | DRG 602 ==
LOC: ERS 00:13 → T4-B 03:10 → 2NO 18:44 → T4-A 01-30 18:15
PROVIDERS: ADMIT Hospitalist; ATTEND Hospitalist
PROC: 5A1D70Z Performance of Urinary Filtration, Intermittent, Less than 6 Hours Per Day (ICD-10-PCS; principal; 2018-01-28)
PROC: 0H9CXZZ Drainage of Left Upper Arm Skin, External Approach (ICD-10-PCS; 2018-02-01)
PROC: 0H9BXZZ Drainage of Right Upper Arm Skin, External Approach (ICD-10-PCS; 2018-02-01)
DX: L02.414 Cutaneous abscess of left upper limb (principal); N18.6 End stage renal disease; I12.0 Hypertensive chronic kidney disease with stage 5 chronic kidney disease or end stage renal disease; L02.413 Cutaneous abscess of right upper limb; L03.114 Cellulitis of left upper limb; L03.113 Cellulitis of right upper limb; B95.62 Methicillin resistant Staphylococcus aureus infection as the cause of diseases classified elsewhere; R07.9 Chest pain, unspecified; D63.1 Anemia in chronic kidney disease; E78.5 Hyperlipidemia, unspecified; E87.5 Hyperkalemia; Z99.2 Dependence on renal dialysis; Z89.512 Acquired absence of left leg below knee; Z91.19 Patient's noncompliance with other medical treatment and regimen; Z79.899 Other long term (current) drug therapy
CPT/HCPCS: 36415; 36416; 76999; 78452; 80048; 80053; 80069; 80202; 82330; 82553; 82803; 83605; 84484; 85025; 87040; 87070; 87077; 87186; 87205; 90935; 93005; 93017; 96365; 96366; 96367; 96368; 96375; A9500; G0257; J0153; J0670; J0696; J1644; J2250; J2270; J2405; J2543; J2704; J3370; J3490; J7050

== ENCOUNTER 2018-05-06 10:32 | Outpatient (CLI) | payer OTHER ==
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
== END 2018-05-06 10:33 | disposition home or self-care (01) ==
LOC: WCC 10:32
PROVIDERS: ATTEND Family Medicine
DX: T87.89 Other complications of amputation stump (principal); I13.2 Hypertensive heart and chronic kidney disease with heart failure and with stage 5 chronic kidney disease, or end stage renal disease; N18.6 End stage renal disease; E11.22 Type 2 diabetes mellitus with diabetic chronic kidney disease; I50.9 Heart failure, unspecified; E11.51 Type 2 diabetes mellitus with diabetic peripheral angiopathy without gangrene; D63.1 Anemia in chronic kidney disease; R56.9 Unspecified convulsions; Z89.512 Acquired absence of left leg below knee
CPT/HCPCS: 11042; 99203; G0463

== ENCOUNTER 2018-06-03 14:35 | Outpatient (CLI) | payer OTHER ==
--- NOTE | 2018-06-03 15:44 | PRG ---
DATE OF SERVICE: 06/03/2018 HISTORY: Mr. Cristofer Wright is a very pleasant 43-year-old gentleman, who presents to the Wound Center for evaluation of an ulceration of his left ixcjn-xpd-nchm amputation stump. The patient was referred to the Wound Center by his retail tire sales manager, Dr. Johnson. The patient again states that he has continued to utilize his prosthesis in spite of the presence of the ulceration. He again states that he is in the process of having a new prosthesis made. PHYSICAL EXAMINATION: VITAL SIGNS: Temperature 98.2, pulse 88, respirations 17, blood pressure 177/84. Accu-Chek 122. EXTREMITIES: An ulceration of the left lateral wewgo-rir-zxfu amputation stump is present, which measures approximately 1.5 x 1.5 cm. Granulation tissue is present within the wound margins. Nonviable tissue present within the wound margins was debrided with an excisional full-thickness debridement with the use of scissors. Callus and desiccated tissue at the periphery of the wound were excised with the use of scissors. No purulent drainage is associated with the wound. No erythema of the skin surrounding the wound is present. No maceration of the skin of the periwound is noted. No significant edema of the left gcxub-gec-byqh amputation stump is appreciated on exam today. ASSESSMENT AND PLAN: 1. Ulceration of left nbgxt-mon-pmnl amputation stump as described above. Dressing changes of Xeroform gauze followed by bordered gauze are to be performed on a daily basis after cleansing and irrigation. The patient will be performing his own dressing changes. I will see Mr. Wright again in 2 weeks. I again have explained to the patient that he should discontinue the use of his prosthesis until his ulceration has healed completely. Again, I have recommended to Mr. Wright that he follow up with his drug regulatory affairs specialist for an adjustment of the present prosthesis in order to provide for greater offloading in the region of the ulceration if he is unwilling to discontinue the use of his prosthesis altogether. 2. History of diabetes mellitus. The patient's Accu-Chek in clinic today is 122. The patient has been reminded that for optimal wound healing. His blood glucoses should remain below 150. 3. Hypertension. 4. End-stage renal disease. 5. Peripheral vascular disease. 6. Congestive heart failure. 7. Anemia. 8. History of seizures. Job ID: [id number]
[2018-06-03] MEDS ORDERED: Sodium Chloride 0.9% 15 ML NEB ONE (18:00)
[2018-06-03] MEDS ORDERED: Lidocaine 2% 11 ML SYR ONE (18:00)
== END 2018-06-03 14:36 | disposition home or self-care (01) ==
LOC: WCC 14:35
PROVIDERS: ATTEND Family Medicine
DX: T87.89 Other complications of amputation stump (principal); E11.22 Type 2 diabetes mellitus with diabetic chronic kidney disease; I13.2 Hypertensive heart and chronic kidney disease with heart failure and with stage 5 chronic kidney disease, or end stage renal disease; N18.6 End stage renal disease; I50.9 Heart failure, unspecified; E11.51 Type 2 diabetes mellitus with diabetic peripheral angiopathy without gangrene; D63.1 Anemia in chronic kidney disease
CPT/HCPCS: 36416; A4218

== ENCOUNTER 2018-06-19 04:21 | Emergency (ER) | payer OTHER ==
[2018-06-19] MEDS ORDERED: Ibuprofen 800 MG TAB ONE (05:02)
== END 2018-06-19 05:23 | disposition home or self-care (01) ==
LOC: ERS 04:21
DX: M79.645 Pain in left finger(s) (principal); I10 Essential (primary) hypertension; E78.5 Hyperlipidemia, unspecified; Z79.899 Other long term (current) drug therapy; Z79.82 Long term (current) use of aspirin
CPT/HCPCS: 99283

== ENCOUNTER 2018-06-20 01:11 | Emergency (ER) | payer OTHER ==
[2018-06-20] MEDS ORDERED: Lidocaine 1% (PF) 30 ML VIAL ONE (01:44)
[2018-06-20] MEDS ORDERED: Ibuprofen 800 MG TAB ONE (01:44)
[2018-06-20] MEDS ORDERED: Bupivacaine 0.5% 10 ML VIAL ONE (01:46)
[2018-06-20] MEDS ORDERED: Bupivacaine 0.5% 10 ML VIAL SC SCH (02:00)
[2018-06-20] MEDS ORDERED: Bacitracin Zinc 1 Packet ONE (02:11)
== END 2018-06-20 02:30 | disposition home or self-care (01) ==
LOC: ERS 01:11
DX: L02.512 Cutaneous abscess of left hand (principal); L03.012 Cellulitis of left finger; I10 Essential (primary) hypertension; E78.5 Hyperlipidemia, unspecified; Z79.899 Other long term (current) drug therapy; Z79.82 Long term (current) use of aspirin
CPT/HCPCS: 10060; J2001; J3490

== ENCOUNTER 2018-08-24 22:43 | Emergency (ER) | payer OTHER ==
[2018-08-24 23:45] LABS: #Basophils 0.1 thou/uL (0.0-0.2); #Eosinphils 0.7 thou/uL (0.0-0.7); #Lymphocytes 1.3 thou/uL (1.20-3.40); #Monocytes 0.7 thou/uL (0.11-0.59); #Neutrophils 4.4 thou/uL (1.40-6.50); %Basophils 0.9 % (0.0-1.0); %Eosinophils 9.6 % (0.0-10.0); %Monocytes 9.8 % (0.0-10.0); %Neutrophils 61.7 % (42.0-75.0); Hemoglobin 11.2 g/dL (14.0-18.0); Mean Corpuscular HGB CONC 32.3 g/dL (32.0-36.0); Mean Corpuscular Hemoglobin 30.7 pg (27.0-31.0); Mean Platelet Volume 8.6 fL (7.4-10.4); Platelet Count 224 thou/uL (130-400); Red Blood Cell (RBC) Count 3.64 mill/uL (4.70-6.10); White Blood Cell (WBC) Count 7.2 thou/uL (4.8-10.8)
[2018-08-25 00:04] LABS: ALT (SGPT) 63 U/L (8-55); AST (SGOT) 75 U/L (5-34); Albumin 3.9 g/dL (3.5-5.0); Alkaline Phosphatase 208 U/L (40-150); Anion Gap 19 mmol/L (10-20); BUN (Urea Nitrogen) 30 mg/dL (8.9-20.6); Bilirubin, Total 0.6 mg/dL (0.2-1.2); Calc. Creatinine Clearance 0 mL/min (70-130); Calcium 9.5 mg/dL (7.8-10.44); Carbon Dioxide 30 mmol/L (22-29); Chloride 92 mmol/L (98-107); Estimated GFR-MDRD 6; Globulin 4.7 g/dL (2.4-3.5); Glucose 138 mg/dL (70-105); Potassium 4.1 mmol/L (3.5-5.1); Protein, Total 8.6 g/dL (6.0-8.3); Sodium 137 mmol/L (136-145)
[2018-08-25] MEDS ORDERED: Bacitracin Zinc 1 Packet ONE (00:42)
[2018-08-25] MEDS ORDERED: Acetaminophen 500 MG TAB ONE (00:42)
== END 2018-08-25 00:50 | disposition home or self-care (01) ==
LOC: ERS 22:43
DX: S80.812A Abrasion, left lower leg, initial encounter (principal); I12.0 Hypertensive chronic kidney disease with stage 5 chronic kidney disease or end stage renal disease; N18.6 End stage renal disease; E78.5 Hyperlipidemia, unspecified; W19.XXXA Unspecified fall, initial encounter; Z79.82 Long term (current) use of aspirin; Z99.2 Dependence on renal dialysis; Z79.899 Other long term (current) drug therapy
CPT/HCPCS: 36415; 80053; 83605; 85025; 99283

== ENCOUNTER 2018-09-25 07:29 | Observation (INO) | payer OTHER ==
[2018-09-25 08:14] LABS: #Basophils 0.1 thou/uL (0.0-0.2); #Eosinphils 0.4 thou/uL (0.0-0.7); #Lymphocytes 1.3 thou/uL (1.20-3.40); #Monocytes 0.5 thou/uL (0.11-0.59); #Neutrophils 4.3 thou/uL (1.40-6.50); %Eosinophils 6.4 % (0.0-10.0); %Lymphocytes 19.9 % (21.0-51.0); %Monocytes 7.6 % (0.0-10.0); %Neutrophils 65.3 % (42.0-75.0); Hemoglobin 10.7 g/dL (14.0-18.0); Mean Corpuscular HGB CONC 32.8 g/dL (32.0-36.0); Mean Corpuscular Hemoglobin 30.5 pg (27.0-31.0); Mean Corpuscular Volume 93.1 fL (78.0-98.0); Mean Platelet Volume 8.9 fL (7.4-10.4); Platelet Count 179 thou/uL (130-400); RBC Distribution Width 15.2 % (11.5-14.5); White Blood Cell (WBC) Count 6.6 thou/uL (4.8-10.8)
[2018-09-25] MEDS ORDERED: hydrALAZINE 20 MG/ML VIAL ONE (08:15)
[2018-09-25 08:26] LABS: ALT (SGPT) Less than 7 U/L (8-55); AST (SGOT) 10 U/L (5-34); Alkaline Phosphatase 116 U/L (40-150); Anion Gap 16 mmol/L (10-20); BUN (Urea Nitrogen) 19 mg/dL (8.9-20.6); Bilirubin, Total 0.7 mg/dL (0.2-1.2); Calc. Creatinine Clearance 0 mL/min (70-130); Calcium 9.7 mg/dL (7.8-10.44); Carbon Dioxide 29 mmol/L (22-29); Chloride 97 mmol/L (98-107); Estimated GFR-MDRD 9; Globulin 4.5 g/dL (2.4-3.5); Glucose 131 mg/dL (70-105); Magnesium 2.1 mg/dL (1.6-2.6); Potassium 3.8 mmol/L (3.5-5.1); Protein, Total 8.5 g/dL (6.0-8.3); Sodium 138 mmol/L (136-145)
[2018-09-25 08:27] LABS: Phosphorus 5.9 mg/dL (2.3-4.7)
[2018-09-25 08:53] LABS: CKMB 3.9 ng/mL (0-6.6)
[2018-09-25] MEDS ORDERED: Aspirin Chewable 81 MG TAB ONE (09:18)
[2018-09-25] MEDS ORDERED: Nitroglycerin 2% Ointment 1 INCH/1 GM Packet ONE (09:18)
[2018-09-25 11:48] VITALS: BMI 39.5
[2018-09-25 12:01] LABS: Troponin I 0.116 ng/mL (< 0.028)
[2018-09-25] MEDS ORDERED: Ondansetron PF 4 MG/2 ML Vial IVP PRN (12:25)
[2018-09-25] MEDS ORDERED: Ondansetron ODT 4 MG TAB SL PRN (12:25)
--- NOTE | 2018-09-25 13:04 | CON ---
DATE OF CONSULTATION: 09/25/2018 CONSULTING PHYSICIAN: Lionel Mccollum MD REASON FOR CONSULT: End-stage renal disease evaluation and care. REASON FOR ADMISSION: Hypertension. HISTORY OF PRESENT ILLNESS: A 43-year-old male with history of hypertension, end-stage renal disease, and hyperlipidemia, came to the hospital with chest pain and was found to have hypertension. No nausea or vomiting. No shortness of breath reported. He had dialysis today. He is due for dialysis tomorrow. He gets dialysis Sunday, , and Sunday. PAST MEDICAL HISTORY: Positive for end-stage renal disease, hypertension, and hyperlipidemia. PAST SURGICAL HISTORY: Left BKA, back surgery, and dialysis access placement. HOME MEDICATIONS: 1. Hydrochlorothiazide. 2. Amlodipine. 3. Aspirin. 4. Calcium acetate. 5. . ALLERGIES: NO KNOWN DRUG ALLERGIES. SOCIAL HISTORY: No smoking, alcohol, or illicit drugs. FAMILY HISTORY: No history of kidney disease. REVIEW OF SYSTEMS: CONSTITUTIONAL: Negative for weight loss or gain, ability to conduct usual activities. SKIN: Negative for rash, itching. EYES: Negative for double vision, pain. ENT/MOUTH: Negative for nose bleeding, neck stiffness, pain, tenderness. CARDIOVASCULAR: Negative for palpitations, dyspnea on exertion, orthopnea. RESPIRATORY: Negative for shortness of breath, wheezing, cough, hemoptysis, fever or night sweats. GASTROINTESTINAL: Negative for poor appetite, abdominal pain, heartburn, nausea, vomiting, constipation, or diarrhea. GENITOURINARY: Negative for urgency, frequency, dysuria, nocturia. MUSCULOSKELETAL: Negative for pain, swelling. NEUROLOGIC/PSYCHIATRIC: Negative for anxiety, depression. ALLERGY/IMMUNOLOGIC: Negative for skin rash, bleeding tendency. Rest are negative. PHYSICAL EXAMINATION: GENERAL: This is a well-built male, in no apparent distress. VITAL SIGNS: Temperature 97.9, pulse 75, respiratory rate 16, and blood pressure . HEENT: Atraumatic, normocephalic. Oral mucosa is moist. NECK: Supple. CARDIOVASCULAR: S1, S2 heard. Rate and rhythm regular. RESPIRATORY: Clear to auscultation. GASTROINTESTINAL: Abdomen is soft. MUSCULOSKELETAL: 1+ edema. DERMATOLOGIC: No skin rash. NEUROLOGIC: Alert and awake. PSYCHIATRIC: Mood and affect normal. LABORATORY DATA: Hemoglobin is 10.7. Potassium 3.8, BUN 19, creatinine 7.87. ASSESSMENT AND PLAN: 1. End-stage renal disease. Continue on dialysis as tolerated. 2. Edema, controlled. 3. Hypertension, stable. 4. Anemia. We will monitor. We will titrate blood pressure medications. We will remove fluid. Dialysis as tolerated. We will monitor. Thank you for the consult. We will plan for dialysis tomorrow and then, TTS as tolerated. Job ID: [id number]
[2018-09-25] MEDS ORDERED: Acetaminophen 325 MG TAB PO PRN (13:20)
[2018-09-25] MEDS ORDERED: Bisacodyl 5 MG TAB PO PRN (13:20)
[2018-09-25] MEDS: Heparin 5,000 UNITS/ML VIAL SC SCH ×2 (14:43→20:20)
[2018-09-25 14:50] LABS: Troponin I 0.148 ng/mL (< 0.028)
[2018-09-25] MEDS ORDERED: ALPRAZolam 1 MG TAB PO PRN (15:51)
[2018-09-25] MEDS: hydrALAZINE 20 MG/ML VIAL SLOW IVP PRN ×2 (15:52→23:31)
[2018-09-25] MEDS ORDERED: Calcium Acetate 667 MG CAP PO PRN (16:06)
[2018-09-25] MEDS ORDERED: Sevelamer Carbonate 800 MG TAB PO PRN (16:07)
--- NOTE | 2018-09-25 16:13 | HP ---
PRIMARY CARE PROVIDER: None. CHIEF COMPLAINT: Elevated blood pressure. HISTORY OF PRESENT ILLNESS: Mr. Wright is a pleasant 43-year-old gentleman, who was seen at [facility] on September 25, 2018. The patient is currently sleepy, but arousable, answering few questions, but falling off asleep. He reports that he did not sleep well last night. He was at dialysis yesterday and was found to have elevated blood pressure. He was also reportedly dizzy. He was advised to go to the emergency room at that time, but went home and presented to the emergency room today. He reports having a headache earlier but not now. He denies any chest pain or shortness of breath. He denies any fevers or chills. He denies any nausea or vomiting. REVIEW OF SYSTEMS: All other systems were reviewed and found to be negative. PAST MEDICAL HISTORY: End-stage renal disease, on hemodialysis Sunday, , and Sunday; hypertension; and dyslipidemia. PAST SURGICAL HISTORY: Back surgery, left below-knee amputation, dialysis fistula, and left upper extremity. SOCIAL HISTORY: The patient denies tobacco use, alcohol use, or recreational drug use. FAMILY HISTORY: He denies any family history of premature coronary artery disease. ALLERGIES: NO KNOWN DRUG ALLERGIES. CURRENT MEDICATIONS: 1. Hydrochlorothiazide 50 mg daily. 2. Amlodipine 10 mg daily. 3. Aspirin 81 mg daily. 4. Calcium acetate 667 mg 3 capsules 3 times a day. 5. Hydralazine 50 mg 3 times a day. 6. Xanax 2 mg as needed. PHYSICAL EXAMINATION: GENERAL: On examination, Mr. Wright is sleepy, but arousable, not in acute distress. He is obese, with a BMI of 39.6. VITAL SIGNS: Blood pressure is 172/86, pulse 82, respiratory rate 18, and oxygen saturation 99% on room air. He is afebrile. EYES: No scleral icterus. No conjunctival pallor. ENT: Moist mucosal membranes. No oropharyngeal erythema or exudates. NECK: Supple, nontender. Trachea is midline. RESPIRATORY: Accessory muscles of breathing are not active. Chest wall movements are symmetric bilaterally. Lungs are clear to auscultation without wheeze, rhonchi, or crepitations. CARDIOVASCULAR: S1 and S2 are heard, regular. Peripheral pulses palpable. No carotid bruit. No pericardial rub. ABDOMEN: Soft, nontender. Bowel sounds heard. No hepatomegaly. No splenomegaly. NEUROLOGIC: Cranial nerves II through XII are intact. MUSCULOSKELETAL: Status post left below-knee amputation. SKIN: No rashes or subcutaneous nodules. LYMPHATIC: No cervical lymphadenopathy. PSYCHIATRIC: Normal mood, normal affect. The patient is oriented to person, place, and time. LABORATORY DATA: Mr. Wright labs and investigations were reviewed. A 12-lead electrocardiogram showed normal sinus rhythm, no ST changes to suggest an acute coronary syndrome. He had normal white count, normocytic anemia with hemoglobin 10.7, normal platelet count, normal sodium, normal potassium, normal blood urea nitrogen, elevated creatinine of 7.87, unremarkable liver profile and indeterminate troponin I x3. Phosphorus is elevated at 5.9. ASSESSMENT AND PLAN: Mr. Wright is a pleasant 43-year-old gentleman, who was seen at [facility] on September 25, 2018. His problem list includes: 1. Hypertensive urgency: In the emergency room, Mr. Wright had blood pressures as high as 194/106. He will be admitted to the hospital for further management of hypertensive urgency. He is currently at maximal doses of amlodipine and hydralazine. We will add Coreg 3.125 mg 2 times a day. We will monitor vital signs and titrate antihypertensives as needed. 2. Dyslipidemia: Continue simvastatin. 3. End-stage renal disease, on hemodialysis: Nephrology Service will be consulted for opinion and help with management. 4. Deep venous thrombosis prophylaxis with heparin. Many thanks for allowing me to participate in your patient's care. Please feel free to contact me with any questions or concerns. LEVEL OF RISK: Moderate. LEVEL OF COMPLEXITY: Moderate. Job ID: [id number]
[2018-09-25] MEDS: Calcium Acetate 667 MG CAP PO SCH (17:56)
[2018-09-25] MEDS: Carvedilol 3.125 MG TAB PO SCH (17:56)
[2018-09-25] MEDS: Sevelamer Carbonate 800 MG TAB PO SCH (17:56)
[2018-09-25] MEDS: hydrALAZINE 25 MG TAB PO SCH (20:18)
[2018-09-25] MEDS ORDERED: Simvastatin 20 MG TAB PO SCH (21:00)
[2018-09-26 06:24] LABS: Anion Gap 16 mmol/L (10-20); BUN (Urea Nitrogen) 31 mg/dL (8.9-20.6); Calc. Creatinine Clearance 20 mL/min (70-130); Calcium 9.7 mg/dL (7.8-10.44); Carbon Dioxide 26 mmol/L (22-29); Chloride 97 mmol/L (98-107); Estimated GFR-MDRD 7; Glucose 142 mg/dL (70-105); Potassium 3.9 mmol/L (3.5-5.1); Sodium 135 mmol/L (136-145)
[2018-09-26 07:09] LABS: #Basophils 0.1 thou/uL (0.0-0.2); #Eosinphils 0.5 thou/uL (0.0-0.7); #Lymphocytes 1.2 thou/uL (1.20-3.40); #Monocytes 0.7 thou/uL (0.11-0.59); %Basophils 1.2 % (0.0-1.0); %Eosinophils 7.1 % (0.0-10.0); %Lymphocytes 16.1 % (21.0-51.0); %Neutrophils 66.7 % (42.0-75.0); Hemoglobin 11.1 g/dL (14.0-18.0); Mean Corpuscular HGB CONC 31.8 g/dL (32.0-36.0); Mean Corpuscular Hemoglobin 30.4 pg (27.0-31.0); Mean Corpuscular Volume 95.5 fL (78.0-98.0); Mean Platelet Volume 9.1 fL (7.4-10.4); Platelet Count 190 thou/uL (130-400); RBC Distribution Width 15.5 % (11.5-14.5); Red Blood Cell (RBC) Count 3.64 mill/uL (4.70-6.10); White Blood Cell (WBC) Count 7.4 thou/uL (4.8-10.8)
[2018-09-26] MEDS: hydrALAZINE 25 MG TAB PO SCH (07:52)
[2018-09-26] MEDS: Calcium Acetate 667 MG CAP PO SCH (07:52)
[2018-09-26] MEDS: Carvedilol 3.125 MG TAB PO SCH (07:53)
[2018-09-26] MEDS: Sevelamer Carbonate 800 MG TAB PO SCH (07:53)
[2018-09-26] MEDS: Heparin 5,000 UNITS/ML VIAL SC SCH (07:53)
[2018-09-26 08:35] VITALS: BP 149/77; TEMP 98.1
[2018-09-26] MEDS ORDERED: Aspirin Chewable 81 MG TAB PO SCH (09:00)
[2018-09-26] MEDS ORDERED: Amlodipine 10 MG TAB PO SCH (09:00)
--- NOTE | 2018-09-26 11:40 | PRG ---
DATE OF SERVICE: 09/26/2018 SUBJECTIVE: Patient was seen and examined at bedside and overnight events noted. Patient denies any shortness of breath or chest pain or palpitation. No history of nausea or vomiting or diarrhea or fever or chills or cramps. OBJECTIVE: GENERAL: This is a well-built male, in no apparent distress. VITAL SIGNS: Temperature 98.1. Heart rate 77. Respiratory rate 20. Blood pressure 149/77. HEENT: Atraumatic, normocephalic. Oral mucosa is moist NECK: Supple. CARDIOVASCULAR: S1, S2 heard. Rate and rhythm regular. RESPIRATORY: Clear to auscultation. GASTROINTESTINAL: Abdomen is soft. MUSCULOSKELETAL: No tenderness. No edema. DERMATOLOGIC: No skin rash. NEUROLOGIC: Alert and awake and oriented X3. No focal neurologic deficits. Moving all the extremities. PSYCHIATRIC: Mood and affect normal. LABORATORY DATA: Potassium 3.9, BUN is 31, and creatinine is 9.7. ASSESSMENT AND PLAN: 1. End-stage renal disease, continue . 2. Edema, controlled. 3. Hypertension, better. 4. Anemia. We will monitor hemoglobin. Continue dialysis as tolerated. Job ID: [id number]
--- NOTE | 2018-09-27 14:13 | DIS ---
DATE OF ADMISSION: 09/25/2018 DATE OF DISCHARGE: 09/26/2018 DISCHARGE DIAGNOSES: 1. Hypertensive urgency. 2. End-stage renal disease, on hemodialysis. 3. Dyslipidemia. HISTORY OF PRESENT ILLNESS: This patient is a 43-year-old male on dialysis for end-stage renal disease, who presented to the ER with complaints of elevated blood pressure. He had gone to dialysis and noted that his blood pressure had been elevated. He was told that he should come to the emergency room, but instead he went home and presented to the emergency room on the day of admission. He was noted to have BP significantly elevated and was subsequently placed on observation status. He was, otherwise, largely asymptomatic. HOSPITAL COURSE: The patient was placed on observation for elevated blood pressure, that has gone as high as 194/106. He was given IV pain medications with good resonse. Coreg was added as an oral regimen. He subsequently underwent hemodialysis and his blood pressure improved substantially. He remained asymptomatic and was felt to be stable for discharge. PHYSICAL EXAMINATION: VITAL SIGNS: On the day of discharge, temperature is 98.1, pulse 77, respirations 20, O2 saturation 99% on room air, BP 149/77. GENERAL APPEARANCE: Age-appropriate male, in no distress. Awake, alert, and oriented. HEART: Regular rate and rhythm. LUNGS: Clear. ABDOMEN: Benign. DISPOSITION: The patient is discharged home. DIET: He will be on a renal diet. ACTIVITIES: His activity level is as tolerated. FOLLOWUP: He will follow up with his PCP in 7 days and Nephrology as well. MEDICATIONS: He will be on a new prescription for carvedilol 3.125 mg b.i.d. He will continue his usual medications including, 1. Amlodipine 10 mg p.o. daily. 2. Hydralazine 100 mg p.o. t.i.d. 3. Simvastatin 20 mg at bedtime. 4. Aspirin 81 mg daily. 5. Xanax 2 mg b.i.d. p.r.n. 6. PhosLo 2001 mg with meals and snacks. 7. Renagel 800 mg p.o. with meals. He can return to the hospital should he have any problems prior to his followup. Job ID: [id number] [facility]
== END 2018-09-26 10:25 | disposition home or self-care (01) ==
LOC: ERS 07:29 → ERHOLD 09:54 → 2SW 11:44
PROVIDERS: ADMIT Internal Medicine; ATTEND Internal Medicine
DX: I16.0 Hypertensive urgency (principal); I12.0 Hypertensive chronic kidney disease with stage 5 chronic kidney disease or end stage renal disease; N18.6 End stage renal disease; E78.5 Hyperlipidemia, unspecified; Z79.82 Long term (current) use of aspirin; Z79.899 Other long term (current) drug therapy; Z99.2 Dependence on renal dialysis
CPT/HCPCS: 36415; 80048; 80053; 82553; 83735; 84100; 84484; 85025; 93005; 96374; 96375; 96376; G0378; J0360; J1644; J2405; Q0162

== ENCOUNTER 2018-10-10 09:16 | Emergency (ER) | payer OTHER ==
[~2018-10-10 09:16] MED LIST: Calcium Chloride 1 GM/10 ML Abboject SYRINGE ONE; EPINEPHrine 1 MG/10 ML Abboject SYRINGE ONE; Sodium Bicarb 50 MEQ/50 ML Abboject 8.4% SYRINGE ONE
== END 2018-10-10 09:33 | disposition expired ==
LOC: ERS 09:16
DX: I46.9 Cardiac arrest, cause unspecified (principal); I12.0 Hypertensive chronic kidney disease with stage 5 chronic kidney disease or end stage renal disease; N18.6 End stage renal disease; I10 Essential (primary) hypertension; E78.5 Hyperlipidemia, unspecified; Z99.2 Dependence on renal dialysis
CPT/HCPCS: 32554; 92950; 96374; 96375; J0171